=== PATIENT | female | born 1930 | race Hispanic/Latino ===

== ENCOUNTER 2016-12-20 11:53 | Observation (INO) | payer MEDICARE ==
[2016-12-20] MEDS ORDERED: Morphine 4 mg/ml ISec IVP STA (12:37)
[2016-12-20] MEDS ORDERED: cefTRIAXone 1 gm 1 GM/100 ML BAG IV STA (12:37)
--- NOTE | 2016-12-20 12:55 | ED PDOC ---
Arrival/HPI - General Chief Complaint: Lower Extremity Problem/Injury Time Seen by Provider: 12/20/16 12:24 Historian: Patient - History of Present Illness Narrative History of Present Illness (Text): 12/20/16 12:24 Zainab Tracey is an 86 year old female, whose past medical history includes chronic left knee pain, who presents to the emergency department complaining of worsening left knee pain for the last 3 days. Patient indicates that her knee has become swollen as well. Patient also states that her pain has become so extreme that she has difficulty ambulating. Patient has no other complaint at this time. PMD: Dr. Mack Time/Duration: < week Symptom Onset: Gradual Symptom Course: Worsening Severity Level: Mild Activities at Onset: Rest Context: Home Past Medical History - Provider Review Nursing Documentation Reviewed: Yes - Infectious Disease Hx of Infectious Diseases: None - Cardiac Hx Cardiac Disorders: Yes (CAROTID ARTERY STENOSIS,H/O RIGHT BB) Hx Hypertension: Yes - Pulmonary Hx Respiratory Disorders: Yes Hx Chronic Obstructive Pulmonary Disease (COPD): Yes - Neurological Hx Neurological Disorder: Yes Hx Dizziness: Yes - HEENT Hx HEENT Disorder: Yes (WEARS RX GLASSES) Hx Cataracts: Yes Hx Glaucoma: Yes - Endocrine/Metabolic Hx Endocrine Disorders: Yes Hx Hypothyroidism: Yes - Musculoskeletal/Rheumatological Hx Falls: No - Gastrointestinal Hx Gastrointestinal Disorders: Yes (HERNIA) - Genitourinary/Gynecological Hx Genitourinary Disorders: No (URGENCY) Hx Reproductive Disorders: No - Psychiatric Hx Depression: No Hx Emotional Abuse: No Hx Physical Abuse: No Hx Substance Use: No - Surgical History Hx Appendectomy: Yes Hx Cholecystectomy: Yes - Anesthesia Hx Anesthesia: Yes - Suicidal Assessment Feels Threatened In Home Enviroment: No Family/Social History - Physician Review Nursing Documentation Reviewed: Yes Family/Social History: No Known Family HX Smoking Status: Former Smoker Hx Alcohol Use: No Hx Substance Use: No Hx Substance Use Treatment: No Allergies/Home Meds Allergies/Adverse Reactions: Allergies cortisone Allergy (Verified 12/20/16 12:08) RASH iodine Allergy (Verified 12/20/16 12:08) RASH cortisone Allergy (Uncoded 12/20/16 12:08) SWELLING flu vaccine Allergy (Uncoded 12/20/16 12:08) RASH Home Medications: Home Meds Medication Instructions Recorded Confirmed Atenolol 25 mg PO DAILY 04/16/12 12/20/16 Bimatoprost [Lumigan 7.5 ml] 1 drop OP HS 04/16/12 12/20/16 Clopidogrel Hydrogen Sulfate 75 mg PO DAILY 04/16/12 12/20/16 [Plavix] Ezetimibe [Zetia] 10 mg PO DAILY 04/16/12 12/20/16 Levothyroxine Sodium 0.075 mg PO DAILY 04/16/12 12/20/16 [Levothyroxine] Aspirin [Aspirin Chewable] 81 mg PO DAILY 03/09/16 12/20/16 Atorvastatin [Lipitor] 10 mg PO DIN 12/20/16 12/20/16 Review of Systems - Review of Systems Hemo/Lymphatic: absent: Easy Bleeding Psychiatric: absent: Depression Physical Exam - Physical Exam Narrative Physical Exam (Text): - Review of Systems Constitutional: Normal. absent: Fatigue, Weight Change, Fevers Eyes: Normal ENT: Normal Respiratory: Normal absent: SOB, Cough, Sputum Cardiovascular: Normal absent: Chest pain, Palpitations, Syncope Gastrointestinal: Normal absent: Abdominal pain, Diarrhea, Nausea, Vomiting Genitourinary: Normal. absent: Dysuria, Frequency, Hematuria Musculoskeletal: Left knee pain and swelling. absent: Arthralgias, Back Pain, Neck Pain Skin: Normal Neurological: Normal absent: Focal Weakness Endocrine: Normal Hemo/Lymphatic: Normal Psychiatric: Normal - Physical exam Patient appears age appropriate, speaking full sentences without difficulty - Systems Exam Head: Present: Atraumatic, Normocephalic Pupils: Present: PERRL Extraocular Muscles: Present: EOMI Conjunctiva: Present: Normal Mouth: Present: Moist Mucous Membranes Neck: Present: Normal Range of Motion. No: MIDLINE TENDERNESS, Paraspinal Tenderness Respiratory/Chest: Present: Clear to Auscultation, Good Air Exchange. No: Respiratory Distress, Accessory Muscle Use, Tachypnic Cardiovascular: Present: Regular Rate and Rhythm, Normal S1, S2, Peripheral Pulses Present. No: Murmurs Abdomen: Present: Normal Bowel Sounds, No: Tenderness, Peritoneal Signs, Rebound, Guarding, Distention Back: Present: Normal Inspection. No: Midline Tenderness, Paraspinal Tenderness Upper Extremity: Present: Normal Inspection. No: Cyanosis, Edema Lower Extremity: Left knee is diffusely swollen, tender to palpation. Warm compared to right. Distal neurovascular fully intact. Neurological: Present: GCS=15, Speech Normal, cranial nerves II through XII fully intact with no cerebellar abnormality, neuro-sensory fully intact. No focal neurological deficits. Skin: Present: Warm, Dry, Normal Color. No: Rashes Lymphatic: Present: OX3, NI, NC Psychiatric: Present: Alert, Oriented x 3, Normal Insight, Normal Concentration Vital Signs Reviewed: Yes Vital Signs Temp Pulse Resp BP Pulse Ox 12/20/16 15:14 90 18 106/50 L 98 12/20/16 12:59 99.2 F 103 H 16 141/45 L 97 12/20/16 12:02 97.6 F 90 16 155/80 H 97 Temperature: Afebrile Blood Pressure: Hypertensive Pulse: Regular Respiratory Rate: Normal Appearance: Positive for: Well-Appearing, Non-Toxic, Comfortable Pain Distress: None Mental Status: Positive for: Alert and Oriented X 3 Medical Decision Making ED Course and Treatment: Impression: 86 year old female complaining of worsening chronic left knee pain and swelling for 3 days. Differential Diagnosis included but are not limited to: Septic joint arthritis vs. Gout vs. Pseudogout Plan: -- Left knee X-ray -- Blood Culture -- Morphine, Rocephin -- Labs -- Reassess and disposition Prior Visits: Notes and results from previous visits were reviewed. Patient last seen in the ED on 12/14/15 for intermittent RLQ pain which radiates to the RUQ for one week. Patient was discharged home. Progress Notes: 12/20/16 14:01 Left Knee X-ray: Creator : Ellis Santiago MD IMPRESSION: Mild degenerative changes 12/20/16 16:18 Arthrocenthesis performed [facility]. intact post procedure pt tolerated well 80cc serosang. fluid aspirated pt reported relief pt and son state they do not feel comfortable being dc'd home dw Dr. Mack, accepted obs under his service dw Dr. Hodges, states will see pt later - Lab Interpretations Lab Results: 12/20/16 13:00 12/20/16 13:00 Lab Results 12/20/16 13:00: Sodium 139, Potassium 4.2, Chloride 102, Carbon Dioxide 26, Anion Gap 15, BUN 12, Creatinine 0.7, Est GFR ( Amer) > 60, Est GFR (Non- Af Amer) > 60, Random Glucose 95, Calcium 8.2 L, Total Bilirubin 1.8 H, AST 142 H, ALT 89 H, Alkaline Phosphatase 123, Total Protein 7.4, Albumin 3.8, Globulin 3.6, Albumin/Globulin Ratio 1.1 12/20/16 13:00: PT 10.6, INR 0.98, APTT 31.0 H 12/20/16 13:00: WBC 8.7, RBC 4.67, Hgb 14.8, Hct 43.3, MCV 92.7, MCH 31.7, MCHC 34.2, RDW 13.6, Plt Count 271, MPV 10.8, Gran % 75.8 H, Lymph % (Auto) 14.2 L, [place] % (Auto) 9.7 H, Eos % (Auto) 0.1 L, Baso % (Auto) 0.2, Gran # 6.55 H, Lymph # 1.2, [place] # 0.8 H, Eos # 0.0, Baso # 0.02, ESR 10 I have reviewed the lab results: Yes - RAD Interpretation Radiology Orders: 12/20/16 12:32 KNEE LEFT 2 VIEWS (AP & LAT) [RAD] Stat - Medication Orders Current Medication Orders: Discontinued Medications Ceftriaxone Sodium (Rocephin 1 Gram Ivpb) 1 gm in 100 mls @ 200 mls/hr IV STAT STA PRN Reason: Protocol Stop: 12/20/16 13:06 Last Admin: 12/20/16 13:15 Dose: 200 mls/hr Lidocaine/Epinephrine (Lidocaine 1%/Epinephrine 1:222541 30 Ml) 30 ml IJ ONCE ONE Stop: 12/20/16 15:11 Last Admin: 12/20/16 15:35 Dose: 30 ml Comments: Given to MD for procedure. Morphine Sulfate (Morphine) 4 mg IVP STAT STA Stop: 12/20/16 12:38 Last Admin: 12/20/16 13:15 Dose: 4 mg Re-Assess: DERRICK Pain Assessment Document 12/20/16 14:15 [facility] (Rec: 12/20/16 15:39 [facility] [id number]) Pain Reassessment Is this a pain reassessment? Yes Sleep Is patient sleeping during reassessment? Yes Presence of Pain Presence of Pain Yes Pain Scale Used Pain Scale Used Numeric Location Left, Right or Bilateral Left Upper or Lower Lower Pain Location Body Site Leg Description Description Constant Intensity of Pain at present 4 Morphine Sulfate (Morphine) 6 mg IVP STAT STA Stop: 12/20/16 14:17 Last Admin: 12/20/16 14:40 Dose: 6 mg - Scribe Statement The provider has reviewed the documentation as recorded by the Alexandro Mays Provider Scribe Attestation: All medical record entries made by the Scribe were at my direction and personally dictated by me. I have reviewed the chart and agree that the record accurately reflects my personal performance of the history, physical exam, medical decision making, and the department course for this patient. I have also personally directed, reviewed, and agree with the discharge instructions and disposition. Disposition/Present on Arrival - Present on Arrival Any Indicators Present on Arrival: No History of DVT/PE: Yes History of Uncontrolled Diabetes: No Urinary Catheter: No History of Decub. Ulcer: No History Surgical Site Infection Following: None - Disposition Have Diagnosis and Disposition been Completed?: Yes Diagnosis: Knee effusion Disposition: HOSPITALIZED Disposition Time: 16:20 Patient Plan: Observation Condition: FAIR Procedure: Fluid Aspiration - Time Performed Time Performed: 16:00 - Time Out Time Out: Side verified, Site verified, Patient ID confirmed, Sterile procedures obs. - Procedure Procedure: Arthrocentesis - Consent Obtained Consent obtained: Written - Performed By Performed by: Attending Physician - Indications Indication(s): Therapeutic, Diagnostic, Joint effusion, Suspected septic joint - Contraindications Contraindications: None - Location Location: Left, Knee - Anesthetic Technique Anesthetic: Lidocaine 1% w/epi Procedure: Usual prep and drape - Appearance Appearance: Serosanguinous (non-purulent) - Drained Drained ml: 80 - Post-procedure Post-procedure: No fluid leak - Complications Complications: None (no bleeding, significantly decreased effusion) - Patient tolerated procedure Patient tolerated procedure: Well
[2016-12-20 13:18] LABS: ADD MANUAL DIFF? NO
[2016-12-20 13:21] LABS: BASO # 0.02 K/mm3 (0.0-2.0); BASO % 0.2 % (0.0-3.0); EOS % 0.1 % (1.5-5.0); GRAN # 6.55 (1.4-6.5); GRAN % 75.8 % (50.0-68.0); HEMATOCRIT 43.3 % (36.0-48.0); LYMPH # 1.2 (1.2-3.4); LYMPH % 14.2 % (22.0-35.0); MEAN CELL VOLUME 92.7 fL (80.0-105.0); MEAN CORPUSCULAR HEMOGLOBIN 31.7 pg (25.0-35.0); MEAN CORPUSCULAR HGB CONC 34.2 g/dl (31.0-37.0); MEAN PLATELET VOLUME 10.8 fl (7.0-11.0); MONO # 0.8 (0.1-0.6); MONO % 9.7 % (1.0-6.0); PLATELET COUNT 271 10^3/uL (120.0-450.0); RED CELL DISTRIBUTION WIDTH 13.6 % (11.5-14.5); WHITE BLOOD COUNT 8.7 10^3/ul (4.5-11.0)
--- NOTE | 2016-12-20 13:44 | RAD ---
PROCEDURE: Left Knee Radiographs. HISTORY: Pain. COMPARISON: None. FINDINGS: BONES: Mild joint space narrowing is seen in the medial and lateral joint space. There is also some meniscal calcification. JOINTS: Normal. No osteoarthritis. JOINT EFFUSION: Small joint effusion OTHER FINDINGS: None. IMPRESSION: Mild degenerative changes
[2016-12-20 13:54] LABS: INR 0.98 (0.93-1.08)
[2016-12-20 14:13] LABS: ALB/GLOB RATIO 1.1 (1.1-1.8); ALKALINE PHOSPHATASE 123 U/L (38-133); ALT/SGPT 89 U/L (7-56); AST/SGOT 142 U/L (15-39); BILIRUBIN,TOTAL 1.8 mg/dL (0.2-1.3); BLOOD UREA NITROGEN 12 mg/dL (7-21); CALCIUM 8.2 mg/dL (8.4-10.5); CARBON DIOXIDE 26 mmol/L (21-33); CHLORIDE 102 mmol/L (98-107); GFR AFRICAN-AMERICAN > 60; GLUCOSE,RANDOM 95 mg/dL (70-110); POTASSIUM 4.2 mmol/L (3.6-5.0); SODIUM 139 mmol/L (132-148); TOTAL PROTEIN 7.4 g/dL (5.8-8.3)
[2016-12-20 14:28] LABS: ERYTHROCYTE SEDIMENTATION RATE 10 mm/hr (0.0-20.0)
[2016-12-20] MEDS ORDERED: Lidocaine 1%/Epinephrine 1:100000 30 ml vial IJ ONE (15:10)
[2016-12-20 17:56] LABS: FLUID TYPE SYNOVIAL FLUID
--- NOTE | 2016-12-20 19:02 | CP.PCM.PN ---
Subjective - Date & Time of Evaluation Date of Evaluation: 12/20/16 Time of Evaluation: 18:56 - Subjective Subjective: Patient was seen for vomiting for as per nurse. She has received total of morphine sulfate 10 mg IV in the ER. This 86 year old woman was admitted Has PMH of carotid stenosis , ASHD, COPD, OA, gait disorder, Vit B12 deficiency, hypothyroidism cholecystectomy , biliary stent, Objective - Vital Signs/Intake and Output Vital Signs (last 24 hours): Temp Pulse Resp BP Pulse Ox 99.2 F 100 H 18 130/65 97 12/20/16 12:59 12/20/16 17:02 12/20/16 17:02 12/20/16 17:02 12/20/16 17:02 145/72;91/min,97.9*F,20/min,95% 2L/min. - Medications Medications: Current Medications Aspirin (Aspirin Chewable) 81 mg PO DAILY ANAY Atenolol (Tenormin) 25 mg PO DAILY ANAY Latanoprost (Xalatan Opht) 0 ml OU HS ANAY Levothyroxine Sodium (Synthroid) 75 mcg PO DAILY ANAY - Labs Labs: PT 10.6 Seconds (9.9-11.8) 12/20/16 13:00 INR 0.98 (0.93-1.08) 12/20/16 13:00 APTT 31.0 Seconds (23.7-30.8) H 12/20/16 13:00 Laboratory Last Values WBC 8.7 10^3/ul (4.5-11.0) 12/20/16 13:00 RBC 4.67 10^6/uL (3.5-6.1) 12/20/16 13:00 Hgb 14.8 gm/dL (12.0-16.0) 12/20/16 13:00 Hct 43.3 % (36.0-48.0) 12/20/16 13:00 MCV 92.7 fL (80.0-105.0) 12/20/16 13:00 MCH 31.7 pg (25.0-35.0) 12/20/16 13:00 MCHC 34.2 g/dl (31.0-37.0) 12/20/16 13:00 RDW 13.6 % (11.5-14.5) 12/20/16 13:00 Plt Count 271 10^3/uL (120.0-450.0) 12/20/16 13:00 MPV 10.8 fl (7.0-11.0) 12/20/16 13:00 Gran % 75.8 % (50.0-68.0) H 12/20/16 13:00 Lymph % (Auto) 14.2 % (22.0-35.0) L 12/20/16 13:00 [place] % (Auto) 9.7 % (1.0-6.0) H 12/20/16 13:00 Eos % (Auto) 0.1 % (1.5-5.0) L 12/20/16 13:00 Baso % (Auto) 0.2 % (0.0-3.0) 12/20/16 13:00 Gran # 6.55 (1.4-6.5) H 12/20/16 13:00 Lymph # 1.2 (1.2-3.4) 12/20/16 13:00 [place] # 0.8 (0.1-0.6) H 12/20/16 13:00 Eos # 0.0 (0.0-0.7) 12/20/16 13:00 Baso # 0.02 K/mm3 (0.0-2.0) 12/20/16 13:00 ESR 10 mm/hr (0.0-20.0) 12/20/16 13:00 PT 10.6 Seconds (9.9-11.8) 12/20/16 13:00 INR 0.98 (0.93-1.08) 12/20/16 13:00 APTT 31.0 Seconds (23.7-30.8) H 12/20/16 13:00 Sodium 139 mmol/L (132-148) 12/20/16 13:00 Potassium 4.2 mmol/L (3.6-5.0) 12/20/16 13:00 Chloride 102 mmol/L (98-107) 12/20/16 13:00 Carbon Dioxide 26 mmol/L (21-33) 12/20/16 13:00 Anion Gap 15 (10-20) 12/20/16 13:00 BUN 12 mg/dL (7-21) 12/20/16 13:00 Creatinine 0.7 mg/dL (0.5-1.4) 12/20/16 13:00 Est GFR ( Amer) > 60 12/20/16 13:00 Est GFR (Non-Af Amer) > 60 12/20/16 13:00 Random Glucose 95 mg/dL (70-110) 12/20/16 13:00 Calcium 8.2 mg/dL (8.4-10.5) L 12/20/16 13:00 Total Bilirubin 1.8 mg/dL (0.2-1.3) H 12/20/16 13:00 AST 142 U/L (15-39) H 12/20/16 13:00 ALT 89 U/L (7-56) H 12/20/16 13:00 Alkaline Phosphatase 123 U/L (38-133) 12/20/16 13:00 C-React Prot High Sens > 15.00 mg/L (1.00-3.00) H 12/20/16 13:00 Total Protein 7.4 g/dL (5.8-8.3) 12/20/16 13:00 Albumin 3.8 g/dL (3.0-4.8) 12/20/16 13:00 Globulin 3.6 gm/dL 12/20/16 13:00 Albumin/Globulin Ratio 1.1 (1.1-1.8) 12/20/16 13:00 Fluid Type Synovial fluid 12/20/16 16:15 - Constitutional Appears: Well, No Acute Distress - Head Exam Head Exam: ATRAUMATIC, NORMAL INSPECTION, NORMOCEPHALIC - Eye Exam Additional comments: Sclera white. - ENT Exam ENT Exam: Mucous Membranes Dry, Mucous Membranes Moist, Normal Exam - Neck Exam Neck Exam: Normal Inspection - Respiratory Exam Respiratory Exam: NORMAL BREATHING PATTERN - Cardiovascular Exam Cardiovascular Exam: REGULAR RHYTHM. absent: JVD - GI/Abdominal Exam GI & Abdominal Exam: Soft (Yes.), Normal Bowel Sounds. absent: Bruit, Distended , Firm, Guarding, Rigid, Tenderness, Hernia, Mass, Organomegaly, Pulsatile Mass , Rebound - Rectal Exam Rectal Exam: Deferred - Extremities Exam Extremities Exam: Normal Inspection - Back Exam Back Exam: NORMAL INSPECTION - Neurological Exam Neurological Exam: Alert, Oriented x3 - Psychiatric Exam Psychiatric exam: Normal Affect, Normal Mood - Skin Skin Exam: Normal Color Assessment and Plan - Assessment and Plan (Free Text) Assessment: A/P:Nausea/Dry Heaves. COPD Elevated LFT's. Biliary obstruction. Carotid stenosis. ASHD. Hypothyroidism. Zofran 4 mg IV x 1. Protonix 40 mg IV now, Protonix 40 mg PO daily. Continue present management.
[2016-12-20] MEDS: Latanoprost 2.5 ml Opht Soln OU SCH (21:23)
[2016-12-20 22:02] LABS: SYNOVIAL FLUID TOTAL COUNT 100 (0-0)
[2016-12-20 22:18] VITALS: BMI 20.5
[2016-12-20] MEDS ORDERED: Pneumococcal 23-Valent Vaccine IM ONE (22:19)
[2016-12-20] MEDS: Vancomycin 1gm in NS 250ml 1 GM/250 ML BAG IVPB SCH (23:30)
[2016-12-21] MEDS: Pantoprazole 40 mg EC Tab PO SCH (05:43)
[2016-12-21] MEDS ORDERED: MethylPREDNISolone Depo 40 mg/ml Inj IM ONE (06:54)
[2016-12-21] MEDS ORDERED: Bupivacaine 0.5% Inj(30mL) IJ ONE (06:54)
[2016-12-21 07:16] LABS: ADD MANUAL DIFF? NO
[2016-12-21 07:26] LABS: BASO # 0.01 K/mm3 (0.0-2.0); BASO % 0.1 % (0.0-3.0); EOS % 0.1 % (1.5-5.0); GRAN # 5.48 (1.4-6.5); GRAN % 71.3 % (50.0-68.0); LYMPH # 1.4 (1.2-3.4); LYMPH % 18.6 % (22.0-35.0); MEAN CORPUSCULAR HEMOGLOBIN 30.7 pg (25.0-35.0); MEAN CORPUSCULAR HGB CONC 33.3 g/dl (31.0-37.0); MEAN PLATELET VOLUME 10.4 fl (7.0-11.0); MONO # 0.8 (0.1-0.6); MONO % 9.9 % (1.0-6.0); PLATELET COUNT 245 10^3/uL (120.0-450.0); RED CELL DISTRIBUTION WIDTH 13.5 % (11.5-14.5); WHITE BLOOD COUNT 7.7 10^3/ul (4.5-11.0)
[2016-12-21 07:52] LABS: ALB/GLOB RATIO 1.2 (1.1-1.8); ALKALINE PHOSPHATASE 305 U/L (38-133); ALT/SGPT 666 U/L (7-56); BILIRUBIN,TOTAL 2.3 mg/dL (0.2-1.3); BLOOD UREA NITROGEN 17 mg/dL (7-21); CALCIUM 9.5 mg/dL (8.4-10.5); CARBON DIOXIDE 26 mmol/L (21-33); CHLORIDE 98 mmol/L (98-107); GFR AFRICAN-AMERICAN > 60; GLUCOSE,RANDOM 90 mg/dL (70-110); POTASSIUM 4.4 mmol/L (3.6-5.0); SODIUM 136 mmol/L (132-148); TOTAL PROTEIN 7.7 g/dL (5.8-8.3)
[2016-12-21 08:00] LABS: FLUID TYPE SYNOVIAL FLUID
[2016-12-21 08:38] LABS: SYNOVIAL FLUID TOTAL COUNT 100 (0-0)
[2016-12-21 08:52] LABS: AST/SGOT 996 U/L (15-39)
[2016-12-21 08:58] LABS: SYNOVIAL FLUID LYMPHOCYTE 13.5 % (0-0); SYNOVIAL FLUID NEUTROPHIL 86.5 % (0-0)
--- NOTE | 2016-12-21 09:25 | CON ---
DATE: 12/21/2016 I knew about the consult yesterday but Dr. Storey told me he aspirated the left knee of fluid with underlying osteoarthritis, so I did not want to repeat that again. The next day, which is today, , she still has an effusion of the left knee. X-ray shows moderate osteoarthritis with decrea sed joint space medially and there is a tense effusion still on the left knee, so I prepped and drape d the knee again and aspirated 60 mL of turbid synovial fluid. No suggestion of an infection. A pre vious white count from the fluid was 25,000 in round numbers and no organisms on Gram stain. So I se nt the fluid that I took out for crystal analysis as it might be pseudogout because there is some tess cification of the meniscus on both sides, medial and lateral. So I injected it with Depo-Medrol and Marcaine. Hopefully will get some good relief, and wait for the final cultures and crystal analysis to come back. Ellis Pope DO cc: [id number] TT: 12/21/2016 09:25:07 Confirmation # [id number] Dictation # [id number] mn
[2016-12-21] MEDS ORDERED: Barium Sulfate Susp 2.1% w/v, 2.0% w/w 450 mL Bottle PO ONE (09:32)
[2016-12-21] MEDS: Levothyroxine 75 MCG TAB PO SCH (09:43)
[2016-12-21] MEDS ORDERED: cefTRIAXone 1 gm 1 GM/100 ML BAG IVPB SCH (10:00)
[2016-12-21] MEDS: Vancomycin 1gm in NS 250ml 1 GM/250 ML BAG IVPB SCH ×2 (11:41→23:11)
--- NOTE | 2016-12-21 12:47 | CON ---
DATE: 12/21/2016 Seen and examined at the bedside earlier this morning. REQUEST FOR CONSULT: For elevated liver functions and nausea. The chart was reviewed. HISTORY OF PRESENT ILLNESS: This is an 86-year-old female with a past medical history of chronic lef t knee pain, carotid artery stenosis, hypertension and cholecystectomy, came to the Emergency Room wi th complaints of worsening left knee pain for the past 3 days. The patient states that the pain is s o bad it is difficult for her to ambulate. She had fluid removed yesterday as well as this morning a s per patient. In review of her labs, on admission she was found to have elevated liver enzymes. Sh e did experience some nausea. No vomiting, no reports of any hematemesis, no shortness of breath or chest pain. No complaints of any current abdominal pain or any change in bowel habits or overt GI bl eed. She does have a history of hiatal hernia. She does complain of some difficulty with swallowing , but no choking on food or fluids. She does have a history of dilated common bile duct with biliary stent. PAST MEDICAL HISTORY: Degenerative arthritis, carotid artery stenosis, COPD, atherosclerotic heart d isease, hypothyroidism, hypertension, diverticulosis, diverticulitis. PAST SURGICAL HISTORY: She had ERCP in the past with biliary stent, history of ascending cholangitis , history of cholecystectomy, appendectomy. ALLERGIES: CORTISONE, IODINE, FLU VACCINE. FAMILY HISTORY: Noncontributory at this time. SOCIAL HISTORY: The patient was a former smoker. Denies ETOH or substance abuse. MEDICATIONS: Reviewed as per MAR. The patient is on Plavix, Lipitor, Tenormin, aspirin, Lumigan, Ze tia and levothyroxine. REVIEW OF SYSTEMS: Systems reviewed with positive findings, see HPI. VITAL SIGNS: Temperature is 97.8, blood pressure is 133/66, pulse 92, respirations 18, 93 O2 sat. LABORATORY DATA: Today are WBC 7.7, H and H are 13.0 and 39.0, platelets are 245. Her PT on admissi on is 10.6, INR is 0.98 and PTT 31.0. Sodium today is 136, K 4.4, BUN 17, creatinine is 0.9. Total bilirubin is 2.3, her AST is 996, ALT 666, alkaline phosphatase is 306; these levels are elevated tod ay. She had a CRP and that was greater than 15.00. On admission, she had an x-ray of the right knee and that showed mild degenerative changes. There is a small joint effusion and some meniscal calcif ication. PHYSICAL EXAMINATION: HEENT: Sclerae are anicteric. NECK: Supple. CARDIAC: S1, S2. LUNGS: With decreased breath sounds but good air entry. No rales or wheeze. ABDOMEN: With bowel sounds. Soft, not distended. No tenderness appreciated on palpation. No rebou nd or guarding. EXTREMITIES: Bilateral knees appear swollen. Lower extremities: Positive pedal pulses. No edema. NEUROLOGIC: Awake, alert, and oriented. ASSESSMENT: This is an 86-year-old female with a history of hypertension, common bile duct dilatatio n with history of ascending cholangitis with endoscopic retrograde cholangiopancreatography in the [facility] with biliary stent, she did have a cholecystectomy, who comes in with complaints of difficulty wit h ambulation, the patient with osteoarthritis of the left knee. She is status post removal of fluid, aspirating of synovial fluid. The patient is noted to have initially elevated liver enzymes, and to day they have gone up. Increasing liver function tests, rule out any common bile duct stones. Other comorbidities are hypothyroidism, carotid stenosis, chronic obstructive pulmonary disease. PLAN: Continue to trend LFTs. Follow up her wound cultures. Avoid any hepatotoxic drugs. We will request for a hepatitis panel and also request for abdominal ultrasound, check CBD ducts. In view of history of large hiatal hernia and complaint of dysphagia, we will request a CT scan of abdomen and pelvis with only oral contrast to further evaluate this, and start the patient on Actigall. Continue DVT prophylaxis. Continue GI prophylaxis. The patient is on Protonix. She is also on IV antibioti cs of ceftriaxone and vancomycin and is also on aspirin. Will change her diet to a clear liquid and later on recommend puree diet after evaluation of CT scan. The patient is also being followed by ID to rule out any septic joint as well as orthopedic. Thank you for this consult and for allowing us to participate in your patient's care. Will make furt her recommendations based upon patient's clinical course. The patient was seen and case discussed wi Dr. Smith. Elva MCNAIR cc: [id number] TT: 12/21/2016 12:46:48 Confirmation # [id number] Dictation # [id number] mn
--- NOTE | 2016-12-21 12:47 | HP ---
HISTORY OF PRESENT ILLNESS: An 86-year-old female who was brought to [place] [facility] with a s everal day history of swelling of the left knee, extreme pain and difficulty walking. PAST MEDICAL HISTORY: Cholecystectomy, biliary stent which has been removed, coronary disease, arter iosclerotic heart disease, hyperlipidemia, hypothyroid disease, glaucoma. SOCIAL HISTORY: She is a nonsmoker, nondrinker. ALLERGY HISTORY: CORTISONE, IODINE AND THE FLU VACCINE. HOME MEDICATIONS: Consist of Synthroid 75 mcg daily, Zetia 10 mg daily, Plavix 75 mg daily, Lumigan 1 drop at bedtime to the eyes, Lipitor 10 mg daily, Tenormin 25 mg daily and Ecotrin 81 mg daily. The patient in the Emergency Room apparently had a drainage of fluid from the left knee and was given IV Rocephin by the Emergency Room physician. However, it was stated that the patient was having suc h severe pain and having difficulty ambulating and it was felt that the patient should be admitted. PHYSICAL EXAMINATION: VITAL SIGNS: She had a low-grade temp of 99.2, her blood pressure was 130/62, respiratory rate was 1 8, oxygen saturation was 97% on room air. NECK: Supple. There is no JVD. LUNGS: Show some chronic rhonchitic changes at the bases. HEART: A regular S1, S2 rhythm. ABDOMEN: Soft with positive bowel sounds. EXTREMITIES: Show swelling of the left knee. There is residual dry Betadine from the tap in the [facility] rgency Room and no evidence of edema. LABORATORY DATA: Showed a WBC of 8.7, RBC 4.67, hemoglobin is 14.8, hematocrit 43.3, platelet count 271. PT of 10.6 with an INR of 0.98, PTT of 31. Chemistry showed normal electrolytes. Her BUN is 1 2, creatinine is 0.7, calcium is 8.2. The total bilirubin is 1.8. The AST is 142. The ALT is 89. C-reactive protein came back at 15. Analysis of the fluid initially showed synovial WBCs of 227,259, RBCs of 36,000, neutrophils 87, lymphocytes 5, monos/macrophages 8 and the comment was that it was a bloody fluid. Consults have been placed with orthopedics and infectious disease. The knee x-ray was reported as sh owing arthritis. Also a consult has been requested with gastroenterology because of the elevation in the liver function tests. Elva Mack MD cc: [id number] TT: 12/21/2016 12:46:29 tn
--- NOTE | 2016-12-21 14:33 | CT ---
PROCEDURE: CT Abdomen and Pelvis with contrast HISTORY: FU hiatal hernia COMPARISON: 12/14/2015 TECHNIQUE: Contrast dose: No IV contrast. Two bottles of Readi-Cat Radiation dose: Total exam DLP = 378 mGy-cm. This CT exam was performed using one or more of the following dose reduction techniques: Automated exposure control, adjustment of the mA and/or kV according to patient size, and/or use of iterative reconstruction technique. FINDINGS: LOWER THORAX: Minimal right basal atelectatic changes LIVER: Unremarkable. No gross lesion or ductal dilatation. GALLBLADDER AND BILE DUCTS: Status post cholecystectomy prominent common bile duct consistent with this postsurgical status and patient's age. No change appreciated PANCREAS: Unremarkable. No gross lesion or ductal dilatation. SPLEEN: Unremarkable. ADRENALS: No interval mass. Bilateral nodular limb mild thickening consistent with nonspecific hyperplasia. No worrisome masses KIDNEYS AND URETERS: Unremarkable. No hydronephrosis. Limited exam regarding evaluating for potential masses without IV contrast VASCULATURE: Unremarkable. No aortic aneurysm. BOWEL: Diverticulosis without gross diverticulitis No obstruction. No gross mural thickening. Redundant and ptotic transverse colon APPENDIX: Normal appendix. PERITONEUM: Unremarkable. No free fluid. No free air. LYMPH NODES: Unremarkable. No enlarged lymph nodes. BLADDER: Unremarkable. REPRODUCTIVE: Unremarkable. BONES: No acute fracture. Senescent changes OTHER FINDINGS: Large hiatal lyakri-puwwwyo-svsuizacs IMPRESSION: Similar-appearing large hiatal hernia. Minimal right lung base atelectatic changes. No other interval changes noted other findings as above
--- NOTE | 2016-12-21 17:37 | US ---
HISTORY: Elevated LFT COMPARISON: CT abdomen and pelvis with a IV contrast performed 12/21/16 TECHNIQUE: Sonographic evaluation of the abdomen. FINDINGS: LIVER: Measures 13.2 cm in sagittal dimension and appears within normal limits of size, shape, and echotexture. No focal hepatic mass identified. The main portal vein appears patent with normal directional flow. Intrahepatic biliary ductal dilatation. GALLBLADDER: Cholecystectomy. COMMON BILE DUCT: Measures 1.2 cm. PANCREAS: Not well visualized. RIGHT KIDNEY: Measures 8.8 x 4.4 x 4.8 cm. Mildly dilated right renal pelvis. No obstructing calculus evident. LEFT KIDNEY: Measures 9.0 x 4.0 x 4.4 cm. No obstructing calculus or hydronephrosis identified. 1.7 x 1.7 x 1.6 cm cyst. SPLEEN: Measures approximately 7.4 cm. AORTA: Limited views appear unremarkable. IVC: Limited views appear unremarkable. OTHER FINDINGS: None. IMPRESSION: Dilated common bile duct in the setting of cholecystectomy. Intrahepatic biliary ductal dilatation. 1.7 cm left renal cyst. Mildly dilated right renal pelvis.
--- NOTE | 2016-12-21 22:01 | CON ---
DATE: 12/21/2016 ADDENDUM This is an addendum to the GI consultation report dictated by Elva Joyner NP. The patient was seen and evaluated earlier today. The patient was admitted with knee pain, which she had aspiration done. The patient was found to have elevated LFTs. The patient also has complaints of intermittent episodes of dysphagia. The patient has a large paraesophageal hernia. Had a surgery done in the past. The CT revealed the hernia, it is a large hernia. The patient also has a history of common bile duct stone, status post ERCPs in the past, stent placement and removal in the past. It was a technically challenging ERCP at that time. The patient was recommended to be on a long-term Actigall, the patient did not complain with that. Now admitted with the elevated LFTs. RECOMMENDATIONS: 1. On examination, the abdomen is soft, as there is no tenderness, would recommend patient to be on liquid diet. 2. Get a CT and abdominal sonogram to further evaluate. We will continue to closely follow up her care and suggest further management based on the clinical course. Thank you very much for allowing me to participate in the care of the patient. Abdifatah Smith MD cc: [id number] TT: 12/21/2016 22:00:13 Confirmation # [id number] Dictation # [id number] salo RUDD
[2016-12-21] MEDS: Latanoprost 2.5 ml Opht Soln OU SCH (22:21)
--- NOTE | 2016-12-21 23:26 | CP.PCM.CON ---
History of Present Illness - History of Present Illness History of Present Illness: 86 year old female with PMH of dyslipidemia, carotid artery stenosis, COPD, HTN , glaucoma, cataracts, hiatal hernia, right breast cyst came in complaining of worsening left knee pain for the past 3 days. She has had pain in the said knee for months now, but this has been worse. It is associated with swelling and redness. She denies fever or chills, no known trauma to the knee or leg, no animal contacts, no travel outside of [place] in the past 3 months, no nausea or vomiting, no chest pain, no SOB, no cough or rhinorrhea, no headache or dizziness, no diarrhea, no dysuria. The patient underwent arthrocentesis of her knee. Infectious Diseases consult is requested to further evaluate and manage. Review of Systems - Review of Systems All systems: reviewed and no additional remarkable complaints except (as per HPI ) Past Patient History - Infectious Disease Hx of Infectious Diseases: None - Past Social History Smoking Status: Former Smoker - CARDIAC Hx Cardiac Disorders: Yes (CAROTID ARTERY STENOSIS,H/O RIGHT BB) Hx Hypercholesterolemia: Yes Hx Hypertension: Yes - PULMONARY Hx Respiratory Disorders: Yes Hx Chronic Obstructive Pulmonary Disease (COPD): Yes - NEUROLOGICAL Hx Neurological Disorder: Yes Hx Dizziness: Yes - HEENT Hx HEENT Problems: Yes (WEARS RX GLASSES, [place]) Hx Cataracts: Yes Hx Glaucoma: Yes - ENDOCRINE/METABOLIC Hx Endocrine Disorders: Yes Hx Hypothyroidism: Yes - INTEGUMENTARY Other/Comment: buttocks slightly red, multiple red areas l knee/lle - MUSCULOSKELETAL/RHEUMATOLOGICAL Hx Falls: No - GASTROINTESTINAL Hx Gastrointestinal Disorders: Yes (hiatal hernia) - GENITOURINARY/GYNECOLOGICAL Hx Genitourinary Disorders: No (URGENCY) - PSYCHIATRIC Hx Substance Use: No - SURGICAL HISTORY Hx Appendectomy: Yes Hx Cholecystectomy: Yes Other/Comment: r breast cyst removed - ANESTHESIA Hx Anesthesia: Yes Meds Allergies/Adverse Reactions: Allergies Allergy/AdvReac Type Severity Reaction Status Date / Time cortisone Allergy RASH Verified 12/20/16 12:08 iodine Allergy RASH Verified 12/20/16 12:08 cortisone Allergy SWELLING Uncoded 12/20/16 12:08 flu vaccine Allergy RASH Uncoded 12/20/16 12:08 - Medications Medications: Current Medications Aspirin (Aspirin Chewable) 81 mg PO DAILY [facility] Atenolol (Tenormin) 25 mg PO DAILY [facility] Latanoprost (Xalatan Opht) 0 ml OU HS [facility] Last Admin: 12/20/16 21:23 Dose: 2.5 ml Levothyroxine Sodium (Synthroid) 75 mcg PO DAILY [facility] Pantoprazole Sodium (Protonix Ec Tab) 40 mg PO 0630 [facility] Physical Exam - Constitutional Appears: Non-toxic, No Acute Distress - Head Exam Head Exam: NORMAL INSPECTION - ENT Exam ENT Exam: Mucous Membranes Moist - Neck Exam Neck exam: Negative for: Lymphadenopathy, Meningismus - Respiratory Exam Respiratory Exam: Decreased Breath Sounds - Cardiovascular Exam Cardiovascular Exam: +S1, +S2 - GI/Abdominal Exam GI & Abdominal Exam: Soft. absent: Tenderness - Extremities Exam Additional comments: left knee with some swelling noted Results - Vital Signs Recent Vital Signs: Last Vital Signs Temp 99.2 F 12/20/16 22:05 Pulse 100 H 12/20/16 22:05 Resp 18 12/20/16 22:05 BP 130/62 12/20/16 22:05 Pulse Ox 97 12/20/16 17:02 - Labs Result Diagrams: 12/21/16 06:45 12/21/16 06:45 Assessment & Plan - Assessment and Plan (Free Text) Plan: Assessment Left knee swelling, R/O septic arthritis, R/O gout, R/O pseudogout S/P arthrocentesis POD #1 dyslipidemia carotid artery stenosis COPD HTN glaucoma cataracts hiatal hernia right breast cyst Plan Started patient on Vancomycin and Rocephin pending knee fluid analysis, cx, blood cx Discussed with Dr. Mack Will monitor clinically
[2016-12-22 05:58] LABS: URIC ACID SYNOVIAL FLUID 3.8 mg/dL (<6.0)
--- NOTE | 2016-12-22 18:53 | PN ---
DATE: 12/22/2016 LOCATION: Room 378, bed 2, [facility]. The patient was seen earlier this morning. SUBJECTIVE: The patient is resting comfortably in bed, not in distress. Has less pain in the left k nee. No fevers overnight. No nausea. OBJECTIVE: VITAL SIGNS: The patient is afebrile, heart rate of 64, respiratory rate of 20. HEAD AND NECK: Normocephalic, atraumatic. No cervical lymphadenopathy. CHEST: Decreased breath sounds bilaterally. HEART: S1 and S2 are normal. ABDOMEN: Soft, nontender, nondistended. EXTREMITIES: For knee examination, on the left side there is decreased swelling and decreased erythe ma. LABORATORY DATA: The knee fluid is showing calcium pyrophosphate crystals. So far, cultures are neg ative x 24 hours from the fluid. There are more than 27,000 WBCs in the knee fluid. ASSESSMENT: We have an 86-year-old female with past medical history of carotid artery stenosis, dysl ipidemia, chronic obstructive pulmonary disease, hypertension, glaucoma, cataracts, hiatal hernia, pr esenting with left knee swelling and effusion. Need to rule out septic arthritis, but this is more l ikely pseudogout. PLAN: We are waiting for final culture results before we discontinue vancomycin and Rocephin, but by tomorrow, if all the cultures continue to be negative, we will stop this, and the patient will need to continued therapy for pseudogout. I will continue to follow this patient clinically. Vargas Weller M.D. cc: [id number] TT: 12/22/2016 18:52:43 Confirmation # [id number] Dictation # [id number] caryl
--- NOTE | 2016-12-22 20:43 | PN ---
DATE: 12/22/2016 This is an 86-year-old female resting in bed comfortably this morning. She offers no specific compla ints, although she does state that she is getting pain in the left knee with movement which is impedi ng her ability to walk. She states that the orthopedist tapped the knee yesterday and sent fluid off for analysis. Nursing staff states that there were no particular problems during the night. PHYSICAL EXAMINATION: VITAL SIGNS: Her temp is 97, blood pressure is 120/64, oxygen saturation is 95% on room air. GENERAL: She is alert and oriented x 3. LUNGS: Clear. HEART: Has a regular S1, S2 rhythm. ABDOMEN: Soft with positive bowel sounds. EXTREMITIES: Show no evidence of edema. The patient has blood cultures which are negative at 48 hours. Fluid analysis from the knee to date is not growing any organisms. She is pending labs. MEDICATIONS: She is currently on Actigall 300 mg b.i.d., Ecotrin 81 mg daily, Plavix 75 mg daily, Pr otonix 40 mg daily. She is on Rocephin and vancomycin IV by infectious disease. Synthroid 75 mcg da prince for hypothyroid disease and Xalatan eyedrops. ASSESSMENT AND PLAN: A request has been made for physical therapy to initiate ambulation with the vernon baez, although the reason for her hospitalization was partially due to the fact that she was having such pain and had difficulty ambulating, which is going to be assessed with occupational and physical therapy. At the same time, she had markedly elevated liver function tests with evidence of dilated intrabiliary system. GI is currently assessing the patient for this. We will continue current level of supportive care in a patient with a past medical history of chronic obstructive pulmonary disease, gallstone disease, status post cholecystectomy, biliary stent yesterday, which has been removed, deg enerative arthritis, chronic obstructive pulmonary disease, arteriosclerotic heart disease and caroti d disease. Elva Mack MD cc: [id number] TT: 12/22/2016 20:43:11 Confirmation # [id number] Dictation # [id number] bina
[2016-12-22] MEDS: Latanoprost 2.5 ml Opht Soln OU SCH (21:18)
[2016-12-22] MEDS: Vancomycin 1gm in NS 250ml 1 GM/250 ML BAG IVPB SCH (23:06)
[2016-12-23] MEDS: Pantoprazole 40 mg EC Tab PO SCH (05:48)
[2016-12-23 06:59] LABS: ADD MANUAL DIFF? NO
[2016-12-23 07:16] LABS: BASO # 0.03 K/mm3 (0.0-2.0); BASO % 0.4 % (0.0-3.0); GRAN # 6.06 (1.4-6.5); GRAN % 74.1 % (50.0-68.0); HEMATOCRIT 40.4 % (36.0-48.0); LYMPH # 1.6 (1.2-3.4); LYMPH % 19.3 % (22.0-35.0); MEAN CELL VOLUME 92.4 fL (80.0-105.0); MEAN CORPUSCULAR HEMOGLOBIN 31.1 pg (25.0-35.0); MEAN CORPUSCULAR HGB CONC 33.7 g/dl (31.0-37.0); MEAN PLATELET VOLUME 10.3 fl (7.0-11.0); MONO # 0.5 (0.1-0.6); MONO % 6.2 % (1.0-6.0); PLATELET COUNT 313 10^3/uL (120.0-450.0); RED CELL DISTRIBUTION WIDTH 13.6 % (11.5-14.5); WHITE BLOOD COUNT 8.2 10^3/ul (4.5-11.0)
[2016-12-23 07:59] LABS: ALB/GLOB RATIO 1.1 (1.1-1.8); ALKALINE PHOSPHATASE 244 U/L (38-133); ALT/SGPT 306 U/L (7-56); AST/SGOT 122 U/L (15-39); BILIRUBIN,DIRECT 0.6 mg/dL (0.0-0.4); TOTAL PROTEIN 7.7 g/dL (5.8-8.3)
--- NOTE | 2016-12-23 08:17 | PN ---
DATE: 12/22/2016 HISTORY OF PRESENT ILLNESS: The chart reviewed, discussed with the nursing staff. The patient's LFT s have been showing an upward trend before. Requested for an MRCP. IMAGING STUDIES: The CT scan was reviewed. The patient has a large hiatal hernia, paraesophageal co mplement. The patient's CAT scan was reviewed. This patient has a common bile duct that appears to be dilated. PLAN: The concern is the large hiatal hernia with paraesophageal complement. Would be a difficult p rocedure for an ERCP on this patient passing the scope and will attempt. We will follow up with the LFTs and discuss with Dr. Mack. Abdifatah Smith MD cc: [id number] TT: 12/23/2016 01:04:57 Confirmation # [id number] Dictation # [id number] mn
[2016-12-23 08:27] LABS: BLOOD UREA NITROGEN 17 mg/dL (7-21); CALCIUM 9.6 mg/dL (8.4-10.5); CARBON DIOXIDE 28 mmol/L (21-33); CHLORIDE 100 mmol/L (98-107); GFR AFRICAN-AMERICAN > 60; GLUCOSE,RANDOM 84 mg/dL (70-110); POTASSIUM 4.7 mmol/L (3.6-5.0); SODIUM 139 mmol/L (132-148)
[2016-12-23] MEDS: Levothyroxine 75 MCG TAB PO SCH (09:30)
--- NOTE | 2016-12-23 10:20 | PN ---
DATE: 12/23/2016 An 86-year-old female resting in bed comfortably this morning. Nursing staff relates that there were no particular problems during the night. The patient states that she is having less pain in the kne e. She did get up and walk to the bathroom. She states that she has not moved her bowels for severa l days. PHYSICAL EXAMINATION: VITAL SIGNS: Her temp is 98, her blood pressure is 133/67, her oxygen sat is 97% on room air, respir atory rate is 18. NECK: Supple. LUNGS: Show scattered rhonchi. HEART: Regular S1, S2 rhythm. ABDOMEN: Soft with positive bowel sounds. EXTREMITIES: Show no evidence of edema. NEUROLOGIC: She is alert and oriented x 3. LABORATORY DATA: Shows that her CBC: WBC is 8.2, RBC 4.37, hemoglobin 13.6, hematocrit 40.4, platel et count is 313. Chemistry shows normal electrolytes, the BUN is 17, the creatinine is 0.7. Her AST is now 122, the ALT is 306 and the alkaline phosphatase is 244. ASSESSMENT AND PLAN: 1. The patient is currently receiving IV antibiotic therapy by infectious disease for possible infec tion of the knee. This is going to be discontinued as the cultures at this time are negative. 2. She is on Xalatan eyedrops for glaucoma, Tenormin 25 mg daily for her hypertension, Synthroid 75 mcg for hypothyroid disease, Protonix 40 mg for history of gastritis. She is on Plavix 75 mg because of her history of arteriosclerotic heart disease, MiraLax 17 grams daily for constipation, Ecotrin 8 1 mg daily for arteriosclerotic heart disease and Actigall 300 mg b.i.d. Gastroenterology is looking at the patient because of the elevation in the LFTs and the ultrasound findings and they are discuss ing with the patient the possibility of a diagnostic study, possibly an endoscopic ultrasound. We wi ll continue current level of care and follow up the patient's lab work. Physical therapy has been re quested to work with the patient to ambulate the patient. Orthopedics is following the patient as we ll. Elva Mack MD cc: [id number] TT: 12/23/2016 10:20:10 Confirmation # [id number] Dictation # [id number] en
[2016-12-23] MEDS: POLYETHYLENE GLYCOL 3350 17 GM/Dose PACKET PO SCH (10:24)
--- NOTE | 2016-12-23 13:19 | PN ---
DATE: 12/23/2016 Seen and examined at the bedside earlier this morning. The patient denies nausea, vomiting, has some abdominal cramps, has not had a bowel movement the past couple of days. She originally does get con stipated at home, does not take any laxatives. Last BM was 4 days ago. Tolerating the clear liquids . VITAL SIGNS: Temperature is 98.1, blood pressure 141/71, pulse 76, respirations 20, 97% room air. LABORATORIES: WBCs 8.2, H and H is 13.6 and 40.4, platelets is 313. Sodium 139, K 4.7, BUN 17, crea tinine 0.7, total bilirubin is 1.0, direct bili 0.6, AST 122, ALT 306, alkaline phosphatase is 244. This shows a downward trend. Her hepatitis panel was negative. The patient had a CAT scan the other day, which shows a large hiatal hernia. CT scan was done and fo und to have large hiatal hernia. Ultrasound was also done. Abdominal ultrasound was also done showi ng 1.7 cm left renal cyst and dilated CBD in the setting of a cholecystectomy. The CBD measured 1.2. cm. The patient's liver enzymes are improving. Other comorbidities history is she does have history of a scending cholangitis with endoscopic retrograde cholangiopancreatogram in the past with a biliary pritesh nt with a history of a cholecystectomy. Originally came in with complaints of difficulty with ambula tion. She has history of osteoarthritis of her left knee, status post synovial fluid aspiration with elevated white blood cells. She also has a history of carotid stenosis and chronic obstructive pulm onary disease. PLAN: Continue to trend LFTs. We will plan for ERCP for further evaluation. The patient has a larg e hiatal hernia with paraesophageal complement. There may be difficulty with the procedure for ERCP on advancing the scope. We will attempt. The patient is on Plavix, which spoke to Dr. Mack and we will hold this. Discussed with the patient as well. The patient is also constipated. We will star t her on MiraLax daily. The Plavix is on hold now. Can continue the aspirin. Continue PPI and the Actigall and monitor her liver enzymes. The patient was seen and case discussed with Dr. Smith. Elva MCNAIR cc: [id number] TT: 12/23/2016 11:25:09 Confirmation # [id number] Dictation # [id number] en
--- NOTE | 2016-12-23 21:00 | CP.PCM.PN ---
Subjective - Date & Time of Evaluation Date of Evaluation: 12/23/16 Time of Evaluation: 11:45 - Subjective Subjective: Comfortable, less pain in the left knee, afebrile. Objective - Vital Signs/Intake and Output Vital Signs (last 24 hours): Temp Pulse Resp BP Pulse Ox 98 F 70 18 130/70 97 12/23/16 16:00 12/23/16 16:00 12/23/16 16:00 12/23/16 16:00 12/23/16 16:00 Intake and Output: 12/23/16 12/24/16 18:59 06:59 Intake Total 540 Balance 540 - Medications Medications: Current Medications Aspirin (Aspirin Chewable) 81 mg PO DAILY [facility] Last Admin: 12/23/16 09:31 Dose: Not Given Atenolol (Tenormin) 25 mg PO DAILY [facility] Last Admin: 12/23/16 09:30 Dose: 25 mg Clopidogrel Bisulfate (Plavix) 75 mg PO DAILY [facility] Last Admin: 12/23/16 09:31 Dose: Not Given Latanoprost (Xalatan Opht) 0 ml OU HS [facility] Last Admin: 12/22/16 21:18 Dose: 2.5 ml Levothyroxine Sodium (Synthroid) 75 mcg PO DAILY [facility] Last Admin: 12/23/16 09:30 Dose: 75 mcg Pantoprazole Sodium (Protonix Ec Tab) 40 mg PO 0630 [facility] Last Admin: 12/23/16 05:48 Dose: 40 mg Polyethylene Glycol (Miralax) 17 gm PO DAILY [facility] Last Admin: 12/23/16 10:24 Dose: 17 gm Ursodiol (Actigall) 300 mg PO BID [facility] Last Admin: 12/23/16 17:06 Dose: 300 mg - Labs Labs: 12/23/16 06:45 12/23/16 06:45 PT 10.6 Seconds (9.9-11.8) 12/20/16 13:00 INR 0.98 (0.93-1.08) 12/20/16 13:00 APTT 31.0 Seconds (23.7-30.8) H 12/20/16 13:00 - Constitutional Appears: Non-toxic, No Acute Distress - ENT Exam ENT Exam: Mucous Membranes Moist - Neck Exam Neck Exam: absent: Lymphadenopathy, Meningismus - Respiratory Exam Respiratory Exam: Decreased Breath Sounds - Cardiovascular Exam Cardiovascular Exam: +S1, +S2 - GI/Abdominal Exam GI & Abdominal Exam: Soft. absent: Tenderness Assessment and Plan - Assessment and Plan (Free Text) Plan: Assessment Left knee swelling, likely pseudogout S/P arthrocentesis POD #3 dyslipidemia carotid artery stenosis COPD HTN glaucoma cataracts hiatal hernia right breast cyst Plan we have discontinued Vancomycin and Rocephin Will continue to monitor clinically
[2016-12-23] MEDS: Latanoprost 2.5 ml Opht Soln OU SCH (21:26)
[2016-12-24] MEDS: Pantoprazole 40 mg EC Tab PO SCH (06:21)
[2016-12-24 07:47] LABS: ADD MANUAL DIFF? NO
[2016-12-24 08:05] LABS: ALB/GLOB RATIO 1.3 (1.1-1.8); ALKALINE PHOSPHATASE 209 U/L (38-133); ALT/SGPT 194 U/L (7-56); AST/SGOT 49 U/L (15-39); BILIRUBIN,DIRECT 0.4 mg/dL (0.0-0.4); BILIRUBIN,TOTAL 0.9 mg/dL (0.2-1.3); BLOOD UREA NITROGEN 12 mg/dL (7-21); CALCIUM 9.1 mg/dL (8.4-10.5); CARBON DIOXIDE 29 mmol/L (21-33); CHLORIDE 102 mmol/L (98-107); GFR AFRICAN-AMERICAN > 60; GLUCOSE,RANDOM 84 mg/dL (70-110); POTASSIUM 4.1 mmol/L (3.6-5.0); SODIUM 139 mmol/L (132-148); TOTAL PROTEIN 6.7 g/dL (5.8-8.3)
[2016-12-24 08:14] LABS: BASO # 0.02 K/mm3 (0.0-2.0); BASO % 0.3 % (0.0-3.0); EOS % 0.6 % (1.5-5.0); GRAN # 4.33 (1.4-6.5); GRAN % 66.2 % (50.0-68.0); HEMATOCRIT 38.8 % (36.0-48.0); LYMPH # 1.6 (1.2-3.4); LYMPH % 24.4 % (22.0-35.0); MEAN CELL VOLUME 92.2 fL (80.0-105.0); MEAN CORPUSCULAR HEMOGLOBIN 30.9 pg (25.0-35.0); MEAN CORPUSCULAR HGB CONC 33.5 g/dl (31.0-37.0); MEAN PLATELET VOLUME 10.1 fl (7.0-11.0); MONO # 0.6 (0.1-0.6); MONO % 8.5 % (1.0-6.0); PLATELET COUNT 288 10^3/uL (120.0-450.0); RED CELL DISTRIBUTION WIDTH 13.6 % (11.5-14.5); WHITE BLOOD COUNT 6.6 10^3/ul (4.5-11.0)
--- NOTE | 2016-12-24 08:19 | PN ---
DATE: 12/23/2016 This is an addendum to the G(I progress report dictated by . The patient was seen and evaluated earlier, discussed with Dr. Mack: PHYSICAL EXAMINATION: ABDOMEN: Soft. There is no tenderness. LFTs have been improving. The patient is on clear liquid diet. We will follow up the LFTs in a.m. If the LFTs are showing downward trend, we will restart the Plavix. The patient has been advised to continue Actigall. Large hiatus hernia. Continue PPI. Thank you very much for allowing us to participate in the car of the patient. Abdifatah Smith MD cc: [id number] TT: 12/24/2016 08:18:26 Confirmation # [id number] Dictation # [id number] tn MTDD
[2016-12-24] MEDS: Levothyroxine 75 MCG TAB PO SCH (09:59)
[2016-12-24] MEDS: POLYETHYLENE GLYCOL 3350 17 GM/Dose PACKET PO SCH ×2 (09:59→10:03)
--- NOTE | 2016-12-24 17:26 | CP.PCM.PN ---
<Casey Kay - Last Filed: 12/24/16 17:22> Subjective - Date & Time of Evaluation Date of Evaluation: 12/24/16 Time of Evaluation: 17:22 - Subjective Subjective: Gi for Dr. Smith Pt s&e w attending. SUZANNE. Denies F/C/N/V/D/CP/SOB. Tolerating liquid diet. LFT trending down. Pt has no complaints. Objective - Vital Signs/Intake and Output Vital Signs (last 24 hours): Temp Pulse Resp BP Pulse Ox 97 F L 63 20 118/68 97 12/24/16 17:18 12/24/16 17:18 12/24/16 17:18 12/24/16 17:18 12/24/16 17:18 Intake and Output: 12/24/16 12/24/16 06:59 18:59 Intake Total 840 Balance 840 - Medications Medications: Current Medications Aspirin (Aspirin Chewable) 81 mg PO DAILY [facility] Last Admin: 12/24/16 09:58 Dose: 81 mg Atenolol (Tenormin) 25 mg PO DAILY [facility] Last Admin: 12/24/16 09:59 Dose: 25 mg Clopidogrel Bisulfate (Plavix) 75 mg PO DAILY [facility] Last Admin: 12/23/16 09:31 Dose: Not Given Latanoprost (Xalatan Opht) 0 ml OU HS [facility] Last Admin: 12/23/16 21:26 Dose: 2.5 ml Levothyroxine Sodium (Synthroid) 75 mcg PO DAILY [facility] Last Admin: 12/24/16 09:59 Dose: 75 mcg Pantoprazole Sodium (Protonix Ec Tab) 40 mg PO 0630 [facility] Last Admin: 12/24/16 06:21 Dose: 40 mg Polyethylene Glycol (Miralax) 17 gm PO DAILY [facility] Last Admin: 12/24/16 10:03 Dose: Not Given Ursodiol (Actigall) 300 mg PO BID [facility] Last Admin: 12/24/16 09:59 Dose: 300 mg - Labs Labs: 12/24/16 07:45 12/24/16 07:45 PT 10.6 Seconds (9.9-11.8) 12/20/16 13:00 INR 0.98 (0.93-1.08) 12/20/16 13:00 APTT 31.0 Seconds (23.7-30.8) H 12/20/16 13:00 - Constitutional Appears: No Acute Distress - Head Exam Head Exam: ATRAUMATIC, NORMAL INSPECTION, NORMOCEPHALIC - Eye Exam Eye Exam: EOMI, Normal appearance, PERRL Pupil Exam: NORMAL ACCOMODATION, PERRL - ENT Exam ENT Exam: Mucous Membranes Moist, Normal Exam - Neck Exam Neck Exam: Full ROM, Normal Inspection. absent: Lymphadenopathy - Respiratory Exam Respiratory Exam: Clear to Ausculation Bilateral, NORMAL BREATHING PATTERN - Cardiovascular Exam Cardiovascular Exam: REGULAR RHYTHM, +S1, +S2. absent: Murmur - GI/Abdominal Exam GI & Abdominal Exam: Soft, Normal Bowel Sounds. absent: Distended, Firm, Tenderness - Extremities Exam Extremities Exam: Full ROM, Normal Capillary Refill, Normal Inspection. absent : Joint Swelling, Pedal Edema - Back Exam Back Exam: NORMAL INSPECTION - Neurological Exam Neurological Exam: Alert, Awake, CN II-XII Intact, Normal Gait, Oriented x3 - Psychiatric Exam Psychiatric exam: Normal Affect, Normal Mood - Skin Skin Exam: Dry, Intact, Normal Color, Warm Assessment and Plan - Assessment and Plan (Free Text) Assessment: 86 F w pmh of paraesophageal hernia admitted for knee effusion found to have elevated LFT Transaminitis: trending down T-bili WNL -Advance diet to pureed diet -Continue PPI -Medical management -Restart anticoagulation DW Dr. Smith <Abdifatah Smith V - Last Filed: 12/25/16 12:51> Objective - Vital Signs/Intake and Output Vital Signs (last 24 hours): Temp Pulse Resp BP Pulse Ox 97 F L 63 20 118/68 97 12/24/16 17:18 12/24/16 17:18 12/24/16 17:18 12/24/16 17:18 12/24/16 17:18 Intake and Output: 12/24/16 12/25/16 18:59 06:59 Intake Total 840 Balance 840 - Medications Medications: Current Medications Aspirin (Aspirin Chewable) 81 mg PO DAILY [facility] Last Admin: 12/24/16 09:58 Dose: 81 mg Atenolol (Tenormin) 25 mg PO DAILY [facility] Last Admin: 12/24/16 09:59 Dose: 25 mg Clopidogrel Bisulfate (Plavix) 75 mg PO DAILY [facility] Last Admin: 12/23/16 09:31 Dose: Not Given Latanoprost (Xalatan Opht) 0 ml OU HS [facility] Last Admin: 12/24/16 21:32 Dose: 2.5 ml Levothyroxine Sodium (Synthroid) 75 mcg PO DAILY [facility] Last Admin: 12/24/16 09:59 Dose: 75 mcg Pantoprazole Sodium (Protonix Ec Tab) 40 mg PO 0630 [facility] Last Admin: 12/24/16 06:21 Dose: 40 mg Polyethylene Glycol (Miralax) 17 gm PO DAILY [facility] Last Admin: 12/24/16 10:03 Dose: Not Given Ursodiol (Actigall) 300 mg PO BID [facility] Last Admin: 12/24/16 19:46 Dose: 300 mg - Labs Labs: 12/24/16 07:45 12/24/16 07:45 PT 10.6 Seconds (9.9-11.8) 12/20/16 13:00 INR 0.98 (0.93-1.08) 12/20/16 13:00 APTT 31.0 Seconds (23.7-30.8) H 12/20/16 13:00 Assessment and Plan - Assessment and Plan (Free Text) Plan: Dr. Smith The patient was seen and examined at bedside. Medical records, lab studies, imagings were reviewed. Last 24 hours events reviewed. Agreed with the above findings and treatment plan as outlined Hiren's notes in the with the addition of the following LFTs showing improving We will resume Plavix advance diet to puree diet
[2016-12-24] MEDS: Latanoprost 2.5 ml Opht Soln OU SCH (21:32)
[2016-12-25] MEDS: Pantoprazole 40 mg EC Tab PO SCH (05:33)
[2016-12-25] MEDS: POLYETHYLENE GLYCOL 3350 17 GM/Dose PACKET PO SCH (10:48)
[2016-12-25] MEDS: Levothyroxine 75 MCG TAB PO SCH (10:48)
--- NOTE | 2016-12-25 17:07 | PN ---
DATE: 12/25/2016 This patient was seen and evaluated earlier today. The patient is now tolerating the pureed diet. S he is back on Plavix. PHYSICAL EXAMINATION: VITAL SIGNS: Temperature is 98.5, pulse 84, blood pressure is 124/85. HEENT: Atraumatic, anicteric. NECK: Supple. HEART: S1, S2 heard. LUNGS: Bilateral air entry present. ABDOMEN: Soft. There is no tenderness. EXTREMITIES: No edema, no cyanosis. LABORATORY DATA: No recent labs today, but yesterday's the labs continued to improve. IMPRESSION: The 86-year-old patient. Followup of the LFTs. Continue the Actigall. The patient donovan s have a large hiatus hernia, paraesophageal type, with narrowing. Did discuss with the patient at [facility] and she would benefit from the long-term pureed diet. Thank you very much for allowing us to participate in the care of the patient. Abdifatah Smith MD cc: [id number] TT: 12/25/2016 17:06:00 Confirmation # [id number] Dictation # [id number] en
--- NOTE | 2016-12-25 19:43 | CP.PCM.PN ---
Subjective - Date & Time of Evaluation Date of Evaluation: 12/25/16 Time of Evaluation: 08:40 - Subjective Subjective: Comfortable, less pain in the left knee, afebrile. Objective - Vital Signs/Intake and Output Vital Signs (last 24 hours): Temp Pulse Resp BP Pulse Ox 97.4 F L 70 20 126/63 98 12/25/16 16:40 12/25/16 16:40 12/25/16 16:40 12/25/16 16:40 12/25/16 16:40 Intake and Output: 12/25/16 12/26/16 18:59 06:59 Intake Total 480 Balance 480 - Medications Medications: Current Medications Acetaminophen (Tylenol 325mg Tab) 650 mg PO Q6H PRN PRN Reason: Arthritis Last Admin: 12/25/16 10:54 Dose: 650 mg Aspirin (Aspirin Chewable) 81 mg PO DAILY [facility] Last Admin: 12/25/16 10:49 Dose: 81 mg Atenolol (Tenormin) 25 mg PO DAILY [facility] Last Admin: 12/25/16 10:54 Dose: 25 mg Clopidogrel Bisulfate (Plavix) 75 mg PO DAILY [facility] Last Admin: 12/25/16 10:48 Dose: 75 mg Latanoprost (Xalatan Opht) 0 ml OU HS [facility] Last Admin: 12/24/16 21:32 Dose: 2.5 ml Levothyroxine Sodium (Synthroid) 75 mcg PO DAILY [facility] Last Admin: 12/25/16 10:48 Dose: 75 mcg Pantoprazole Sodium (Protonix Ec Tab) 40 mg PO 0630 [facility] Last Admin: 12/25/16 05:33 Dose: 40 mg Polyethylene Glycol (Miralax) 17 gm PO DAILY [facility] Last Admin: 12/25/16 10:48 Dose: 17 gm Ursodiol (Actigall) 300 mg PO BID [facility] Last Admin: 12/25/16 18:49 Dose: 300 mg - Labs Labs: 12/24/16 07:45 12/24/16 07:45 PT 10.6 Seconds (9.9-11.8) 12/20/16 13:00 INR 0.98 (0.93-1.08) 12/20/16 13:00 APTT 31.0 Seconds (23.7-30.8) H 12/20/16 13:00 - Constitutional Appears: Non-toxic, No Acute Distress - Head Exam Head Exam: NORMAL INSPECTION - ENT Exam ENT Exam: Mucous Membranes Moist - Neck Exam Neck Exam: absent: Lymphadenopathy, Meningismus - Respiratory Exam Respiratory Exam: Decreased Breath Sounds - Cardiovascular Exam Cardiovascular Exam: +S1, +S2 - GI/Abdominal Exam GI & Abdominal Exam: Soft. absent: Tenderness - Extremities Exam Additional comments: left knee with decreased swelling Assessment and Plan - Assessment and Plan (Free Text) Plan: Assessment Left knee swelling, likely pseudogout S/P arthrocentesis POD #4 dyslipidemia carotid artery stenosis COPD HTN glaucoma cataracts hiatal hernia right breast cyst Plan continue to monitor off antibiotics since she is at risk for nosocomial infections Discussed with Dr. Mack
[2016-12-25] MEDS: Latanoprost 2.5 ml Opht Soln OU SCH (21:19)
[2016-12-26] MEDS: Pantoprazole 40 mg EC Tab PO SCH (05:33)
[2016-12-26] MEDS: Levothyroxine 75 MCG TAB PO SCH (09:01)
[2016-12-26 09:02] LABS: ALB/GLOB RATIO 1.2 (1.1-1.8); ALKALINE PHOSPHATASE 168 U/L (38-133); ALT/SGPT 104 U/L (7-56); AST/SGOT 24 U/L (15-39); BILIRUBIN,TOTAL 0.8 mg/dL (0.2-1.3); BLOOD UREA NITROGEN 14 mg/dL (7-21); CARBON DIOXIDE 26 mmol/L (21-33); CHLORIDE 104 mmol/L (98-107); GFR AFRICAN-AMERICAN > 60; GLUCOSE,RANDOM 83 mg/dL (70-110); POTASSIUM 4.4 mmol/L (3.6-5.0); SODIUM 137 mmol/L (132-148); TOTAL PROTEIN 6.4 g/dL (5.8-8.3)
[2016-12-26] MEDS: POLYETHYLENE GLYCOL 3350 17 GM/Dose PACKET PO SCH (09:02)
--- NOTE | 2016-12-26 09:17 | PN ---
DATE: 12/25/2016 It did not go through the system on the first time. PHYSICAL EXAMINATION: VITAL SIGNS: The temp is 97. The blood pressure is 126/63. The pulse is 70. The oxygen saturation on room air is 98%. GENERAL: The patient is alert and oriented x 3. NECK: Supple. LUNGS: Show diminished breath sounds at the bases. HEART: Regular S1, S2 rhythm with a grade II/ systolic murmur. ABDOMEN: Soft with positive bowel sounds. EXTREMITIES: The left knee has diminished swelling, although it does give the patient some pain. MEDICATIONS: Currently, the patient is on Actigall 300 mg b.i.d., Ecotrin 81 mg daily, MiraLax 17 gr ams daily, Plavix 75 mg daily, Protonix 40 mg daily, Synthroid 75 mcg daily, Tenormin 25 mg daily, Ty lenol 2 tabs q. 6 hours p.r.n. arthritis, and Xalatan eyedrops. She is off of antibiotics. She is awaiting working with rehab with the recommendation for TCU for oc cupational and physical therapy. GI has seen the patient, and her liver function tests are improving . Repeat labs are currently pending. She is being followed by GI. She had an effusion of the left knee treated by Dr. Pope with picture of pseudo gout, and she has severe arthritis in that knee and is having difficulty ambulating, and that is why there is a re commendation by physical therapy people to have physical therapy, and the recommendation was made for TCU. We are awaiting approval from her insurance company. We will follow up the patient's labs. She has a history of COPD, cholecystectomy, remote biliary pritesh nt, which has been removed, degenerative arthritis, arteriosclerotic heart disease, carotid disease, vitamin B12 deficiency. Elva Mack MD cc: [id number] TT: 12/26/2016 09:16:57 Confirmation # [id number] Dictation # [id number] jn
--- NOTE | 2016-12-26 12:07 | PN ---
DATE: 12/26/2016 Seen and examined at the bedside this morning. The patient complains of upper and midabdominal tightness. No nausea or vomiting. She had pureed diet this morning. Denies any shortness of breath or chest pain. VITAL SIGNS: Temperature is 98.1, blood pressure 128/71, pulse 82, respirations 20, 100 on room air. LABORATORY DATA: Today CMP: Sodium 137, K 4.4, her BUN is 14, creatinine is 0.7. Total bilirubin is 0.8, the AST is 24, ALT 104, alk phos is 168. Her liver enzymes continue to improve. PHYSICAL EXAMINATION: HEENT: Sclerae are anicteric. NECK: Supple. CARDIAC: S1 and S2. LUNGS: With decreased breath sounds with good air entry. No rales or wheeze. ABDOMEN: With bowel sounds. Soft. Has some mid/upper abdominal tenderness. No rebound or guarding. EXTREMITIES: No edema. NEUROLOGIC: Awake, alert and oriented. ASSESSMENT/PLAN: An 86-year-old female with large hiatal hernia, periesophageal type, and narrowing, and some upper chest discomfort. The patient did have ultrasound. Noted to have dilated common duct with patient history of cholecystectomy. Liver enzymes were noted to be elevated as well, which have improved. The patient is moving her bowels. She did have a bowel movement yesterday. No diarrhea. Continue to trend LFTs. Continue the Actigall. The patient has history of ascending cholangitis with ERCP and biliary stent in the past. She has history of carotid stenosis. Will continue PPI. She is on Protonix 40 in the morning and we will add Pepcid 20 mg in the evening starting today. If patient continues to have this chest discomfort, we will consider endoscopy. The patient's Plavix has been resumed. Can consider diagnostic, but if also continues, consider cardiac evaluation. The patient is on MiraLax as well and will change the diet right now to clear liquids. The patient was seen and case discussed with Dr. Smith. Elva Anya TABBY cc: [id number] TT: 12/26/2016 11:39:12 Confirmation # [id number] Dictation # [id number] mn TOBIN
--- NOTE | 2016-12-26 18:04 | PN ---
DATE: 12/26/2016 This is an 86-year-old female resting comfortably in bed this morning. Nursing staff relates that th ere were no problems during the day or night. PHYSICAL EXAMINATION: VITAL SIGNS: Temperature is 98, blood pressure is 126/71, oxygen saturation 98% on room air. GENERAL: The patient is alert and oriented x 3. LUNGS: Show diminished breath sounds. HEART: S1, S2 rhythm. ABDOMEN: Soft with positive bowel sounds. EXTREMITIES: Show no evidence of edema. The left knee is still a little sore. LABORATORY DATA: Her chemistries show sodium 137, potassium 4.4, chloride 104. BUN 14, creatinine o f 0.7. AST is now normal at 24, ALT is 104, alkaline phosphatase is 168. ASSESSMENT AND PLAN: The patient was treated for acute pseudogout of the left knee. She is on Actig all with a history of cholecystectomy and biliary stent disease. Her elevated LFTs, which are now im proving were felt to be secondary to possibly some gallstone passage or biliary sludge. She continue s on her cardiac medications of aspirin, Plavix and atenolol. She is on Xalatan eye drops. She is o n Tenormin 25 mg daily. She is on Synthroid replacement therapy at 75 mcg daily, and Protonix 40 mg daily. It has been recommended by physical therapy that the patient go to TCU. We are awaiting acce ptance on the TCU through her insurance. She continues to feel a bit better each day. She is follow ed by GI for her LFTs and infectious disease. We will continue current level of care, awaiting appro denise by her insurance company for her rehab as recommended by physical therapy. Elva Mack MD cc: [id number] TT: 12/26/2016 18:03:12 Confirmation # [id number] Dictation # [id number] mn
--- NOTE | 2016-12-26 18:48 | CP.PCM.PN ---
Subjective - Date & Time of Evaluation Date of Evaluation: 12/26/16 Time of Evaluation: 12:15 - Subjective Subjective: Comfortable, afebrile, not in distress. Objective - Vital Signs/Intake and Output Vital Signs (last 24 hours): Temp Pulse Resp BP Pulse Ox 98.6 F 69 20 116/76 98 12/26/16 16:00 12/26/16 16:00 12/26/16 16:00 12/26/16 16:00 12/26/16 16:00 Intake and Output: 12/26/16 12/26/16 06:59 18:59 Intake Total 120 Balance 120 - Medications Medications: Current Medications Acetaminophen (Tylenol 325mg Tab) 650 mg PO Q6H PRN PRN Reason: Arthritis Last Admin: 12/25/16 10:54 Dose: 650 mg Aspirin (Aspirin Chewable) 81 mg PO DAILY [facility] Last Admin: 12/26/16 09:01 Dose: 81 mg Atenolol (Tenormin) 25 mg PO DAILY [facility] Last Admin: 12/26/16 09:01 Dose: 25 mg Clopidogrel Bisulfate (Plavix) 75 mg PO DAILY [facility] Last Admin: 12/26/16 09:02 Dose: 75 mg Famotidine (Pepcid) 20 mg PO HS [facility] Latanoprost (Xalatan Opht) 0 ml OU HS [facility] Last Admin: 12/25/16 21:19 Dose: 2.5 ml Levothyroxine Sodium (Synthroid) 75 mcg PO DAILY [facility] Last Admin: 12/26/16 09:01 Dose: 75 mcg Pantoprazole Sodium (Protonix Ec Tab) 40 mg PO 0630 [facility] Last Admin: 12/26/16 05:33 Dose: 40 mg Polyethylene Glycol (Miralax) 17 gm PO DAILY [facility] Last Admin: 12/26/16 09:02 Dose: 17 gm Ursodiol (Actigall) 300 mg PO BID [facility] Last Admin: 12/26/16 17:14 Dose: 300 mg - Labs Labs: 12/24/16 07:45 12/26/16 07:00 PT 10.6 Seconds (9.9-11.8) 12/20/16 13:00 INR 0.98 (0.93-1.08) 12/20/16 13:00 APTT 31.0 Seconds (23.7-30.8) H 12/20/16 13:00 - Constitutional Appears: Non-toxic, No Acute Distress - Head Exam Head Exam: NORMAL INSPECTION - Respiratory Exam Respiratory Exam: Decreased Breath Sounds - Cardiovascular Exam Cardiovascular Exam: +S1, +S2 - GI/Abdominal Exam GI & Abdominal Exam: Soft. absent: Tenderness Assessment and Plan - Assessment and Plan (Free Text) Plan: Assessment Left knee swelling, likely pseudogout S/P arthrocentesis POD #6 dyslipidemia carotid artery stenosis COPD HTN glaucoma cataracts hiatal hernia right breast cyst Plan continue to monitor off antibiotics since she is at risk for healthcare- associated infections
[2016-12-26] MEDS: Latanoprost 2.5 ml Opht Soln OU SCH (23:25)
--- NOTE | 2016-12-27 00:42 | PN ---
DATE: 12/26/2016 ADDENDUM: This is an addendum to the GI progress report dictated by Elva Joyner APN. SUBJECTIVE: The patient is now tolerating the pureed diet. Some complaints of lower abdomen and epi gastric pain across in the upper abdomen area, especially after eating food and she is finding it dif ficult. PHYSICAL EXAMINATION: ABDOMEN: Soft. Bowel sounds present. LABORATORY DATA: The patient also on Actigall. The LFTs continue showing improvement. Thank you very much for allowing us to participate in the care of the patient. Abdifatah Smith MD cc: [id number] TT: 12/27/2016 00:41:42 Confirmation # [id number] Dictation # [id number] mn
[2016-12-27] MEDS: Pantoprazole 40 mg EC Tab PO SCH (05:48)
[2016-12-27 08:13] VITALS: BP 124/63; PULSE 81; RESP 18; TEMP 98.8; O2SAT 95
--- NOTE | 2016-12-27 10:08 | PN ---
DATE: 12/27/2016 This is an 86-year-old female resting comfortably this morning. The nursing staff relates that there were no particular problems during the night. PHYSICAL EXAMINATION: VITAL SIGNS: Temp is 98.8, blood pressure is 124/63, oxygen saturation is 95% on room air. GENERAL: She is alert and oriented x 3. LUNGS: Show diminished breath sounds at the bases. HEART: Has an S1, S2 rhythm. ABDOMEN: Soft with positive bowel sounds. EXTREMITIES: No evidence of edema. There is soreness over the left knee and she has difficulty ambu lating. She is working with physical therapy at this time. She has completed a course of antibiotics and was treated for pseudogout of the knee. She is awaiting acceptance to the transitional care unit and proval by her insurance company. CURRENT MEDICATIONS: She currently is on Actigall 300 mg b.i.d., Ecotrin 81 mg daily, MiraLax 17 gra ms daily, Pepcid 20 mg at bedtime, Plavix 75 mg daily, Protonix 40 mg daily, Synthroid 75 mcg daily, atenolol 25 mg daily, Tylenol 2 tabs q. 6 hours p.r.n. for pain, and Xalatan eyedrops at bedtime. We will continue current level of care. She is working with physical therapy. Elva Mack MD cc: [id number] TT: 12/27/2016 10:07:07 Confirmation # [id number] Dictation # [id number] bina
[2016-12-27] MEDS: Levothyroxine 75 MCG TAB PO SCH (10:52)
[2016-12-27] MEDS: POLYETHYLENE GLYCOL 3350 17 GM/Dose PACKET PO SCH (10:54)
--- NOTE | 2016-12-27 12:41 | PN ---
DATE: 12/27/2016 Seen and examined at the bedside late this morning. The patient still gets the tightness around her upper abdomen, but no nausea or vomiting. Tolerating the clear liquids. The patient had a bowel movement; it was slightly loose but no melena or bright red blood per rectum. VITAL SIGNS: Temperature is 98.8, blood pressure is 124/63, pulse 81, respirations 18, 95 on room air. LABORATORY DATA: No new labs are noted for today. PHYSICAL EXAMINATION: HEENT: Sclerae are anicteric. NECK: Supple. CARDIAC: S1, S2. LUNGS: With decreased breath sounds at the bases, but no rales or wheeze. ABDOMEN: With bowel sounds. Soft, nontender. EXTREMITIES: No edema. ASSESSMENT: This is an 86-year-old female with a large hiatal hernia, paraesophageal type, found to have elevated liver enzymes. The patient had abdominal ultrasound and noted to have dilated common duct. She does have a history of ascending cholangitis with ERCP and stent in the past. The patient did have history of a cholecystectomy. She also has a history of osteoarthritis and pain in the left knee, status post synovial fluid aspiration. Other comorbidities are chronic obstructive pulmonary disease and carotid stenosis. PLAN: Will increase her diet this afternoon. She is looking forward to eating. Will do a pureed diet. Continue to trend LFTs, which are getting better. Will order labs for tomorrow. She is on Plavix and aspirin, is on Pepcid and Protonix. Continue MiraLax, but hold for any loose stools, and is on Actigall. The patient was seen and case discussed with Dr. Smith. Elva Anya TABBY cc: [id number] TT: 12/27/2016 12:40:27 Confirmation # [id number] Dictation # [id number] prashanth RUDD
--- NOTE | 2016-12-27 20:43 | CP.PCM.PN ---
Subjective - Date & Time of Evaluation Date of Evaluation: 12/27/16 Time of Evaluation: 13:20 - Subjective Subjective: Comfortable, not in distress, less pain in the left knee. Objective - Vital Signs/Intake and Output Vital Signs (last 24 hours): Temp Pulse Resp BP Pulse Ox 98.8 F 81 18 124/63 95 12/27/16 06:00 12/27/16 10:53 12/27/16 06:00 12/27/16 10:53 12/27/16 06:00 Intake and Output: 12/27/16 12/28/16 18:59 06:59 Intake Total 480 Balance 480 - Labs Labs: 12/24/16 07:45 12/26/16 07:00 PT 10.6 Seconds (9.9-11.8) 12/20/16 13:00 INR 0.98 (0.93-1.08) 12/20/16 13:00 APTT 31.0 Seconds (23.7-30.8) H 12/20/16 13:00 - Constitutional Appears: Non-toxic, No Acute Distress - Head Exam Head Exam: NORMAL INSPECTION - ENT Exam ENT Exam: Mucous Membranes Moist - Neck Exam Neck Exam: absent: Lymphadenopathy, Meningismus - Respiratory Exam Respiratory Exam: Decreased Breath Sounds - Cardiovascular Exam Cardiovascular Exam: +S1, +S2 - GI/Abdominal Exam GI & Abdominal Exam: Soft. absent: Tenderness Assessment and Plan - Assessment and Plan (Free Text) Plan: Assessment Left knee swelling, likely pseudogout S/P arthrocentesis POD #6 dyslipidemia carotid artery stenosis COPD HTN glaucoma cataracts hiatal hernia right breast cyst Plan continue to monitor off antibiotics since she is at risk for nosocomial infections
--- NOTE | 2016-12-28 02:26 | PN ---
DATE: 12/27/2016 ADDENDUM: This is an addendum to the GI progress report dictated by Elva Joyner NP. SUBJECTIVE: The patient still complains of some discomfort in the lower chest and epigastric area. The patient does have a large hiatus hernia. The patient has been on PPI. IMPRESSION AND PLAN: The likely cause for her pain could be secondary to the large paraesophageal he rnia. Possibility of ulcers has to be also considered. The patient is already on PPI on pureed diet . It may be a reasonable thing to consider an upper gastrointestinal series to further evaluate. Th e patient's transaminases and liver enzymes continue to improve. Will continue the Actigall on a gideon mi-term basis. Thank you very much for allowing us to participate in the care of the patient. Abdifatah Smith MD cc: [id number] TT: 12/28/2016 02:26:04 Confirmation # [id number] Dictation # [id number] mn
== END 2016-12-27 17:53 ==
LOC: ED 11:53 → ERH 16:21 → 3RSO 18:19 → INTOOBSV 12-21 12:31 → OBSVTOIN 12-21 12:31
PROVIDERS: ADMIT Internal Medicine; ATTEND Internal Medicine
DX: M11.262 Other chondrocalcinosis, left knee (principal); J44.9 Chronic obstructive pulmonary disease, unspecified; I65.29 Occlusion and stenosis of unspecified carotid artery; M17.12 Unilateral primary osteoarthritis, left knee; I25.10 Atherosclerotic heart disease of native coronary artery without angina pectoris; I10 Essential (primary) hypertension; E03.9 Hypothyroidism, unspecified; E78.5 Hyperlipidemia, unspecified; G89.29 Other chronic pain; K44.9 Diaphragmatic hernia without obstruction or gangrene; R13.10 Dysphagia, unspecified; E53.8 Deficiency of other specified B group vitamins; K29.70 Gastritis, unspecified, without bleeding; K59.00 Constipation, unspecified; R79.89 Other specified abnormal findings of blood chemistry; H26.9 Unspecified cataract; H40.9 Unspecified glaucoma; Z79.02 Long term (current) use of antithrombotics/antiplatelets; Z90.49 Acquired absence of other specified parts of digestive tract; Z87.891 Personal history of nicotine dependence
CPT/HCPCS: 20610; 36415; 73560; 74176; 76700; 80053; 80074; 82945; 84157; 84560; 85025; 85610; 85651; 85730; 86140; 87040; 87070; 89051; 89060; 96365; 96366; 96367; 96375; 96376; 97116; 97162; 97530; 99285; C9113; G0378; G8978; G8979; J0696; J2270; J2405

== ENCOUNTER 2016-12-27 18:57 | Inpatient (IN) | payer MEDICARE ==
[2016-12-27] MEDS: Latanoprost 2.5 ml Opht Soln OU SCH (21:48)
[2016-12-28] MEDS: Levothyroxine 75 MCG TAB PO SCH (05:39)
[2016-12-28 09:04] LABS: ADD MANUAL DIFF? NO
[2016-12-28 09:08] LABS: BASO # 0.04 K/mm3 (0.0-2.0); BASO % 0.4 % (0.0-3.0); EOS # 0.1 (0.0-0.7); EOS % 1.2 % (1.5-5.0); GRAN # 6.83 (1.4-6.5); HEMATOCRIT 41.6 % (36.0-48.0); LYMPH # 1.7 (1.2-3.4); LYMPH % 18.6 % (22.0-35.0); MEAN CELL VOLUME 92.7 fL (80.0-105.0); MEAN CORPUSCULAR HEMOGLOBIN 31.4 pg (25.0-35.0); MEAN CORPUSCULAR HGB CONC 33.9 g/dl (31.0-37.0); MONO # 0.4 (0.1-0.6); MONO % 4.8 % (1.0-6.0); PLATELET COUNT 305 10^3/uL (120.0-450.0); RED CELL DISTRIBUTION WIDTH 13.6 % (11.5-14.5); WHITE BLOOD COUNT 9.1 10^3/ul (4.5-11.0)
[2016-12-28 09:22] LABS: ALB/GLOB RATIO 1.3 (1.1-1.8); ALKALINE PHOSPHATASE 167 U/L (38-133); ALT/SGPT 69 U/L (7-56); AST/SGOT 24 U/L (15-39); BILIRUBIN,TOTAL 1.1 mg/dL (0.2-1.3); BLOOD UREA NITROGEN 12 mg/dL (7-21); CALCIUM 9.1 mg/dL (8.4-10.5); CARBON DIOXIDE 27 mmol/L (21-33); CHLORIDE 101 mmol/L (95-110); GFR AFRICAN-AMERICAN > 60; GLUCOSE,RANDOM 119 mg/dL (70-110); POTASSIUM 4.1 mmol/L (3.6-5.0); SODIUM 135 mmol/L (132-148); TOTAL PROTEIN 6.9 g/dL (5.8-8.3)
[2016-12-28] MEDS: POLYETHYLENE GLYCOL 3350 17 GM/Dose PACKET PO SCH (10:25)
--- NOTE | 2016-12-28 10:50 | PN ---
DATE: 12/28/2016 Seen and examined at the bedside this morning. The patient has same pain, but no acute distress. So far, tolerating the pureed diet. No complaints of shortness of breath or chest pain. VITAL SIGNS: Temperature is 98, blood pressure is 127/64, pulse 69, respirations 18, 97% on room air . LABORATORIES: Today, WBC is 9.1, H and H is 14.1 and 41.6, platelets of 305. Sodium 135, K is 4.1, BUN 12, creatinine 0.8. Total bilirubin is 1.1, AST 24, ALT 69, alk phos is 167. This shows some im provement. PHYSICAL EXAMINATION: HEENT: Sclera is anicteric. NECK: Supple. CARDIAC: S1, S2. LUNG SOUNDS: Clear. ABDOMEN: With bowel sounds, soft. Some epigastric tenderness. No rebound or guarding. ASSESSMENT: Large hiatal hernia, paraesophageal, with elevated liver enzymes, found to have dilated common duct. The patient has history of ascending cholangitis, status post endoscopic retrograde cho langiopancreatogram and stent in the past. She also had a cholecystectomy. LFTs are improving. The patient continues to have this epigastric pain/tightness. Other comorbidities is osteoarthritis, is having pain in the left knee, chronic obstructive pulmonary disease and carotid stenosis. PLAN: Continue the diet. She is on pureed. Continue to trend LFTs as she is on aspirin, Plavix, PP I and on MiraLax and Actigall. The patient may benefit from a gastrointestinal series, which we can plan for tomorrow. Will discuss with Dr. Mack. The patient was seen and case discussed with Dr. Smith. Elva Anya TABBY cc: [id number] TT: 12/28/2016 10:50:31 Confirmation # [id number] Dictation # [id number] en
--- NOTE | 2016-12-28 11:07 | PN ---
DATE: 12/28/2016 An 86-year-old female sitting comfortably in her room. She is on the transitional care unit. VITAL SIGNS: She has a temp of 97.6, her blood pressure is 111/63, her oxygen saturation 97% on room air. The patient has been seen by orthopedics for pseudogout of the left knee. She had been recommended p hysical and occupational therapy by rehab and she has been approved by her insurance company to be on the transitional care unit for therapy. She has a history of a hiatal hernia and is on a dysphagia diet, being followed by GI. She has a history of gallbladder disease with cholecystectomy and histor y of biliary stent which has been removed. She had an elevation of her LFTs, which are now improving . The ALT is 69, the alkaline phosphatase is 167. PHYSICAL EXAMINATION: GENERAL: She is alert and oriented x 3. NECK: Supple. LUNGS: Show rhonchi with diminished breath sounds at the bases. HEART: Has an S1, S2 rhythm. ABDOMEN: Soft with positive bowel sounds. EXTREMITIES: Show no evidence of edema. She has underlying COPD by history and arteriosclerotic hea rt disease. MEDICATIONS: She is currently on Actigall 300 mg twice a day, Ecotrin 81 mg daily, MiraLax 17 grams daily, Pepcid 20 mg daily, Plavix 75 mg daily, Synthroid 75 mcg daily for hypothyroid disease, atenol ol 25 mg daily, Xalatan eye drops daily and Tylenol p.r.n. for mild pain. Will continue the current care. She will be working with occupational and physical therapy and being followed by GI. Elva Mack MD cc: [id number] TT: 12/28/2016 11:06:42 Confirmation # [id number] Dictation # [id number] prashanth
[2016-12-28] MEDS: Latanoprost 2.5 ml Opht Soln OU SCH (21:41)
[2016-12-29] MEDS: Levothyroxine 75 MCG TAB PO SCH (06:11)
[2016-12-29 07:38] LABS: ALB/GLOB RATIO 1.2 (1.1-1.8); BILIRUBIN,DIRECT 0.3 mg/dL (0.0-0.4); BILIRUBIN,TOTAL 0.9 mg/dL (0.2-1.3); TOTAL PROTEIN 5.9 g/dL (5.8-8.3)
--- NOTE | 2016-12-29 10:30 | PN ---
DATE: 12/29/2016 An 86-year-old female on the transitional care unit. Nursing staff relates that there were no partic ular problems during the night or day. PHYSICAL EXAMINATION: VITAL SIGNS: Show a temp of 97.4, her blood pressure is 126/63, respiratory rate is 18, pulse is 61, oxygen sat is 97% on room air. GENERAL: She is alert and oriented x 3. NECK: Supple. LUNGS: Clear. HEART: Has an S1, S2 rhythm. ABDOMEN: Soft with positive bowel sounds. EXTREMITIES: Show no evidence of edema. LABORATORY DATA: Shows that her liver function tests are progressively improving. Her ALT is 60 and her alkaline phosphatase is 141. She is scheduled for an upper GI series today. She has a hiatal hernia and has been complaining abou t some epigastric abdominal discomfort, and GI is referred her for GI studies. She continues at this time on Actigall 300 mg twice a day, Ecotrin 81 mg daily, MiraLax 17 grams daily, Pepcid 20 mg daily , Plavix 75 mg daily, Synthroid 75 mcg daily, atenolol 25 mg daily, Tylenol p.r.n., and Xalatan eyedr ops. She is continuing with occupational and physical therapy. Will continue to monitor the patient closely. She is on a pureed diet because of the hiatal hernia. Elva Mack MD cc: [id number] TT: 12/29/2016 10:30:01 Confirmation # [id number] Dictation # [id number] prashanth
[2016-12-29] MEDS: POLYETHYLENE GLYCOL 3350 17 GM/Dose PACKET PO SCH (10:51)
--- NOTE | 2016-12-29 11:02 | RAD ---
PROCEDURE: Upper GI series HISTORY: large hiatal hernia paraesophageal COMPARISON: TECHNIQUE: Single contrast study. FINDINGS: There is a large hiatal hernia. The entire gastric fundus is seen above the diaphragm. Fundus and distal body of the stomach but no evidence of obstruction. The esophagus is unremarkable. IMPRESSION: Large hiatal hernia
[2016-12-29] MEDS: Latanoprost 2.5 ml Opht Soln OU SCH (22:03)
[2016-12-30] MEDS: Levothyroxine 75 MCG TAB PO SCH (05:31)
[2016-12-30 08:28] LABS: ALB/GLOB RATIO 1.3 (1.1-1.8); BILIRUBIN,DIRECT 0.2 mg/dL (0.0-0.4); BILIRUBIN,TOTAL 0.9 mg/dL (0.2-1.3)
--- NOTE | 2016-12-30 10:05 | PN ---
DATE: 12/30/2016 This is an 86-year-old female on the transitional care unit who currently is receiving physical thera py. She has severe osteoarthritis of the left knee and degenerative changes of the spine with diffic ulty ambulating. She had been evaluated by the physical therapy department at [facility] with a strong recommendation to go to the transitional care unit for physical therapy. She also has a his tory of a hiatal hernia, which was recently seen and visualized on an upper GI series. Diet has been modified by GI to accommodate her difficulty with eating and swallowing. VITAL SIGNS: Her temp is 98.3, her blood pressure is 104/58, her oxygen sat is 96% on room air, her respiratory rate is 18. She also had an elevation of LFTs, which are now clinically improving, possibly attributed to biliary sludge. She is on Actigall for this right now. PHYSICAL EXAMINATION: NECK: Supple. LUNGS: with diminished breath sounds at the bases. HEART: Has an S1, S2 rhythm with a grade II/ systolic murmur. ABDOMEN: Soft with positive bowel sounds. EXTREMITIES: Show no evidence of edema. She will continue on Tylenol p.r.n. for pain, Tenormin 25 mg daily, Synthroid 75 mcg daily, Plavix 75 mg daily, Pepcid 20 mg daily, MiraLax 17 grams daily, Ecotrin 81 mg daily and Actigall 300 mg b.i.d. She is also on Xalatan eyedrops. We will continue current level of care. Elva Mack MD cc: [id number] TT: 12/30/2016 10:04:14 Confirmation # [id number] Dictation # [id number] en
[2016-12-30] MEDS: POLYETHYLENE GLYCOL 3350 17 GM/Dose PACKET PO SCH (11:02)
--- NOTE | 2016-12-30 16:15 | CP.PCM.PN ---
Subjective - Date & Time of Evaluation Date of Evaluation: 12/30/16 Time of Evaluation: 10:25 - Subjective Subjective: Seen and examined, chart reviewed. GI series show large H/H. Still same upper abdominal tightness, no increase in intensity. NO N/V. (+) BM, no bleeding. On Puree, get full fast. Objective - Vital Signs/Intake and Output Vital Signs (last 24 hours): Temp Pulse Resp BP Pulse Ox 97.3 F L 69 18 104/58 L 98 12/30/16 10:00 12/30/16 11:02 12/30/16 10:00 12/30/16 11:02 12/30/16 10:00 - Medications Medications: Current Medications Acetaminophen (Tylenol 325mg Tab) 650 mg PO Q6H PRN; Protocol PRN Reason: Pain, Mild (1-3) Aspirin (Aspirin Chewable) 81 mg PO 0800 ANAY PRN Reason: Protocol Last Admin: 12/30/16 08:34 Dose: 81 mg Atenolol (Tenormin) 25 mg PO DAILY ANAY PRN Reason: Protocol Last Admin: 12/30/16 11:02 Dose: 25 mg Clopidogrel Bisulfate (Plavix) 75 mg PO 0800 ANAY PRN Reason: Protocol Last Admin: 12/30/16 08:35 Dose: 75 mg Famotidine (Pepcid) 20 mg PO 2200 ANAY PRN Reason: Protocol Last Admin: 12/29/16 22:03 Dose: 20 mg Latanoprost (Xalatan Opht) 0 ml OU HS ANAY PRN Reason: Protocol Last Admin: 12/29/16 22:03 Dose: 2.5 ml Levothyroxine Sodium (Synthroid) 75 mcg PO 0630 ANAY PRN Reason: Protocol Last Admin: 12/30/16 05:31 Dose: 75 mcg Polyethylene Glycol (Miralax) 17 gm PO DAILY ANAY PRN Reason: Protocol Last Admin: 12/30/16 11:02 Dose: Not Given Ursodiol (Actigall) 300 mg PO 0800,1800 ANAY PRN Reason: Protocol Last Admin: 12/30/16 08:34 Dose: 300 mg - Labs Labs: 12/28/16 08:45 12/28/16 08:45 - Constitutional Appears: No Acute Distress - Head Exam Head Exam: NORMAL INSPECTION - Eye Exam Eye Exam: Normal appearance. absent: Scleral icterus - ENT Exam ENT Exam: Mucous Membranes Moist - Neck Exam Neck Exam: Normal Inspection - Respiratory Exam Respiratory Exam: Clear to Ausculation Bilateral, NORMAL BREATHING PATTERN. absent: Respiratory Distress - Cardiovascular Exam Cardiovascular Exam: +S1, +S2 - GI/Abdominal Exam GI & Abdominal Exam: Soft, Normal Bowel Sounds. absent: Guarding, Tenderness, Rebound - Extremities Exam Extremities Exam: absent: Calf Tenderness, Pedal Edema - Neurological Exam Neurological Exam: Alert, Awake, Oriented x3 Assessment and Plan - Assessment and Plan (Free Text) Assessment: ASSESSMENT: 86 F w pmh of paraesophageal hernia admitted for knee effusion found to have elevated LFT s/p GI series: confirm large H/H H/O ascending cholangitis/ERCP with stent in the past, H/O cholecystectomy. PLAN: puree diet, small meals Continue PPI on Plavix on Actigall trend lft, improving Discussed with Dr. Smith
[2016-12-30] MEDS: Latanoprost 2.5 ml Opht Soln OU SCH (21:13)
[2016-12-31] MEDS: Levothyroxine 75 MCG TAB PO SCH (05:56)
[2016-12-31] MEDS: POLYETHYLENE GLYCOL 3350 17 GM/Dose PACKET PO SCH (10:12)
--- NOTE | 2016-12-31 11:51 | PN ---
DATE: 12/31/2016 This is an 86-year-old female sitting comfortably, just finished breakfast. She is on the transition al care unit receiving occupational and physical therapy. She states that a small amount of food for breakfast just gives her full sensation and we discussed the fact that she has this large hiatal her catalino which is contributing to this feeling. PHYSICAL EXAMINATION: VITAL SIGNS: Temperature is 97.8, blood pressure is 114/61, oxygen saturation 95% on room air, respi ratory rate is 20. GENERAL: She is alert and oriented x 3. NECK: Supple, no JVD. LUNGS: Show diminished breath sounds at the bases. HEART: S1, S2 rhythm. ABDOMEN: Soft with positive bowel sounds. EXTREMITIES: No evidence of edema. CURRENT MEDICATIONS: Consist of Actigall 300 mg twice a day, Ecotrin 81 mg daily, MiraLax 17 grams d aily, Pepcid 20 mg daily, Plavix 75 mg daily, Synthroid 75 mcg daily, atenolol 25 mg daily and Tyleno l p.r.n. and she is on Xalatan eyedrops. ASSESSMENT: She is receiving occupational and physical therapy with improvement in her gait. The pa in is improved as well, this is secondary to pseudogout of the left knee with effusion. She has a hi story of chronic obstructive pulmonary disease, arteriosclerotic heart disease, carotid disease, a re mote history of cholecystectomy with biliary stent which has been removed, elevation in her LFTs was attributed to possible biliary sludge or gallstone, I have asked dietary to come and speak with the p atient regarding scheduling of meals and the quality of the meal and the consistency of the meal and the portion sizes and scheduling during the course of the day. We will continue with her current [facility] of care and followup her labs. She is being followed by GI. Elva Mack MD cc: [id number] TT: 12/31/2016 10:15:22 Confirmation # [id number] Dictation # [id number] jeb 12/31/2016 10:50:41
[2016-12-31 16:57] VITALS: RESP 18
[2016-12-31] MEDS: Latanoprost 2.5 ml Opht Soln OU SCH (21:23)
[2017-01-01] MEDS: Levothyroxine 75 MCG TAB PO SCH (05:40)
[2017-01-01 07:50] LABS: ADD MANUAL DIFF? NO
[2017-01-01 07:54] LABS: BASO # 0.03 K/mm3 (0.0-2.0); BASO % 0.4 % (0.0-3.0); EOS # 0.1 (0.0-0.7); EOS % 1.3 % (1.5-5.0); GRAN # 4.32 (1.4-6.5); GRAN % 64.7 % (50.0-68.0); HEMATOCRIT 37.8 % (36.0-48.0); LYMPH # 1.6 (1.2-3.4); LYMPH % 24.5 % (22.0-35.0); MEAN CELL VOLUME 91.5 fL (80.0-105.0); MEAN CORPUSCULAR HGB CONC 33.9 g/dl (31.0-37.0); MEAN PLATELET VOLUME 10.4 fl (7.0-11.0); MONO # 0.6 (0.1-0.6); MONO % 9.1 % (1.0-6.0); PLATELET COUNT 280 10^3/uL (120.0-450.0); RED CELL DISTRIBUTION WIDTH 13.5 % (11.5-14.5); WHITE BLOOD COUNT 6.7 10^3/ul (4.5-11.0)
[2017-01-01 08:09] LABS: ALB/GLOB RATIO 1.2 (1.1-1.8); ALKALINE PHOSPHATASE 128 U/L (38-133); ALT/SGPT 41 U/L (7-56); AST/SGOT 22 U/L (15-39); BILIRUBIN,TOTAL 0.9 mg/dL (0.2-1.3); BLOOD UREA NITROGEN 9 mg/dL (7-21); CALCIUM 8.8 mg/dL (8.4-10.5); CARBON DIOXIDE 27 mmol/L (21-33); CHLORIDE 102 mmol/L (98-107); GFR AFRICAN-AMERICAN > 60; GLUCOSE,RANDOM 76 mg/dL (70-110); SODIUM 136 mmol/L (132-148); TOTAL PROTEIN 6.4 g/dL (5.8-8.3)
[2017-01-01 08:17] LABS: POTASSIUM 4.8 mmol/L (3.6-5.0)
[2017-01-01] MEDS: POLYETHYLENE GLYCOL 3350 17 GM/Dose PACKET PO SCH (09:59)
--- NOTE | 2017-01-01 12:21 | PN ---
DATE: 01/01/2017 An 86-year-old female on transitional care unit. The patient is comfortable this morning. She does have some pain in her knee, but she is receiving analgesic for that. PHYSICAL EXAMINATION: GENERAL: She is alert and oriented x 3. VITAL SIGNS: Show a temp of 98.3, her blood pressure is 109/57, her oxygen sat is 97% on room air. LUNGS: Clear, diminished breath sounds at the bases. HEART: Has an S1, S2 rhythm. ABDOMEN: Soft with positive bowel sounds. EXTREMITIES: Show no evidence of edema. LABORATORY DATA: Shows a WBC of 6.7, RBC 4.13, hemoglobin 12.8, hematocrit 37.8, platelet count 280, 000. Chemistry shows normal electrolytes, the BUN is 9, the creatinine is 0.8. Her LFTs are now nor mal. The patient is currently receiving Actigall twice a day 300 mg, Ecotrin 81 mg daily, MiraLax 17 grams daily, Pepcid 20 mg daily, Plavix 75 mg daily, Synthroid 75 mcg daily, Tenormin 25 mg daily, Tylenol 2 tabs p.r.n. q. 6 for mild pain and Xalatan eyedrops. She will continue her current level of care at this time, receiving occupational and physical therapy. She is being followed by GI for her recen t elevation in LFTs and will continue current level of care in a patient with known history of arteri osclerotic heart disease, carotid disease, degenerative arthritis, cholecystectomy, hiatal hernia, ps eudogout, vitamin B12 deficiency. Elva Mack MD cc: [id number] TT: 01/01/2017 12:20:48 Confirmation # [id number] Dictation # [id number] en
--- NOTE | 2017-01-01 16:41 | CP.PCM.PN ---
<Casey Kay - Last Filed: 01/01/17 16:38> Subjective - Date & Time of Evaluation Date of Evaluation: 01/01/17 Time of Evaluation: 16:38 - Subjective Subjective: GI for Dr. Smith Pt s&e w attending. SUZANNE. Pt tolerating diet. +BM. Denies abd pain, F/C/N/V/D/ CP/SOB. +amb. +void Objective - Vital Signs/Intake and Output Vital Signs (last 24 hours): Temp Pulse Resp BP Pulse Ox 98.3 F 79 18 98/62 L 97 01/01/17 05:51 01/01/17 09:59 01/01/17 05:51 01/01/17 09:59 01/01/17 05:51 - Medications Medications: Current Medications Acetaminophen (Tylenol 325mg Tab) 650 mg PO Q6H PRN; Protocol PRN Reason: Pain, Mild (1-3) Last Admin: 01/01/17 00:24 Dose: 650 mg Aspirin (Aspirin Chewable) 81 mg PO 0800 ANAY PRN Reason: Protocol Last Admin: 01/01/17 07:51 Dose: 81 mg Atenolol (Tenormin) 25 mg PO DAILY ANAY PRN Reason: Protocol Last Admin: 01/01/17 09:59 Dose: Not Given Clopidogrel Bisulfate (Plavix) 75 mg PO 0800 ANAY PRN Reason: Protocol Last Admin: 01/01/17 07:51 Dose: 75 mg Famotidine (Pepcid) 20 mg PO 2200 ANAY PRN Reason: Protocol Last Admin: 12/31/16 21:23 Dose: 20 mg Latanoprost (Xalatan Opht) 0 ml OU HS ANAY PRN Reason: Protocol Last Admin: 12/31/16 21:23 Dose: 2.5 ml Levothyroxine Sodium (Synthroid) 75 mcg PO 0630 ANAY PRN Reason: Protocol Last Admin: 01/01/17 05:40 Dose: 75 mcg Polyethylene Glycol (Miralax) 17 gm PO DAILY ANAY PRN Reason: Protocol Last Admin: 01/01/17 09:59 Dose: Not Given Ursodiol (Actigall) 300 mg PO 0800,1800 ANAY PRN Reason: Protocol Last Admin: 01/01/17 07:51 Dose: 300 mg - Labs Labs: 01/01/17 07:47 01/01/17 07:44 - Constitutional Appears: No Acute Distress - Head Exam Head Exam: ATRAUMATIC, NORMAL INSPECTION, NORMOCEPHALIC - Eye Exam Eye Exam: EOMI, Normal appearance, PERRL Pupil Exam: NORMAL ACCOMODATION, PERRL - ENT Exam ENT Exam: Mucous Membranes Moist, Normal Exam - Neck Exam Neck Exam: Full ROM, Normal Inspection. absent: Lymphadenopathy - Respiratory Exam Respiratory Exam: Clear to Ausculation Bilateral, NORMAL BREATHING PATTERN - Cardiovascular Exam Cardiovascular Exam: REGULAR RHYTHM, +S1, +S2. absent: Murmur - GI/Abdominal Exam GI & Abdominal Exam: Soft, Normal Bowel Sounds. absent: Distended, Tenderness - Extremities Exam Extremities Exam: Full ROM, Normal Capillary Refill, Normal Inspection. absent : Joint Swelling, Pedal Edema - Back Exam Back Exam: NORMAL INSPECTION - Neurological Exam Neurological Exam: Alert, Awake, CN II-XII Intact, Normal Gait, Oriented x3 - Psychiatric Exam Psychiatric exam: Normal Affect, Normal Mood - Skin Skin Exam: Dry, Intact, Normal Color, Warm Assessment and Plan - Assessment and Plan (Free Text) Assessment: 86 F w pmh of paraesophageal hernia admitted for knee effusion found to have elevated LFT: trending down s/p GI series: confirm large Hiatal hernia H/O ascending cholangitis/ERCP with stent in the past, H/O cholecystectomy. PLAN: puree diet, small meals Continue PPI on Plavix on Actigall trend lft, improving Discussed with Dr. Smith <Abdifatah Smith V - Last Filed: 02/16/17 21:05> Objective - Vital Signs/Intake and Output Vital Signs (last 24 hours): Temp Pulse Resp BP Pulse Ox 98.3 F 65 18 112/70 96 01/04/17 10:00 01/04/17 10:00 01/04/17 10:00 01/04/17 10:00 01/04/17 10:00 - Labs Labs: 01/01/17 07:47 01/01/17 07:44 Assessment and Plan - Assessment and Plan (Free Text) Assessment: Addendum to the GI Progress note of Dr. Kay. Patient was seen , examined and chart reviewed. Continue with the present management.
[2017-01-01] MEDS: Latanoprost 2.5 ml Opht Soln OU SCH (21:14)
[2017-01-02] MEDS: Levothyroxine 75 MCG TAB PO SCH (05:29)
[2017-01-02] MEDS: POLYETHYLENE GLYCOL 3350 17 GM/Dose PACKET PO SCH (10:04)
--- NOTE | 2017-01-02 12:18 | PN ---
DATE: 01/02/2017 This is an 86-year-old female on the transitional care unit. Nursing staff relates that she is comfo rtable without any particular problems. She is receiving physical and occupational therapy. OBJECTIVE: VITAL SIGNS: This morning show a temp of 98.2. Her blood pressure is 120/63. Oxygen sat is 97% on room air. Respiratory rate is 18. GENERAL: She is alert and oriented x 3. NECK: Supple. No JVD. LUNGS: Show diminished breath sounds at the bases. HEART: Regular S1, S2 rhythm with a grade II/ systolic murmur. ABDOMEN: Soft with positive bowel sounds. EXTREMITIES: Show no evidence of edema. CURRENT MEDICATIONS: Consist of Actigall 300 mg twice a day, Ecotrin 81 mg daily, MiraLax 17 grams d aily, Pepcid 20 mg daily, Plavix 75 mg daily, Synthroid 75 mcg daily, Tenormin 25 mcg daily, Tyleno l p.r.n. for moderate pain, and Xalatan eyedrops. The patient is status post treatment for hepatopathy felt to be secondary to possible biliary sludge, pseudogout with gait disorder, osteoarthritis. She has a history of cholecystectomy, history of [employer] D, history of B12 deficiency, history of hiatal hernia, which is severe with reflux. She is on a mod ified diet, being followed by GI. We will continue current level of care. Elva Mack MD cc: [id number] TT: 01/02/2017 12:17:24 Confirmation # [id number] Dictation # [id number] jeb
[2017-01-02] MEDS: Latanoprost 2.5 ml Opht Soln OU SCH (21:22)
[2017-01-03] MEDS: Levothyroxine 75 MCG TAB PO SCH (05:34)
[2017-01-03] MEDS: POLYETHYLENE GLYCOL 3350 17 GM/Dose PACKET PO SCH (10:42)
--- NOTE | 2017-01-03 11:50 | PN ---
DATE: 01/03/2017 Seen and examined at the bedside in the TCU. No new complaints. Tolerating a pureed diet. She is h aving soft stools. No reports of any overt GI bleed. VITAL SIGNS: Temperature is 98.4, blood pressure 114/73, pulse 99, respirations 18, 95 on room air. No new labs are noted for today. PHYSICAL EXAMINATION: HEENT: Sclerae are anicteric. NECK: Supple. CARDIAC: S1, S2. LUNGS: Clear. ABDOMEN: With bowel sounds, soft, nontender, no rebound, no guarding. EXTREMITIES: No edema. NEUROLOGIC: Awake, alert, and oriented. ASSESSMENT: This is an 86-year-old female with a large hiatal hernia, paraesophageal type. Had a GI series which just showed a large hiatal hernia. The patient has history of cholecystectomy with asc ending cholangitis, had ERCP with stent in the past. Noted to have elevated liver enzymes, likely se condary to biliary sludge. The patient also had pseudogout, history of osteoarthritis and reflux dis ease. PLAN: Continue the pureed diet. Is on Actigall. The liver enzymes are now normal. Continue PPI. She is on aspirin and Plavix. Is also on MiraLax. The patient was seen and case discussed with Dr. Smith. Elva MCNAIR cc: [facility] TT: 01/03/2017 11:49:32 Confirmation # [id number] Dictation # [id number] bina
--- NOTE | 2017-01-03 18:26 | PN ---
DATE: 01/03/2017 This is an 86-year-old female resting comfortably this morning on the transitional care unit. The pa nestor is receiving occupational and physical therapy. She has got severe osteoarthritis with gait di sorder and pseudogout of the left knee with effusion that was drained by orthopedics. She has underl kati gastrointestinal problems and had a large hiatal hernia, history of cholecystectomy, history of hepatopathy secondary to probable biliary sludge, which is improved. She got underlying COPD, vitami n B12 deficiency, atherosclerotic heart disease, carotid disease, glaucoma and hypothyroid disease. The nurses state that there were no problems during the night. ACTIVE MEDICATIONS: Consist of Actigall 300 mg twice a day, Ecotrin 81 mg daily, MiraLax 17 grams da prince, Pepcid 20 mg daily, Plavix 75 mg daily, Synthroid 75 mcg daily, Tenormin 25 mg daily, Tylenol 2 tabs q.6 hours p.r.n. for mild pain and Xalatan eyedrops OBJECTIVE: VITAL SIGNS: This morning temp is 97.5, her pulse is 68, blood pressure is 111/65, saturation is 98% on room air. GENERAL: She is alert and oriented x 3. LUNGS: Show diminished breath sounds at the bases. HEART: S1, S2 rhythm. ABDOMEN: Soft, scaphoid, positive bowel sounds. EXTREMITIES: Show no evidence of edema. NEUROLOGIC: She is alert and oriented x 3. ASSESSMENT AND PLAN: The patient will be continued on this current regimen. We will await follow up with orthopedics regarding her left knee. She continues to be followed by GI and will continue curr ent level of care. Elva Mack MD cc: [id number] TT: 01/03/2017 18:26:12 Confirmation # [id number] Dictation # [id number] caryl
[2017-01-03] MEDS: Latanoprost 2.5 ml Opht Soln OU SCH (21:14)
[2017-01-04] MEDS: Levothyroxine 75 MCG TAB PO SCH (06:10)
[2017-01-04] MEDS: POLYETHYLENE GLYCOL 3350 17 GM/Dose PACKET PO SCH (09:45)
[2017-01-04 11:17] VITALS: BP 112/70; PULSE 65; TEMP 98.3; O2SAT 96
--- NOTE | 2017-01-05 08:04 | CON ---
DATE: 01/04/2017 An 86-year-old female with bilateral knee pain, left worse than the right. Presently, has no effusio n in the knee, but has periodic and episodic pain in the left knee with occasional use of the knee wi th ambulation. The pain is not constant she admits to and we did have the opportunity to do an arthr ocentesis on 12/21/2016 showing in the fluid that she had some calcium pyrophosphate crystals, for pseudogout or calcium pyrophosphate disease, but she is not a surgical candidate. The pain is no t intractable and not 100% at times and it comes as occasional episodic pain. She could tolerate the discomfort and was helped by Tylenol. I told not to take any anti-inflammatories because she also h as an upset stomach. There is no need for aspiration of the knee today. recurs right kne e with pseudogout. Ellis Pope DO cc: [id number] TT: 01/04/2017 18:23:35 Confirmation # [id number] Dictation # [id number] mn
--- NOTE | 2017-01-19 23:05 | DS ---
An 86-year-old female in [facility] for effusion of the left knee and arthritis with inab ility to walk and carry her weight. Also, with hepatopathy, felt to be secondary to probable biliary sludge. She was seen by orthopedics with removal of the fluid in the knee. MEDICATIONS: She was continued on her medications consisting of Actigall 300 mg twice a day, Ecotrin 81 mg daily, MiraLAX 17 grams daily, Pepcid 20 mg daily, Plavix 75 mg daily, Synthroid 75 mcg daily, Tenormin 25 mg daily, Tylenol 2 tabs q. 6 hours p.r.n., and Xalatan eye drops bilaterally. She will be followed as an outpatient. PHYSICAL EXAMINATION: Her temp was 97.5, her pulse was 65, her blood pressure was 112/70, respirator y rate was 18, oxygen sat was 96%. Elva Mack MD cc: [id number] TT: 01/19/2017 23:04:11 caryl
== END 2017-01-04 15:39 | disposition home or self-care (01) | DRG 554 ==
LOC: TRCU 18:57
PROVIDERS: ADMIT Internal Medicine; ATTEND Internal Medicine
PROC: F07Z9FZ Gait Training/Functional Ambulation Treatment using Assistive, Adaptive, Supportive or Protective Equipment (ICD-10-PCS; principal; 2016-12-28)
PROC: F08Z4FZ Home Management Treatment using Assistive, Adaptive, Supportive or Protective Equipment (ICD-10-PCS; 2016-12-29)
DX: M17.12 Unilateral primary osteoarthritis, left knee (principal); M25.462 Effusion, left knee; J44.9 Chronic obstructive pulmonary disease, unspecified; I65.29 Occlusion and stenosis of unspecified carotid artery; I25.10 Atherosclerotic heart disease of native coronary artery without angina pectoris; E03.9 Hypothyroidism, unspecified; R79.89 Other specified abnormal findings of blood chemistry; E53.8 Deficiency of other specified B group vitamins; K21.9 Gastro-esophageal reflux disease without esophagitis; K44.9 Diaphragmatic hernia without obstruction or gangrene; H40.9 Unspecified glaucoma; Z90.49 Acquired absence of other specified parts of digestive tract

== ENCOUNTER 2017-01-28 17:29 | Observation (INO) | payer MEDICARE ==
[2017-01-28] MEDS ORDERED: Sodium Chloride 0.9% 500 ML IV STA (18:27)
--- NOTE | 2017-01-28 19:08 | ED PDOC ---
Arrival/HPI - General Chief Complaint: GI Problem Time Seen by Provider: 01/28/17 18:09 Historian: Patient - History of Present Illness Narrative History of Present Illness (Text): 01/28/17 19:10 Patient with past medical history of hypertension and high cholesterol, complains of one day history of lower abdominal pain, associated with constipation. Patient states that she has chronic constipation, normally has bowel movement every 3-4 days, states that she had to have a bowel movement today however feels that her stool is stuck in her rectum and noticed a small amount of blood after wiping. Otherwise: (-) nausea / vomiting, (-) diarrhea, (- ) fever, (-) melena. Has no history of prior abdominal surgery. Of note, patient states that she last urinated this morning and has not been able to urinate since, but has the urge to. PMD [place] Past Medical History - Provider Review Nursing Documentation Reviewed: Yes - Infectious Disease Hx of Infectious Diseases: None - Cardiac Hx Cardiac Disorders: Yes Hx Hypertension: Yes - Pulmonary Hx Respiratory Disorders: Yes Hx Chronic Obstructive Pulmonary Disease (COPD): Yes - Neurological Hx Neurological Disorder: Yes Hx Dizziness: Yes - HEENT Hx HEENT Disorder: Yes (WEARS RX GLASSES, [place]) Hx Cataracts: Yes Hx Glaucoma: Yes - Renal Hx Renal Disorder: No - Endocrine/Metabolic Hx Endocrine Disorders: Yes Hx Hypothyroidism: Yes - Hematological/Oncological Hx Blood Disorders: No - Integumentary Hx Dermatological Disorder: No - Musculoskeletal/Rheumatological Hx Musculoskeletal Disorders: Yes Hx Falls: Yes - Gastrointestinal Hx Gastrointestinal Disorders: Yes (hiatal hernia) - Genitourinary/Gynecological Hx Genitourinary Disorders: Yes Hx Reproductive Disorders: Yes (hx right breast cyst removal) - Psychiatric Hx Psychophysiologic Disorder: No Hx Depression: No Hx Emotional Abuse: No Hx Physical Abuse: No Hx Substance Use: No - Surgical History Hx Appendectomy: Yes Hx Cholecystectomy: Yes Other/Comment: r breast cyst removed - Anesthesia Hx Anesthesia: Yes - Suicidal Assessment Feels Threatened In Home Enviroment: No Family/Social History - Physician Review Nursing Documentation Reviewed: Yes Family/Social History: No Known Family HX Smoking Status: Former Smoker Hx Alcohol Use: No Hx Substance Use: No Hx Substance Use Treatment: No Allergies/Home Meds Allergies/Adverse Reactions: Allergies cortisone Allergy (Verified 01/28/17 17:35) RASH iodine Allergy (Verified 01/28/17 17:35) RASH cortisone Allergy (Uncoded 01/28/17 17:35) SWELLING flu vaccine Allergy (Uncoded 01/28/17 17:35) RASH Home Medications: Home Meds Medication Instructions Recorded Confirmed Bimatoprost [Lumigan] 1 drop OP HS 04/16/12 01/28/17 Levothyroxine Sodium 0.075 mg PO DAILY 04/16/12 01/28/17 Aspirin [Aspirin Chewable] 81 mg PO DAILY 03/09/16 01/28/17 Atenolol [Tenormin] 25 mg PO DAILY 12/20/16 01/28/17 Atorvastatin [Lipitor] 10 mg PO DIN 12/20/16 01/28/17 Clopidogrel [Plavix] 75 mg PO DAILY 12/20/16 01/28/17 Ezetimibe [Zetia] 10 mg PO DAILY 12/20/16 01/28/17 Review of Systems - Review of Systems Constitutional: Normal. absent: Fatigue, Weight Change, Fevers Respiratory: Normal. absent: SOB, Cough, Sputum Cardiovascular: Normal. absent: Chest Pain, Palpitations, Edema Gastrointestinal: Normal, Abdominal Pain (related to constipation), Constipation (chronic constipation). absent: Nausea, Vomiting, Appetite Changes Genitourinary Female: Normal, Urine Output Changes (has not urinated since AM). absent: Dysuria, Frequency, Hematuria Musculoskeletal: Normal, Arthralgias. absent: Back Pain, Neck Pain Skin: Normal. absent: Rash, Pruritis, Skin Lesions Physical Exam Vital Signs Temp Pulse Resp BP Pulse Ox 01/28/17 17:48 97.7 F 95 H 16 121/67 97 Temperature: Afebrile Blood Pressure: Normal Pulse: Regular Respiratory Rate: Normal Appearance: Positive for: Well-Appearing, Non-Toxic, Comfortable Pain Distress: None Mental Status: Positive for: Alert and Oriented X 3 - Systems Exam Head: Present: Atraumatic, Normocephalic Pupils: Present: PERRL Extroacular Muscles: Present: EOMI Mouth: Present: Moist Mucous Membranes Pharnyx: Present: Normal. No: ERYTHEMA, EXUDATE Neck: Present: Normal Range of Motion. No: MIDLINE TENDERNESS, Lymphadenopathy Respiratory/Chest: Present: Clear to Auscultation, Good Air Exchange. No: Respiratory Distress, Accessory Muscle Use, Wheezes, Rales, Rhonchi Cardiovascular: Present: Regular Rate and Rhythm, Normal S1, S2. No: Murmurs Abdomen: Present: Tenderness (mild diffuse abdominal tenderness), Normal Bowel Sounds, Other ((+) palpable bladder). No: Distention, Peritoneal Signs, Rebound , Guarding Rectal: Present: Normal Rectal Tone, Other ((+) soft stool in the rectum, (+) fecal impaction, (+) brown stool, (+) guaic. Stool disimpacted by PA. COUNTERINTELLIGENCE AGENTJAZZMINE Cifuentes was present during the entire exam. ). No: Rectal Tenderness, Gross Blood, Melena, Hemorrhoids Upper Extremity: Present: Normal Inspection, NORMAL PULSES. No: Edema, Tenderness, Swelling Lower Extremity: Present: Normal Inspection, NORMAL PULSES, Normal ROM. No: Edema, Cyanosis, Swelling Neurological: Present: GCS=15, CN II-XII Intact, Speech Normal Skin: Present: Warm, Dry, Normal Color. No: Rashes Psychiatric: Present: Alert, Oriented x 3 Medical Decision Making ED Course and Treatment: 01/28/17 19:04 86 yo F with past medical history of hypertension and high cholesterol, presents with abdominal pain, constipation and urinary retention. On exam, patient has a palpable bladder and is noted to have fecal impaction. Based on history or exam to rule out fecal impaction, lower GI bleed, consider constipation versus obstruction. Plan: -- Labs -- IV fluids -- Urinalysis -- Fleet enema -- AXR -- Gurrola catheter -- Reassess and disposition 01/28/17 20:28 Labs reviewed, and are within normal limits. Gurrola catheter was inserted and yielded 275 mL of yellow urine. Abdominal x-ray : (+) nonspecific bowel gas pattern, (+) constipation, (-) air fluid levels, as read by PA. Considering patient's age, history and (+) guaic on rectal exam, CT A/P ordered. After fleet enema, patient had a small bowel movement. CT results reviewed, (+) stercoral colitis noted. On reevaluation, the patient is laying in bed comfortably and is trying to use the bedpan, she had (+) watery stool at this time. Case d/w Dr. Mack, agrees with plan for inpatient observation and GI consult. Further plan for inpatient obs d/w the patient and she agrees with plan. 01/28/17 22:32 Patient had a large bowel movement on the bedside commode. Dr. Mack and Dr. Smith notified. Request that patient be placed on a liquid diet and miralax po q8h. - Lab Interpretations Lab Results: 01/28/17 19:00 01/28/17 19:00 Lab Results 01/28/17 19:20: Urine Color Yellow, Urine Appearance Clear, Urine pH 6.0, Ur Specific [place] 1.020, Urine Protein Trace H, Urine Glucose (UA) Negative, Urine Ketones Trace H, Urine Blood Negative, Urine Nitrate Negative, Urine Bilirubin Negative, Urine Urobilinogen 0.2, Ur Leukocyte Esterase Negative, Urine RBC Negative, Urine WBC 0 - 2, Ur Epithelial Cells 0 - 2, Urine Bacteria Mod 01/28/17 19:00: Sodium 137, Potassium 4.7, Chloride 101, Carbon Dioxide 27, Anion Gap 14, BUN 12, Creatinine 0.8, Est GFR ( Amer) > 60, Est GFR (Non- Af Amer) > 60, Random Glucose 102, Calcium 9.8, Total Bilirubin 0.8, AST 28, ALT 23, Alkaline Phosphatase 124, Total Protein 7.3, Albumin 4.1, Globulin 3.2, Albumin/Globulin Ratio 1.3, Lipase 202 01/28/17 19:00: PT 11.0, INR 1.02, APTT 27.5 01/28/17 19:00: WBC 10.7 D, RBC 4.43, Hgb 13.8, Hct 41.0, MCV 92.6, MCH 31.2, MCHC 33.7, RDW 13.4, Plt Count 263, MPV 10.3, Gran % 85.2 H, Lymph % (Auto) 9.9 L, [place] % (Auto) 4.4, Eos % (Auto) 0.3 L, Baso % (Auto) 0.2, Gran # 9.14 H, Lymph # 1.1 L, [place] # 0.5, Eos # 0.0, Baso # 0.02 I have reviewed the lab results: Yes Interpretation: All labs normal - RAD Interpretation Narrative RAD Interpretations (Text): 01/28/17 21:30 CT A/P w/o contrast: FINDINGS: Lower thorax: Mild atelectasis/scarring with associated mild bronchiectasis. Moderate-sized hiatal hernia. ABDOMEN: Liver: Unremarkable. Gallbladder and bile ducts: Cholecystectomy. Mild prominence of common bile duct. Minimal air within biliary tree. Pancreas: Unremarkable. No ductal dilation. Spleen: No splenomegaly. Adrenals: Mild hypertrophy of adrenal glands. Kidneys and ureters: Small exophytic lesion within LEFT kidney, grossly stable. Subcentimeter hyperdense lesion within LEFT kidney, unchanged. Faint punctate calculus/calcification within RIGHT kidney. No hydronephrosis. Stomach and bowel: Fluid/loose stool within colon. Moderate to large amount of stool within rectum. Few scattered colonic diverticula. Mild mural thickening of rectum. Mild stranding within adjacent fat. Few scattered diverticula within colon. No obstruction. Appendix: No findings to suggest appendicitis. PELVIS: Bladder: Gurrola catheter. Partial distention of bladder. No stones. Reproductive: Unremarkable as visualized. ABDOMEN and PELVIS: Intraperitoneal space: No significant fluid collection. No free air. Bones/joints: Degenerative changes of spine. No acute fracture. Soft tissues: Unremarkable. Vasculature: [id number] atherosclerotic disease. No aneurysm. Lymph nodes: No pathologically enlarged lymph nodes. IMPRESSION: 1. Findings compatible with stercoral colitis. 2. Pneumobilia, possibly related to recent intervention. Correlate with surgical history. 3. Gurrola catheter within partially filled bladder. Correlate for malfunction. 4. Incidental/non-acute findings are described above. Dictated By: Artem Kim MD Dictated Date/Time: 01/28/172107 Signed By: Artem Kim MD Date Signed: 2107 Transcribed By: [facility] Radiology Orders: 01/28/17 18:28 obstructive series [ABD 2 VIEWS (FLAT/UP OR DECUB)] [RAD] Stat 01/28/17 19:55 ABDOMEN & PELVIS [ABD & PELVIS W/O PO OR IV CONT] [CT] Stat - Medication Orders Current Medication Orders: Polyethylene Glycol (Miralax) 17 gm PO Q8H ANAY Stop: 01/29/17 23:59 Discontinued Medications Sodium Chloride (Sodium Chloride 0.9%) 500 mls @ 1,000 mls/hr IV .Q30M STA Stop: 01/28/17 18:56 Last Admin: 01/28/17 19:04 Dose: 1,000 mls/hr Sodium Phosphate (Fleet Enema) 135 ml RC STAT STA Stop: 01/28/17 18:30 Last Admin: 01/28/17 19:18 Dose: 135 ml - PA / RN ENDOSCOPY / Resident Statement MD/DO has reviewed & agrees with the documentation as recorded. Disposition/Present on Arrival - Present on Arrival Any Indicators Present on Arrival: No History of DVT/PE: No History of Uncontrolled Diabetes: No Urinary Catheter: No History of Decub. Ulcer: No History Surgical Site Infection Following: None - Disposition Have Diagnosis and Disposition been Completed?: Yes Diagnosis: Abdominal pain, Constipation, Fecal impaction of rectum Disposition: HOSPITALIZED Disposition Time: 21:45 Patient Plan: Observation Patient Problems: Current Active Problems Problem Status Onset Abdominal pain Acute Constipation Acute Fecal impaction of rectum Acute Condition: STABLE
[2017-01-28 19:14] LABS: ADD MANUAL DIFF? NO
[2017-01-28 19:22] LABS: BASO # 0.02 K/mm3 (0.0-2.0); BASO % 0.2 % (0.0-3.0); EOS % 0.3 % (1.5-5.0); GRAN # 9.14 (1.4-6.5); GRAN % 85.2 % (50.0-68.0); LYMPH # 1.1 (1.2-3.4); LYMPH % 9.9 % (22.0-35.0); MEAN CELL VOLUME 92.6 fL (80.0-105.0); MEAN CORPUSCULAR HEMOGLOBIN 31.2 pg (25.0-35.0); MEAN CORPUSCULAR HGB CONC 33.7 g/dl (31.0-37.0); MEAN PLATELET VOLUME 10.3 fl (7.0-11.0); MONO # 0.5 (0.1-0.6); MONO % 4.4 % (1.0-6.0); PLATELET COUNT 263 10^3/uL (120.0-450.0); RED CELL DISTRIBUTION WIDTH 13.4 % (11.5-14.5); WHITE BLOOD COUNT 10.7 10^3/ul (4.5-11.0)
[2017-01-28 19:34] LABS: URINE BILIRUBIN NEGATIVE (NEGATIVE); URINE BLOOD NEGATIVE (NEGATIVE); URINE GLUCOSE (UA) NEGATIVE (NEGATIVE); URINE KETONE TRACE mg/dL (NEGATIVE); URINE LEUKOCYTE ESTERASE NEGATIVE Leu/uL (NEGATIVE); URINE PROTEIN TRACE mg/dL (<30 mg/dL); URINE UROBILINOGEN 0.2 E.U./dL (<1 E.U./dL)
[2017-01-28 19:34] LABS: ALB/GLOB RATIO 1.3 (1.1-1.8); ALKALINE PHOSPHATASE 124 U/L (38-133); ALT/SGPT 23 U/L (7-56); AST/SGOT 28 U/L (15-39); BILIRUBIN,TOTAL 0.8 mg/dL (0.2-1.3); BLOOD UREA NITROGEN 12 mg/dL (7-21); CALCIUM 9.8 mg/dL (8.4-10.5); CARBON DIOXIDE 27 mmol/L (21-33); CHLORIDE 101 mmol/L (98-107); GFR AFRICAN-AMERICAN > 60; GLUCOSE,RANDOM 102 mg/dL (70-110); LIPASE 202 U/L (23-300); POTASSIUM 4.7 mmol/L (3.6-5.0); SODIUM 137 mmol/L (132-148); TOTAL PROTEIN 7.3 g/dL (5.8-8.3)
[2017-01-28 19:38] LABS: INR 1.02 (0.93-1.08); PARTIAL THROMBOPLASTIN TIME 27.5 Seconds (23.7-30.8)
[2017-01-28 19:39] LABS: URINE APPEARANCE CLEAR (CLEAR); URINE COLOR YELLOW (YELLOW)
[2017-01-28 19:55] LABS: URINE EPITHELIAL CELLS 0 - 2 /hpf (0-5); URINE RBC NEGATIVE /hpf (0-2); URINE WBC 0 - 2 /hpf (0-6)
[2017-01-28 19:56] LABS: URINE BACTERIA MOD (NEG)
--- NOTE | 2017-01-28 21:09 | CT ---
EXAM: CT Abdomen and Pelvis Without Intravenous Contrast CLINICAL HISTORY: 86 years old, female; Pain; Abdominal pain; Localized; Lower; Prior surgery; Surgery type: Appendectomy - cholecystectomy; Additional info: Lower abd pain, constipation TECHNIQUE: Axial computed tomography images of the abdomen and pelvis without intravenous contrast. This CT exam was performed using one or more of the following dose reduction techniques: automated exposure control, adjustment of the mA and/or kV according to patient size, and/or use of iterative reconstruction technique. Coronal and sagittal reformatted images were created and reviewed. COMPARISON: CT - ABD PELVIS PO CONTRAST ONLY 12/21/2016 1:38:12 PM FINDINGS: Lower thorax: Mild atelectasis/scarring with associated mild bronchiectasis. Moderate-sized hiatal hernia. ABDOMEN: Liver: Unremarkable. Gallbladder and bile ducts: Cholecystectomy. Mild prominence of common bile duct. Minimal air within biliary tree. Pancreas: Unremarkable. No ductal dilation. Spleen: No splenomegaly. Adrenals: Mild hypertrophy of adrenal glands. Kidneys and ureters: Small exophytic lesion within LEFT kidney, grossly stable. Subcentimeter hyperdense lesion within LEFT kidney, unchanged. Faint punctate calculus/calcification within RIGHT kidney. No hydronephrosis. Stomach and bowel: Fluid/loose stool within colon. Moderate to large amount of stool within rectum. Few scattered colonic diverticula. Mild mural thickening of rectum. Mild stranding within adjacent fat. Few scattered diverticula within colon. No obstruction. Appendix: No findings to suggest appendicitis. PELVIS: Bladder: Gurrola catheter. Partial distention of bladder. No stones. Reproductive: Unremarkable as visualized. ABDOMEN and PELVIS: Intraperitoneal space: No significant fluid collection. No free air. Bones/joints: Degenerative changes of spine. No acute fracture. Soft tissues: Unremarkable. Vasculature: Kmus-at-vvrrnoqa atherosclerotic disease. No aneurysm. Lymph nodes: No pathologically enlarged lymph nodes. IMPRESSION: 1. Findings compatible with stercoral colitis. 2. Pneumobilia, possibly related to recent intervention. Correlate with surgical history. 3. Gurrola catheter within partially filled bladder. Correlate for malfunction. 4. Incidental/non-acute findings are described above.
[2017-01-29] MEDS: POLYETHYLENE GLYCOL 3350 17 GM/Dose PACKET PO SCH ×3 (00:05→14:51)
--- NOTE | 2017-01-29 00:14 | CP.PCM.PN ---
Subjective - Date & Time of Evaluation Date of Evaluation: 01/29/17 Time of Evaluation: 00:11 - Subjective Subjective: Patient was seen at bedside for her complaint of nausea, dry heaving , throwing up little clear fluid. Has no other complaints. Denies headache, dizziness, chest pain, sweating , sob. Had bowel movement today after 4 days. ROS:Except as mentioned above. 86 year old woman came in with lower abdominal pain and constipation. Has PMH of Cholecystectomy, biliary stent placed and removed, CAD, ASHD, HLD, hypothyroidism, glaucoma. Objective - Vital Signs/Intake and Output Vital Signs (last 24 hours): Temp Pulse Resp BP Pulse Ox 97.0 F L 57 L 18 139/85 95 01/28/17 23:48 01/28/17 23:48 01/28/17 23:48 01/28/17 23:48 01/28/17 23:48 - Medications Medications: Current Medications Ondansetron HCl (Zofran Inj) 4 mg IVP Q6H PRN PRN Reason: Nausea/Vomiting Polyethylene Glycol (Miralax) 17 gm PO Q8H ANAY Stop: 01/29/17 23:59 Last Admin: 01/29/17 00:05 Dose: Not Given - Labs Labs: PT 11.0 Seconds (9.9-11.8) 01/28/17 19:00 INR 1.02 (0.93-1.08) 01/28/17 19:00 APTT 27.5 Seconds (23.7-30.8) 01/28/17 19:00 - Constitutional Appears: Well, No Acute Distress - Head Exam Head Exam: ATRAUMATIC, NORMAL INSPECTION, NORMOCEPHALIC - Eye Exam Eye Exam: Normal appearance - ENT Exam ENT Exam: Mucous Membranes Moist, Normal External Ear Exam - Neck Exam Neck Exam: Normal Inspection - Respiratory Exam Respiratory Exam: NORMAL BREATHING PATTERN - Cardiovascular Exam Cardiovascular Exam: absent: JVD - GI/Abdominal Exam GI & Abdominal Exam: Soft (Yes.), Normal Bowel Sounds. absent: Distended, Firm , Guarding, Rigid, Tenderness, Hernia, Mass, Organomegaly, Pulsatile Mass, Rebound - Rectal Exam Rectal Exam: Deferred - Extremities Exam Extremities Exam: Normal Inspection - Back Exam Back Exam: NORMAL INSPECTION - Neurological Exam Neurological Exam: Alert, Oriented x3 - Psychiatric Exam Psychiatric exam: Normal Affect, Normal Mood - Skin Skin Exam: Normal Color Assessment and Plan - Assessment and Plan (Free Text) Assessment: Nausea. Abdominal pain. Constipation. CAD. HLD. Hypothyroidism. Plan: Discussed with . Zofran 4 mg IV q6H prn nausea. Continue management as per .
[2017-01-29 00:27] VITALS: BMI 19.5
--- NOTE | 2017-01-29 08:16 | RAD ---
HISTORY: abd pain, constipation COMPARISON: No prior. FINDINGS: BOWEL: Normal. No obstruction. No free air. BONES: Normal. OTHER FINDINGS: None. IMPRESSION: No active disease.
[2017-01-29] MEDS: Levothyroxine 75 MCG TAB PO SCH (10:08)
[2017-01-29 11:06] LABS: ADD MANUAL DIFF? NO
[2017-01-29 11:14] LABS: BASO # 0.03 K/mm3 (0.0-2.0); BASO % 0.3 % (0.0-3.0); EOS % 0.4 % (1.5-5.0); GRAN # 8.08 (1.4-6.5); GRAN % 78.1 % (50.0-68.0); LYMPH # 1.4 (1.2-3.4); LYMPH % 13.9 % (22.0-35.0); MEAN CELL VOLUME 91.9 fL (80.0-105.0); MEAN CORPUSCULAR HEMOGLOBIN 31.1 pg (25.0-35.0); MEAN CORPUSCULAR HGB CONC 33.8 g/dl (31.0-37.0); MEAN PLATELET VOLUME 10.2 fl (7.0-11.0); MONO # 0.8 (0.1-0.6); MONO % 7.3 % (1.0-6.0); PLATELET COUNT 225 10^3/uL (120.0-450.0); RED CELL DISTRIBUTION WIDTH 13.6 % (11.5-14.5); WHITE BLOOD COUNT 10.3 10^3/ul (4.5-11.0)
[2017-01-29 11:16] LABS: HEMATOCRIT 35.2 % (36.0-48.0)
--- NOTE | 2017-01-29 15:39 | HP ---
An 86-year-old female, was referred to [facility] on 01/28/2017 with complaints of 3-4 da ys of constipation and difficulty voiding. The patient states that she tried taking some stool softe ners, but it did not seem to help and she had some mild abdominal discomfort. In the Emergency Room, they evaluated the patient, ultimately gave the patient a Fleet enema and there was apparently stool in the rectal area, which on rectal exam, according to the Emergency Room, was guaiac positive and s ubsequently the patient did have a bowel movement. PAST MEDICAL HISTORY: Cholecystectomy, hepatopathy, arteriosclerotic heart disease, degenerative art hritis, gait disorder. ALLERGIES: THERE IS AN ALLERGY HISTORY TO CORTISONE, IODINE AND FLU VACCINE. HOME MEDICATIONS: Consist of Tenormin 25 mg daily, Actigall 300 mg twice a day, Ecotrin 81 mg daily, Lipitor 10 mg daily, Lumigan eyedrops at bedtime, Plavix 75 mg daily, Zetia 10 mg daily and Synthroi d 0.075 mg daily. REVIEW OF SYSTEMS: Fourteen systems reviewed. Pertinent findings is that the patient has some mild abdominal tenderness and a Gurrola catheter is in place at this time. Nursing staff states that during the night she had some oozing of stool. PHYSICAL EXAMINATION: VITAL SIGNS: Her temp is 99.4, her pulse is 91, her blood pressure is 109/60, her respiratory rate i s 17, her oxygen sat is 95% on room air. NECK: Supple, no JVD. LUNGS: Show diminished breath sounds at the bases. HEART: Has an irregular S1, S2 rhythm. ABDOMEN: Soft. There is some mild periumbilical tenderness. No rebound appreciated. EXTREMITIES: Show no evidence of edema. NEUROLOGIC: She is alert and oriented x 3. LABORATORY DATA: Shows WBC of 10.7, RBC 4.43, hemoglobin 13.8, hematocrit 41, platelet count 263. P T of 11 with an INR of 1.02, PTT of 27.5. Chemistry shows normal electrolytes. The BUN is 12, creat inine is 0.8. LFTs are normal. Lipase is 202. Urinalysis showed moderate urine bacteria. A CAT sc an of the abdomen and pelvis was performed in the Emergency Room and showed evidence of stercoral col itis, pneumobilia, presence of Gurrola catheter, also small exophytic lesion in the left kidney, stable and left kidney unchanged, thin calculus calcifications as in the right kidney, mural thickening of the rectum, presence of diverticula. The x-ray of the abdomen showed no evidence of active disease. IMPRESSION: Elderly female with: 1. Stercoral colitis, constipation of the bowel. 2. Abnormal urinalysis. We will check a urine culture. 3. History of hypothyroid disease. 4. Hyperlipidemia. 5. Arteriosclerotic heart disease. 6. Osteoarthritis of the knees. 7. B12 deficiency. 8. Gait disorder, secondary to osteoarthritis. We will get a GI consult, check the urine cultures, follow up pending recommendations. Elva Mack MD cc: [id number] TT: 01/29/2017 15:38:44 en
[2017-01-29] MEDS ORDERED: Non Formulary Medication (Bimatoprost [Lumigan] 1 DROP) OP SCH (22:00)
[2017-01-29] MEDS: Latanoprost 2.5 ml Opht Soln OU SCH (22:30)
[2017-01-30] MEDS: POLYETHYLENE GLYCOL 3350 17 GM/Dose PACKET PO SCH ×3 (00:58→22:14)
[2017-01-30] MEDS: Levothyroxine 75 MCG TAB PO SCH (11:30)
--- NOTE | 2017-01-30 14:44 | PN ---
DATE: 01/30/2017 Seen and examined at the bedside earlier today. She reports that she has not had any bowel movements . She feels like she needs to go, but nothing has come out and when that happens, she does get lower abdominal discomfort and pain in her rectum. No reports of nausea, vomiting, shortness of breath or chest pain. Tolerating full liquid diet. No reports of any overt GI bleed. VITAL SIGNS: Temperature 99.2, blood pressure 106/50, pulse 82, respirations 20. No new labs are noted for today. PHYSICAL EXAMINATION: HEENT: Sclera is anicteric. NECK: Supple. CARDIAC: S1, S2. LUNG SOUNDS: With decreased breath sounds at the bases, but no rales or wheeze. ABDOMEN: With bowel sounds, soft. The patient does have some minimal tenderness to ____umbilical ar ea. No rebound or guarding. EXTREMITIES: No edema. NEUROLOGIC: Awake, alert, and oriented. RECTAL: Exam also done. There was no fecal impaction palpated, no bleeding. ASSESSMENT: This is an 86-year-old female with a history of hiatal hernia, degenerative arthritis, h ad severe constipation, status post CT scan showing stercoral colitis. She did receive an enem a and did have bowel movement in the ER, was found guaiac positive. No bleeding now. The patient al so with urinary retention, now has Gurrola, history of elevated liver enzymes which was likely secondar y to biliary sludge. She has history of ascending cholangitis with cholecystectomy. She is on Actig all. PLAN: The patient was not taking the MiraLax because of complaint of oozing stools, but she does not feel totally completely clean. We will give her 2 doses of MiraLax today and then consider giving i t daily. We will monitor the stools. Continue PPI. We will keep her on a clear liquid for today. If she has good bowel movements, then we will consider advancing her diet. Continue the Actigall. The patient was seen and case discussed with Dr. Smith. Elva MCNAIR cc: [id number] TT: 01/30/2017 14:43:43 Confirmation # [id number] Dictation # [id number] en
[2017-01-30] MEDS ORDERED: POLYETHYLENE GLYCOL 3350 17 GM/Dose PACKET PO SCH (18:00)
--- NOTE | 2017-01-30 19:57 | PN ---
DATE: 01/30/2017 SUBJECTIVE: An 86-year-old female resting in bed this morning. Nursing staff relates that she has b een having some loose, oozy, soft stools. The patient states that she has been having some rectal an d abdominal discomfort with this. PHYSICAL EXAMINATION: VITAL SIGNS: Her temperature is 98, her pulse is 82, blood pressure is 112/62, respiratory rate is 1 9, oxygen saturation on room air is 95%. GENERAL: She is alert and oriented x 3. NECK: Supple. No JVD. HEART: Has an S1, S2 rhythm. ABDOMEN: Soft, positive bowel sounds. EXTREMITIES: Show no evidence of edema. GENITOURINARY: There is a Gurrola catheter in place. CURRENT MEDICATIONS: The patient is currently on Actigall 300 mg b.i.d., MiraLax 17 grams q. 8 hours , Protonix 40 mg IV daily, Synthroid 75 mcg daily, Tenormin 25 mg daily, Tylenol p.r.n. for pain, Xal atan eye drops and Zofran. ASSESSMENT AND PLAN: The patient is being followed by gastroenterology for her fecal impaction. A u rinalysis was abnormal. There is a Gurrola catheter in place because of urinary retention. A consult h as been requested with urology and urine culture is pending. We will continue to monitor the patient closely at this time on the current regimen and follow up the patient's labs. She has a history of hypothyroid on Synthroid replacement therapy, degenerative arthritis, gait disorder. Requested a phys ical therapy evaluation to initiate ambulation with the patient. Elva Mack MD cc: [id number] TT: 01/30/2017 19:57:39 Confirmation # [id number] Dictation # [id number] ln
[2017-01-30] MEDS: Latanoprost 2.5 ml Opht Soln OU SCH (22:17)
[2017-01-31 07:45] LABS: ADD MANUAL DIFF? NO
[2017-01-31 08:01] LABS: BLOOD UREA NITROGEN 11 mg/dL (7-21); CALCIUM 8.7 mg/dL (8.4-10.5); CARBON DIOXIDE 26 mmol/L (21-33); CHLORIDE 99 mmol/L (95-110); GFR AFRICAN-AMERICAN > 60; GLUCOSE,RANDOM 68 mg/dL (70-110); POTASSIUM 3.9 mmol/L (3.6-5.0); SODIUM 134 mmol/L (132-148)
[2017-01-31 08:10] LABS: BASO # 0.02 K/mm3 (0.0-2.0); BASO % 0.3 % (0.0-3.0); EOS % 0.4 % (1.5-5.0); GRAN # 6.12 (1.4-6.5); HEMATOCRIT 35.8 % (36.0-48.0); LYMPH # 1.2 (1.2-3.4); LYMPH % 15.1 % (22.0-35.0); MEAN CELL VOLUME 92.7 fL (80.0-105.0); MEAN CORPUSCULAR HEMOGLOBIN 31.1 pg (25.0-35.0); MEAN CORPUSCULAR HGB CONC 33.5 g/dl (31.0-37.0); MEAN PLATELET VOLUME 10.5 fl (7.0-11.0); MONO # 0.6 (0.1-0.6); MONO % 7.2 % (1.0-6.0); PLATELET COUNT 244 10^3/uL (120.0-450.0); RED CELL DISTRIBUTION WIDTH 13.3 % (11.5-14.5); WHITE BLOOD COUNT 7.9 10^3/ul (4.5-11.0)
[2017-01-31] MEDS: Levothyroxine 75 MCG TAB PO SCH (10:06)
--- NOTE | 2017-01-31 12:23 | US ---
PROCEDURE: Lower extremity TANYA exam HISTORY: Peripheral vascular disease with pain and claudication. Previous smoker PHYSICIAN(S): Jorge Leiva MD. FINDINGS: The resting TANYA's are abnormally elevated: Right, 1.58 and left, 1.25 The brachial systolic pressures are symmetric. The high thigh pressures and waveforms are relatively normal. The calf PVR waveforms augment normally. No significant gradients are noted across the thighs. The right ankle and metatarsal waveforms are slightly diminished compared to the left. Both lower extremities are pulsatile. This could represent mild right tibial occlusive disease. IMPRESSION: 1. Mild right tibial occlusive disease.
[2017-01-31] MEDS ORDERED: Bupivacaine 0.5% Inj(30mL) IJ ONE (12:44)
[2017-01-31] MEDS ORDERED: MethylPREDNISolone Depo 40 mg/ml Inj IM ONE (12:44)
--- NOTE | 2017-01-31 13:33 | RAD ---
PROCEDURE: Right Knee Radiographs. HISTORY: painfull right knee COMPARISON: None. FINDINGS: BONES: Normal. No fracture. JOINTS: Degenerative changes are seen in the lateral joint compartment and patellofemoral joint JOINT EFFUSION: Small joint effusion OTHER FINDINGS: None. IMPRESSION: No acute findings
[2017-01-31 14:18] LABS: FLUID TYPE SYNOVIAL FLUID
[2017-01-31 14:39] LABS: SYNOVIAL FLUID LYMPHOCYTE 14.4 % (0-0); SYNOVIAL FLUID NEUTROPHIL 85.6 % (0-0)
[2017-01-31 14:40] LABS: SYNOVIAL FLUID TOTAL COUNT 100 (0-0)
--- NOTE | 2017-01-31 16:24 | CP.PCM.PN ---
Subjective - Date & Time of Evaluation Date of Evaluation: 01/31/17 Time of Evaluation: 11:00 - Subjective Subjective: S&E earlier today. Had BM but felt like diarrhea, still has the urge to go and when that happens get lower rectal pain and nothing comes out, rectal exam done yesterday that was negative. No bleeding. Tolerated pure diet. C/o knee pain waiting to see the orthopedic. Objective - Vital Signs/Intake and Output Vital Signs (last 24 hours): Temp Pulse Resp BP Pulse Ox 100.2 F H 87 18 116/50 L 98 01/31/17 10:07 01/31/17 10:06 01/31/17 08:29 01/31/17 10:06 01/31/17 08:29 Intake and Output: 01/31/17 01/31/17 06:59 18:59 Intake Total 120 480 Output Total 100 450 Balance 20 30 - Medications Medications: Current Medications Acetaminophen (Tylenol 325mg Tab) 650 mg PO Q4H PRN PRN Reason: Pain, moderate (4-7) Last Admin: 01/31/17 10:07 Dose: 650 mg Atenolol (Tenormin) 25 mg PO DAILY [facility] Last Admin: 01/31/17 10:06 Dose: 25 mg Latanoprost (Xalatan Opht) 0.02 ml OU HS [facility] Last Admin: 01/30/17 22:17 Dose: Not Given Levothyroxine Sodium (Synthroid) 75 mcg PO DAILY [facility] Last Admin: 01/31/17 10:06 Dose: 75 mcg Nystatin (Nystop Topical Powder) 0 gm TOP BID [facility] Ondansetron HCl (Zofran Inj) 4 mg IVP Q6H PRN PRN Reason: Nausea/Vomiting Last Admin: 01/29/17 00:13 Dose: 4 mg Pantoprazole Sodium (Protonix Inj) 40 mg IVP DAILY [facility] Last Admin: 01/31/17 10:07 Dose: 40 mg Ursodiol (Actigall) 300 mg PO 0800,1800 [facility] Last Admin: 01/31/17 08:39 Dose: 300 mg - Labs Labs: 01/31/17 07:00 01/31/17 07:00 PT 11.0 Seconds (9.9-11.8) 01/28/17 19:00 INR 1.02 (0.93-1.08) 01/28/17 19:00 APTT 27.5 Seconds (23.7-30.8) 01/28/17 19:00 - Constitutional Appears: No Acute Distress - Head Exam Head Exam: NORMAL INSPECTION - Eye Exam Eye Exam: Normal appearance. absent: Scleral icterus - ENT Exam ENT Exam: Mucous Membranes Moist - Respiratory Exam Respiratory Exam: Clear to Ausculation Bilateral, NORMAL BREATHING PATTERN. absent: Respiratory Distress - Cardiovascular Exam Cardiovascular Exam: +S1, +S2 - GI/Abdominal Exam GI & Abdominal Exam: Soft, Normal Bowel Sounds. absent: Guarding, Tenderness, Rebound - Extremities Exam Extremities Exam: Joint Swelling (knees). absent: Calf Tenderness, Pedal Edema - Neurological Exam Neurological Exam: Alert, Awake, Oriented x3 - Skin Skin Exam: Dry, Warm Assessment and Plan - Assessment and Plan (Free Text) Assessment: ASSESSMENT: Severe Consitpation/Sterocolitis Urinary retention, has de jesus Large H/H paraesophageal Right knee pain H/O Ascending cholangitis, had ERCP with stent in the past H/O elevated LFT secondary to sludge H/O cholecystectomy PLAN: puree diet continue PPI continue Actigall ortho FU took 2 doses of Miralax last night labs reviewed. cbc/bmp=stable Seen and discussed w/ Dr. Smith.
[2017-01-31] MEDS: Nystatin 100,000 Units/gm Topical Pow(15 gm) TOP SCH (17:30)
--- NOTE | 2017-01-31 20:10 | CP.PCM.CON ---
History of Present Illness - History of Present Illness History of Present Illness: cc: abd pain urinary retention Past Patient History - Infectious Disease Hx of Infectious Diseases: None - Past Social History Smoking Status: Former Smoker - CARDIAC Hx Cardiac Disorders: Yes Hx Hypertension: Yes - PULMONARY Hx Chronic Obstructive Pulmonary Disease (COPD): Yes - NEUROLOGICAL Hx Neurological Disorder: Yes Hx Dizziness: Yes - HEENT Hx HEENT Problems: Yes (WEARS RX GLASSES, [place]) Hx Cataracts: Yes Hx Glaucoma: Yes - RENAL Hx Chronic Kidney Disease: No - ENDOCRINE/METABOLIC Hx Hypothyroidism: Yes - HEMATOLOGICAL/ONCOLOGICAL Hx Blood Disorders: No - INTEGUMENTARY Hx Dermatological Problems: No - MUSCULOSKELETAL/RHEUMATOLOGICAL Hx Musculoskeletal Disorders: Yes Hx Falls: No - GASTROINTESTINAL Hx Gastrointestinal Disorders: Yes (hiatal hernia) - GENITOURINARY/GYNECOLOGICAL Hx Genitourinary Disorders: Yes - PSYCHIATRIC Hx Psychophysiologic Disorder: No Hx Depression: No Hx Emotional Abuse: No Hx Physical Abuse: No - SURGICAL HISTORY Hx Appendectomy: Yes Hx Cholecystectomy: Yes Other/Comment: r breast cyst removed - ANESTHESIA Hx Anesthesia: Yes Meds Allergies/Adverse Reactions: Allergies Allergy/AdvReac Type Severity Reaction Status Date / Time cortisone Allergy RASH Verified 01/28/17 17:35 iodine Allergy RASH Verified 01/28/17 17:35 cortisone Allergy SWELLING Uncoded 01/28/17 17:35 flu vaccine Allergy RASH Uncoded 01/28/17 17:35 - Medications Medications: Current Medications Acetaminophen (Tylenol 325mg Tab) 650 mg PO Q4H PRN PRN Reason: Pain, moderate (4-7) Last Admin: 01/31/17 10:07 Dose: 650 mg Atenolol (Tenormin) 25 mg PO DAILY [facility] Last Admin: 01/31/17 10:06 Dose: 25 mg Docusate Sodium (Colace) 100 mg PO TID [facility] Latanoprost (Xalatan Opht) 0.02 ml OU HS [facility] Last Admin: 01/30/17 22:17 Dose: Not Given Levothyroxine Sodium (Synthroid) 75 mcg PO DAILY [facility] Last Admin: 01/31/17 10:06 Dose: 75 mcg Nystatin (Nystop Topical Powder) 0 gm TOP BID [facility] Last Admin: 01/31/17 17:30 Dose: 1 applic Ondansetron HCl (Zofran Inj) 4 mg IVP Q6H PRN PRN Reason: Nausea/Vomiting Last Admin: 01/29/17 00:13 Dose: 4 mg Pantoprazole Sodium (Protonix Inj) 40 mg IVP DAILY [facility] Last Admin: 01/31/17 10:07 Dose: 40 mg Sodium Phosphate (Fleet Enema) 135 ml RC ONCE ONE Stop: 01/31/17 20:06 Ursodiol (Actigall) 300 mg PO 0800,1800 [facility] Last Admin: 01/31/17 17:30 Dose: 300 mg Results - Vital Signs Recent Vital Signs: Last Vital Signs Temp 97.8 F 01/31/17 16:00 Pulse 71 01/31/17 16:00 Resp 19 01/31/17 16:00 BP 111/60 01/31/17 16:00 Pulse Ox 97 01/31/17 16:00 - Labs Result Diagrams: 01/31/17 07:00 01/31/17 07:00 Labs: Laboratory Results - last 24 hr 01/31/17 01/31/17 01/31/17 07:00 07:00 13:30 WBC 7.9 D RBC 3.86 Hgb 12.0 Hct 35.8 L MCV 92.7 MCH 31.1 MCHC 33.5 RDW 13.3 Plt Count 244 MPV 10.5 Gran % 77.0 H Lymph % (Auto) 15.1 L Taylor % (Auto) 7.2 H Eos % (Auto) 0.4 L Baso % (Auto) 0.3 Gran # 6.12 Lymph # 1.2 Taylor # 0.6 Eos # 0.0 Baso # 0.02 Sodium 134 Potassium 3.9 Chloride 99 Carbon Dioxide 26 Anion Gap 13 BUN 11 Creatinine 0.7 Est GFR ( Amer) > 60 Est GFR (Non-Af Amer) > 60 Random Glucose 68 L Calcium 8.7 Fluid Type Synovial fluid Synovial WBC 6240.0 H Synovial RBC 1742.0 H Synovial Neutrophils 85.6 H Synovial Lymphocytes 14.4 H Synov Monos/Macrophage TEST NOT PERFORMED Synovial Fluid Comment Sticky fluid Assessment & Plan - Assessment and Plan (Free Text) Assessment: IMP: HX OF URINARY RETENTION OBSTIPATION Plan: REC/PLAN: SCHEDULED AND PROMPTED VOIDING BOWEL RX PLEASE SEE DICATED REPORT - T/F THANK YOU YS - Date & Time Date: 01/31/17 Time: 20:09
[2017-01-31] MEDS: Latanoprost 2.5 ml Opht Soln OU SCH (21:15)
--- NOTE | 2017-02-01 09:16 | US ---
PROCEDURE: Right lower extremity venous US HISTORY: Leg pain and swelling. Evaluate for DVT. PHYSICIAN(S): Jorge Leiva M.D. TECHNIQUE: Duplex sonography and color-flow Doppler with graded compression were used to evaluate the deep venous system of the right lower extremity. FINDINGS: The visualized deep venous system of the right lower extremity is sonographically normal and compressible. Normal waveforms and augmentation are seen. There is no sonographic evidence for deep venous thrombosis in the visualized segments of the right lower extremity. IMPRESSION: 1. No sonographic evidence for deep venous thrombosis in the visualized segments of the right lower extremity.
[2017-02-01 09:17] VITALS: RESP 20
[2017-02-01] MEDS: Nystatin 100,000 Units/gm Topical Pow(15 gm) TOP SCH ×2 (09:20→17:40)
[2017-02-01] MEDS: Levothyroxine 75 MCG TAB PO SCH (09:20)
[2017-02-01] MEDS ORDERED: Magnesium Citrate Oral SOL (300 ml) PO ONE (10:38)
--- NOTE | 2017-02-01 10:43 | CP.PCM.PN ---
Subjective - Date & Time of Evaluation Date of Evaluation: 02/01/17 Time of Evaluation: 10:30 - Subjective Subjective: S&E at bedside, de jesus removed yesterday and urinating. Reports no BM, put have urge. Witnessed on commode, liquid light brown stool mixed with urine. No bleeding or complaints of N/V or abdominal pain. Objective - Vital Signs/Intake and Output Vital Signs (last 24 hours): Temp Pulse Resp BP Pulse Ox 97.6 F 74 20 127/75 97 02/01/17 09:16 02/01/17 09:20 02/01/17 09:16 02/01/17 09:20 02/01/17 09:16 Intake and Output: 02/01/17 02/01/17 06:59 18:59 Intake Total 950 Output Total 200 Balance 750 - Medications Medications: Current Medications Acetaminophen (Tylenol 325mg Tab) 650 mg PO Q4H PRN PRN Reason: Pain, moderate (4-7) Last Admin: 01/31/17 10:07 Dose: 650 mg Atenolol (Tenormin) 25 mg PO DAILY [facility] Last Admin: 02/01/17 09:20 Dose: 25 mg Docusate Sodium (Colace) 100 mg PO TID [facility] Last Admin: 02/01/17 09:19 Dose: 100 mg Latanoprost (Xalatan Opht) 0.02 ml OU HS [facility] Last Admin: 01/31/17 21:15 Dose: 0.02 ml Levothyroxine Sodium (Synthroid) 75 mcg PO DAILY [facility] Last Admin: 02/01/17 09:20 Dose: 75 mcg Nystatin (Nystop Topical Powder) 0 gm TOP BID [facility] Last Admin: 02/01/17 09:20 Dose: 1 applic Ondansetron HCl (Zofran Inj) 4 mg IVP Q6H PRN PRN Reason: Nausea/Vomiting Last Admin: 01/29/17 00:13 Dose: 4 mg Pantoprazole Sodium (Protonix Inj) 40 mg IVP DAILY [facility] Last Admin: 02/01/17 09:20 Dose: 40 mg Ursodiol (Actigall) 300 mg PO 0800,1800 [facility] Last Admin: 02/01/17 08:31 Dose: 300 mg - Labs Labs: 01/31/17 07:00 01/31/17 07:00 PT 11.0 Seconds (9.9-11.8) 01/28/17 19:00 INR 1.02 (0.93-1.08) 01/28/17 19:00 APTT 27.5 Seconds (23.7-30.8) 01/28/17 19:00 - Constitutional Appears: No Acute Distress - Head Exam Head Exam: NORMAL INSPECTION - Eye Exam Eye Exam: Normal appearance. absent: Scleral icterus - ENT Exam ENT Exam: Mucous Membranes Moist - Neck Exam Neck Exam: Normal Inspection - Respiratory Exam Respiratory Exam: Clear to Ausculation Bilateral, NORMAL BREATHING PATTERN. absent: Respiratory Distress - Cardiovascular Exam Cardiovascular Exam: +S1, +S2 - GI/Abdominal Exam GI & Abdominal Exam: Soft, Normal Bowel Sounds. absent: Guarding, Tenderness, Rebound - Rectal Exam Rectal Exam: absent: Black Stool, Bloody Stool, Fecal Impaction - Neurological Exam Neurological Exam: Alert, Awake, Oriented x3 Assessment and Plan - Assessment and Plan (Free Text) Assessment: ASSESSMENT: Severe Consitpation/Sterocolitis Urinary retention, de jesus removed and voiding Large H/H paraesophageal Right knee pain H/O Ascending cholangitis, had ERCP with stent in the past H/O elevated LFT secondary to sludge H/O cholecystectomy PLAN: puree diet continue PPI continue Actigall ortho FU continue Colace TID give dose mag citrate I&O discuss w/ Dr. Mack Seen and discussed w/ Dr. Smith.
[2017-02-02 07:19] LABS: ADD MANUAL DIFF? NO
[2017-02-02 07:24] LABS: BASO # 0.02 K/mm3 (0.0-2.0); BASO % 0.2 % (0.0-3.0); GRAN # 6.52 (1.4-6.5); GRAN % 79.4 % (50.0-68.0); HEMATOCRIT 36.8 % (36.0-48.0); LYMPH # 1.1 (1.2-3.4); LYMPH % 13.8 % (22.0-35.0); MEAN CELL VOLUME 91.3 fL (80.0-105.0); MEAN PLATELET VOLUME 10.4 fl (7.0-11.0); MONO # 0.5 (0.1-0.6); MONO % 6.6 % (1.0-6.0); PLATELET COUNT 280 10^3/uL (120.0-450.0); RED CELL DISTRIBUTION WIDTH 13.2 % (11.5-14.5); WHITE BLOOD COUNT 8.2 10^3/ul (4.5-11.0)
[2017-02-02 07:33] LABS: BLOOD UREA NITROGEN 14 mg/dL (7-21); CARBON DIOXIDE 32 mmol/L (21-33); CHLORIDE 100 mmol/L (95-110); GFR AFRICAN-AMERICAN > 60; GLUCOSE,RANDOM 88 mg/dL (70-110); POTASSIUM 4.6 mmol/L (3.6-5.0); SODIUM 137 mmol/L (132-148)
[2017-02-02 09:03] VITALS: BP 123/64; PULSE 71; TEMP 97.6; O2SAT 97
[2017-02-02] MEDS: Levothyroxine 75 MCG TAB PO SCH (11:11)
[2017-02-02] MEDS: Nystatin 100,000 Units/gm Topical Pow(15 gm) TOP SCH (11:17)
--- NOTE | 2017-02-02 14:51 | CP.PCM.PN ---
Subjective - Date & Time of Evaluation Date of Evaluation: 02/02/17 Time of Evaluation: 09:00 - Subjective Subjective: Problems Constipation On GI bowel regimen. Moving bowels. Swollen Right knee S/p Ortho eval effusion less painful Objective - Vital Signs/Intake and Output Vital Signs (last 24 hours): Temp Pulse Resp BP Pulse Ox 97.6 F 71 20 123/64 97 02/02/17 09:02 02/02/17 09:02 02/02/17 09:02 02/02/17 11:12 02/02/17 09:02 Intake and Output: 02/02/17 02/02/17 06:59 18:59 Intake Total 240 Output Total 900 Balance -660 - Medications Medications: Current Medications Acetaminophen (Tylenol 325mg Tab) 650 mg PO Q4H PRN PRN Reason: Pain, moderate (4-7) Last Admin: 01/31/17 10:07 Dose: 650 mg Atenolol (Tenormin) 25 mg PO DAILY [facility] Last Admin: 02/02/17 11:12 Dose: 25 mg Docusate Sodium (Colace) 100 mg PO TID [facility] Last Admin: 02/02/17 14:08 Dose: 100 mg Latanoprost (Xalatan Opht) 0.02 ml OU HS [facility] Last Admin: 01/31/17 21:15 Dose: 0.02 ml Levothyroxine Sodium (Synthroid) 75 mcg PO DAILY [facility] Last Admin: 02/02/17 11:11 Dose: 75 mcg Nystatin (Nystop Topical Powder) 0 gm TOP BID [facility] Last Admin: 02/02/17 11:17 Dose: 1 applic Ondansetron HCl (Zofran Inj) 4 mg IVP Q6H PRN PRN Reason: Nausea/Vomiting Last Admin: 01/29/17 00:13 Dose: 4 mg Pantoprazole Sodium (Protonix Inj) 40 mg IVP DAILY [facility] Last Admin: 02/02/17 11:12 Dose: 40 mg Ursodiol (Actigall) 300 mg PO 0800,1800 [facility] Last Admin: 02/02/17 08:22 Dose: 300 mg - Labs Labs: 02/02/17 06:40 02/02/17 06:40 PT 11.0 Seconds (9.9-11.8) 01/28/17 19:00 INR 1.02 (0.93-1.08) 01/28/17 19:00 APTT 27.5 Seconds (23.7-30.8) 01/28/17 19:00 - Constitutional Appears: Well - Head Exam Head Exam: ATRAUMATIC, NORMAL INSPECTION, NORMOCEPHALIC - Eye Exam Eye Exam: EOMI, Normal appearance, PERRL - Neck Exam Neck Exam: Full ROM, Normal Inspection. absent: Lymphadenopathy - Respiratory Exam Respiratory Exam: Clear to Ausculation Bilateral, NORMAL BREATHING PATTERN - Cardiovascular Exam Cardiovascular Exam: REGULAR RHYTHM, +S1, +S2. absent: Murmur - GI/Abdominal Exam GI & Abdominal Exam: Soft, Normal Bowel Sounds. absent: Tenderness - Rectal Exam Rectal Exam: NORMAL INSPECTION - Extremities Exam Extremities Exam: Joint Swelling - Neurological Exam Neurological Exam: Abnormal Gait - Skin Skin Exam: Dry, Intact, Normal Color, Warm Assessment and Plan - Assessment and Plan (Free Text) Plan: TCU eval Continue bowel regimen
--- NOTE | 2017-02-15 14:23 | CP.PCM.CON ---
History of Present Illness - History of Present Illness History of Present Illness: Patient is an 86 year old female with urinary retention. The patient is in otherwise fair health. Patient was admitted with a 4 day history of obstipation. She reports that she had her most recent bowel movement approximately 3-4 days ago on Monday, January 28, 2017. Patient reports she has not had a bowel movement since. Patient has significant previous surgical history. She had previous cholecystectomy. She had previous hiatal hernia repair. She reports the hiatal hernia repair has not been successful. The patient has history of previous labor in delivery. Previous appendectomy. Patient has history of chronic problems with constipation. There is history of hypertension as well. The patient lives with her son-in-law. Her daughter has passed. The patient also reports she is having problems with her knees during this admission. She reports that she has or will have a needle aspiration and injection for her knee. Patient reports fair appetite. No recent weight loss. The patient reports good previous urination, extremely good control. No history of urinary tract infection. No history of urolithiasis. No recent hematuria. No dysuria. No incontinence. Mrs. Tracey was found to have urinary retention. She had a Gurrola catheter inserted. Review of Systems - Constitutional Constitutional: Other (fair appetite ). absent: Weight Loss - Gastrointestinal Gastrointestinal: Constipation - Genitourinary Genitourinary: Other (urinary retention ). absent: Dysuria, Urinary Incontinence - Musculoskeletal Musculoskeletal: Other (problem with knees bilaterally ) Past Patient History - Infectious Disease Hx of Infectious Diseases: None - Past Social History Smoking Status: Former Smoker Home Situation {Lives}: With Family (son-in-law) - CARDIAC Hx Cardiac Disorders: Yes Hx Hypertension: Yes - PULMONARY Hx Chronic Obstructive Pulmonary Disease (COPD): Yes - NEUROLOGICAL Hx Neurological Disorder: Yes Hx Dizziness: Yes - HEENT Hx HEENT Problems: Yes (WEARS RX GLASSES, KAKE) Hx Cataracts: Yes Hx Glaucoma: Yes - RENAL Hx Chronic Kidney Disease: No - ENDOCRINE/METABOLIC Hx Hypothyroidism: Yes - HEMATOLOGICAL/ONCOLOGICAL Hx Blood Disorders: No - INTEGUMENTARY Hx Dermatological Problems: No - MUSCULOSKELETAL/RHEUMATOLOGICAL Hx Musculoskeletal Disorders: Yes Hx Falls: No - GASTROINTESTINAL Hx Gastrointestinal Disorders: Yes (hiatal hernia) Hx Constipation: Yes (chronic ) - GENITOURINARY/GYNECOLOGICAL Hx Genitourinary Disorders: Yes - PSYCHIATRIC Hx Psychophysiologic Disorder: No Hx Depression: No Hx Emotional Abuse: No Hx Physical Abuse: No - SURGICAL HISTORY Hx Appendectomy: Yes Hx Cholecystectomy: Yes Hx Herniorrhaphy: Yes (hiatal) Other/Comment: r breast cyst removed - ANESTHESIA Hx Anesthesia: Yes Meds Home Medications: Home Medication List Medication Instructions Recorded Confirmed Type Acetaminophen [Tylenol 325mg tab] 650 mg PO Q4H PRN tab 02/02/17 Rx Atenolol [Tenormin] 25 mg PO DAILY tab 02/02/17 Rx Docusate [Colace] 100 mg PO TID cap 02/02/17 Rx Latanoprost 0.005% Opht [Xalatan 0.02 ml OU HS bottle 02/02/17 Rx Opht] Levothyroxine [Synthroid] 75 mcg PO DAILY tab 02/02/17 Rx Ursodiol [Actigall] 300 mg PO 0800,1800 cap 02/02/17 Rx Allergies/Adverse Reactions: Allergies Allergy/AdvReac Type Severity Reaction Status Date / Time cortisone Allergy RASH Verified 02/02/17 18:25 iodine Allergy RASH Verified 02/02/17 18:25 cortisone Allergy SWELLING Uncoded 02/02/17 18:25 flu vaccine Allergy RASH Uncoded 02/02/17 18:25 Physical Exam - Constitutional Appears: No Acute Distress Additional comments: Patient awake. Is a well developed, thin elderly female. - GI/Abdominal Exam GI & Abdominal Exam: Soft. absent: Distended, Mass, Organomegaly, Tenderness - Exam Exam: absent: Bladder Distension (to palpation or percussion) Additional comments: The Gurrola catheter was removed earlier today. Patient reports she is urinating comfortably at present. - Back Exam Back exam: absent: CVA tenderness (L), CVA tenderness (R) - Neurological Exam Neurological exam: Alert, Oriented x3 Results - Vital Signs Recent Vital Signs: Last Vital Signs Temp 97.6 F 02/02/17 09:02 Pulse 71 02/02/17 09:02 Resp 20 02/02/17 09:02 BP 123/64 02/02/17 11:12 Pulse Ox 97 02/02/17 09:02 - Labs Result Diagrams: 02/02/17 06:40 02/02/17 06:40 Labs: 01/31/17: WBC is 7000. Hematocrit: 35.8. BUN:11. Creatinine: 0.7. Urinalysis was normal on 01/28/2017. Assessment & Plan - Assessment and Plan (Free Text) Assessment: 86 year old female with urinary retention. A predisposing course in urinary retention for this patient with constipation and obstipation. Patient had been previously urologically stable. Patient reports comfortable voiding at present. Plan: Ordered an Enema and Colace in view of patient's persistent obstipation. I would recommend monitoring patient's urine output. Encouraged voiding. Assisted voiding. Assistance in prompting voiding. Further therapy on follow-up according to patient's clinical course. I will discuss the matter with the nursing staff and the patient. I will discuss the matter with her Dr. Mack. - Date & Time Date: 01/31/17
--- NOTE | 2017-02-25 15:19 | DS ---
An 86-year-old female admitted into the hospital for constipation and being followed by GI, also by orthopedics for effusion of the right knee. Temp was 97. Blood pressure was 120/70. She is alert and oriented x3. The patient will be continuing her care on the transitional care unit for occupational and physical therapy and continue her bowel regimen. She will be followed by GI and orthopedics. She will be on Actigall 300 mg twice a day, Protonix 40 mg, nystatin powder b.i.d., Synthroid 75 mcg daily, Xalatan eye drops at bedtime to the left eye, Colace 100 mg t.i.d., atenolol 25 mg daily, and Tylenol. Elva Mack MD
--- NOTE | 2017-03-08 15:23 | CONS ---
This 86-year-old patient with a large hiatus hernia, history of CBD stone in the past was initially admitted with a fecal impaction. The patient did have a Fleets enema and had a good result in the ER. Subsequently, she had some oozing of blood. The patient is admitted for monitoring. The patient is not able to pass urine and also had a Gurrola catheter placed. She has a history of abdominal discomfort, improved. The patient presently on a liquid diet, tolerating. PAST MEDICAL HISTORY: The patient's other past medical history significant for surgery for hiatus hernia, cholecystectomy, status CBD stone, status post biliary stent placement, degenerative joint disease. ALLERGIES: Allergic to CORTISONE, IODINE AND also FLU VACCINE. REVIEW OF SYSTEMS: Positive as above. Other systems reviewed and negative. The patient has a Gurrola catheter now. GENERAL: The patient is lying on the bed, not in acute distress. VITAL SIGNS: Temperature 99.4, pulse is 91, blood pressure 109/60, respiration 17, and O2 sat is 92%. HEENT: Atraumatic, anicteric. NECK: Supple. HEART: S1, S2 heard. LUNGS: Bilateral air entry present. ABDOMEN: Soft. There is no mass. No tenderness. EXTREMITIES: No edema or cyanosis. LABORATORY DATA: Hemoglobin 11.9, hematocrit 35.2, WBC is 10.3, platelets 225. Hemoglobin was initially 13.8. Chemistries showed essentially unremarkable. IMPRESSION: An 86-year-old patient with a history of CBD stone, status post ERCP and removal, history of sludge. Remains on chronic Actigall therapy. History of large hiatus hernia with significant paraesophageal complement. The patient has been strongly encouraged to take a soft diet, pureed diet. The patient did have a CT scan of the abdomen and pelvis done in the Emergency Room. On examination, the patient is lying on the bed, not in acute distress. VITAL SIGNS: Temperature 99.4, pulse 91, blood pressure 109/60, O2 saturation is 92. HEENT: Atraumatic, anicteric. NECK: Supple. LUNGS: Bilateral air entry present. slightly reduced at the base. ABDOMEN: Soft. There is no tenderness at this time. EXTREMITIES: No cyanosis, no clubbing. LABORATORY AND DIAGNOSTIC DATA: LFTs are essentially unremarkable. CT reviewed. IMPRESSION: 1. This 86-year-old patient is admitted with a fecal impaction, status post Fleets enema with a good improvement. 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 Decision was to leave her on low dose Actigall. 2. GERD. Lifestyle changes and continue with PPI. 3. The patient has a patchy erythema. 4. The patient has a large hiatus hernia present. RECOMMEND: 1. To restart the MiraLax. 2. Advance diet. The patient presently able to tolerate liquid diet, no problems now. 3. Will continue the MiraLax one more dose and Colace. 4. Will restart the MiraLax and will reevaluate the symptoms. 5. The patient may benefit from a trial of Amitiza. 6. Will further advance the diet to puree diet. Thank you very much for allowing me to participate in the care of the patient. We will continue the PPI. Abdifatah Smith MD [facility]
== END 2017-02-02 16:52 ==
LOC: ED 17:29 → ERH 21:57 → 3RSO 23:44 → OBSVTOIN 01-30 11:35 → INTOOBSV 01-30 11:35
PROVIDERS: ADMIT Internal Medicine; ATTEND Internal Medicine
DX: K56.41 Fecal impaction (principal); K52.89 Other specified noninfective gastroenteritis and colitis; J44.9 Chronic obstructive pulmonary disease, unspecified; I10 Essential (primary) hypertension; E53.8 Deficiency of other specified B group vitamins; E03.9 Hypothyroidism, unspecified; I25.10 Atherosclerotic heart disease of native coronary artery without angina pectoris; E78.5 Hyperlipidemia, unspecified; R33.9 Retention of urine, unspecified; K44.9 Diaphragmatic hernia without obstruction or gangrene; E78.00 Pure hypercholesterolemia, unspecified; M25.461 Effusion, right knee; M17.0 Bilateral primary osteoarthritis of knee; Z90.49 Acquired absence of other specified parts of digestive tract; Z79.02 Long term (current) use of antithrombotics/antiplatelets; Z87.891 Personal history of nicotine dependence
CPT/HCPCS: 36415; 73560; 74020; 74176; 80048; 80053; 81001; 83690; 85025; 85610; 85730; 87070; 87086; 89051; 93923; 93971; 97116; 97161; 97530; 99285; C9113; G0378; G8978; G8979; J2405; J7040

== ENCOUNTER 2017-02-02 16:55 | Inpatient (IN) | payer MEDICARE ==
[2017-02-02 17:50] VITALS: BMI 19.1
[2017-02-02] MEDS: Latanoprost 2.5 ml Opht Soln OU SCH (22:09)
[2017-02-02] MEDS ORDERED: Pneumococcal 23-Valent Vaccine IM ONE (22:28)
[2017-02-03] MEDS: Pantoprazole 20 mg EC Tab PO SCH (05:27)
[2017-02-03] MEDS: Levothyroxine 75 MCG TAB PO SCH (05:28)
[2017-02-03] MEDS: Nystatin 100,000 Units/gm Topical Pow(15 gm) TOP SCH ×2 (11:14→18:11)
[2017-02-03] MEDS: Latanoprost 2.5 ml Opht Soln OU SCH (21:37)
[2017-02-04] MEDS: Levothyroxine 75 MCG TAB PO SCH (05:34)
[2017-02-04] MEDS: Pantoprazole 20 mg EC Tab PO SCH (05:35)
[2017-02-04 07:11] LABS: ALB/GLOB RATIO 1.2 (1.1-1.8); ALBUMIN 3.7 g/dL (3.0-4.8); ALT/SGPT 16 U/L (7-56); AST/SGOT 24 U/L (15-39); BLOOD UREA NITROGEN 12 mg/dL (7-21); CALCIUM 9.1 mg/dL (8.4-10.5); GFR AFRICAN-AMERICAN > 60; GFR NON-AFRICAN AMERICAN > 60
[2017-02-04 07:41] LABS: BASO # 0.03 K/mm3 (0.0-2.0); BASO % 0.5 % (0.0-3.0); EOS % 0.7 % (1.5-5.0); GRAN % 58.6 % (50.0-68.0); HEMOGLOBIN 14.6 gm/dL (12.0-16.0); LYMPH # 1.8 (1.2-3.4); LYMPH % 32.6 % (22.0-35.0); MEAN CORPUSCULAR HEMOGLOBIN 31.6 pg (25.0-35.0); MEAN CORPUSCULAR HGB CONC 33.3 g/dl (31.0-37.0); MEAN PLATELET VOLUME 11.5 fl (7.0-11.0); MONO # 0.4 (0.1-0.6); MONO % 7.6 % (1.0-6.0); PLATELET COUNT 278 10^3/uL (120.0-450.0); RBC 4.62 10^6/uL (3.5-6.1); WHITE BLOOD COUNT 5.6 10^3/ul (4.5-11.0)
[2017-02-04] MEDS: Nystatin 100,000 Units/gm Topical Pow(15 gm) TOP SCH (09:48)
--- NOTE | 2017-02-04 10:12 | CP.PCM.PN ---
Subjective - Date & Time of Evaluation Date of Evaluation: 02/04/17 Time of Evaluation: 10:00 - Subjective Subjective: Feel ok Objective - Vital Signs/Intake and Output Vital Signs (last 24 hours): Temp Pulse Resp BP Pulse Ox 97.7 F 69 16 113/63 100 02/04/17 06:00 02/04/17 06:00 02/04/17 06:00 02/04/17 06:00 02/04/17 06:00 - Medications Medications: Current Medications Acetaminophen (Tylenol 325mg Tab) 650 mg PO Q4H PRN; Protocol PRN Reason: Pain, moderate (4-7) Atenolol (Tenormin) 25 mg PO DAILY [facility] PRN Reason: Protocol Last Admin: 02/03/17 11:15 Dose: 25 mg Docusate Sodium (Colace) 100 mg PO TID [facility] PRN Reason: Protocol Last Admin: 02/04/17 09:47 Dose: 100 mg Latanoprost (Xalatan Opht) 0 ml OU HS [facility] PRN Reason: Protocol Last Admin: 02/03/17 21:37 Dose: 2.5 ml Levothyroxine Sodium (Synthroid) 75 mcg PO 0600 [facility] PRN Reason: Protocol Last Admin: 02/04/17 05:34 Dose: 75 mcg Nystatin (Nystop Topical Powder) 1 gm TOP BID [facility] PRN Reason: Protocol Last Admin: 02/04/17 09:48 Dose: 1 pow Pantoprazole Sodium (Protonix Ec Tab) 20 mg PO 0600 [facility] PRN Reason: Protocol Last Admin: 02/04/17 05:35 Dose: 20 mg Ursodiol (Actigall) 300 mg PO BID [facility] PRN Reason: Protocol Last Admin: 02/04/17 09:47 Dose: 300 mg - Labs Labs: 02/04/17 06:40 02/04/17 06:40 - Constitutional Appears: Well - Respiratory Exam Respiratory Exam: NORMAL BREATHING PATTERN - Cardiovascular Exam Cardiovascular Exam: REGULAR RHYTHM - GI/Abdominal Exam GI & Abdominal Exam: Normal Bowel Sounds - Extremities Exam Extremities Exam: Normal Inspection Additional comments: Less joint swelling - Neurological Exam Neurological Exam: Oriented x3 Assessment and Plan - Assessment and Plan (Free Text) Assessment: Constipation as per GI prtocol Arthritis,gait disorder continue PT Follow up labs Patient encouraged to ambulate with PT
[2017-02-04] MEDS: Latanoprost 2.5 ml Opht Soln OU SCH (21:57)
[2017-02-05] MEDS: Levothyroxine 75 MCG TAB PO SCH (05:30)
[2017-02-05] MEDS: Pantoprazole 20 mg EC Tab PO SCH (05:30)
[2017-02-05 07:24] LABS: BLOOD UREA NITROGEN 12 mg/dL (7-21); CALCIUM 9.4 mg/dL (8.4-10.5); GFR AFRICAN-AMERICAN > 60; GFR NON-AFRICAN AMERICAN > 60
[2017-02-05] MEDS: Nystatin 100,000 Units/gm Topical Pow(15 gm) TOP SCH ×2 (09:24→17:33)
--- NOTE | 2017-02-05 11:25 | CP.PCM.PN ---
Subjective - Date & Time of Evaluation Date of Evaluation: 02/05/17 Time of Evaluation: 09:00 - Subjective Subjective: Feeling better Objective - Vital Signs/Intake and Output Vital Signs (last 24 hours): Temp Pulse Resp BP Pulse Ox 97.9 F 73 20 113/53 L 100 02/05/17 10:50 02/05/17 10:50 02/05/17 10:50 02/05/17 10:50 02/04/17 06:00 - Medications Medications: Current Medications Acetaminophen (Tylenol 325mg Tab) 650 mg PO Q4H PRN; Protocol PRN Reason: Pain, moderate (4-7) Atenolol (Tenormin) 25 mg PO DAILY [facility] PRN Reason: Protocol Last Admin: 02/05/17 09:24 Dose: 25 mg Docusate Sodium (Colace) 100 mg PO TID [facility] PRN Reason: Protocol Last Admin: 02/05/17 09:23 Dose: 100 mg Latanoprost (Xalatan Opht) 0 ml OU HS [facility] PRN Reason: Protocol Last Admin: 02/04/17 21:57 Dose: 2.5 ml Levothyroxine Sodium (Synthroid) 75 mcg PO 0600 [facility] PRN Reason: Protocol Last Admin: 02/05/17 05:30 Dose: 75 mcg Nystatin (Nystop Topical Powder) 1 gm TOP BID [facility] PRN Reason: Protocol Last Admin: 02/05/17 09:24 Dose: 1 applic Pantoprazole Sodium (Protonix Ec Tab) 20 mg PO 0600 [facility] PRN Reason: Protocol Last Admin: 02/05/17 05:30 Dose: 20 mg Ursodiol (Actigall) 300 mg PO BID [facility] PRN Reason: Protocol Last Admin: 02/05/17 09:23 Dose: 300 mg - Labs Labs: 02/04/17 06:40 02/05/17 06:40 - Respiratory Exam Respiratory Exam: NORMAL BREATHING PATTERN - Cardiovascular Exam Cardiovascular Exam: REGULAR RHYTHM - GI/Abdominal Exam GI & Abdominal Exam: Normal Bowel Sounds Assessment and Plan - Assessment and Plan (Free Text) Assessment: Continue physical therapy. Moving bowels Discussed with patient benefits of ambulation and fluid intake
[2017-02-05] MEDS: Latanoprost 2.5 ml Opht Soln OU SCH (21:15)
[2017-02-06] MEDS: Levothyroxine 75 MCG TAB PO SCH (05:41)
[2017-02-06] MEDS: Pantoprazole 20 mg EC Tab PO SCH (05:41)
--- NOTE | 2017-02-06 08:07 | PCM.URO ---
Urology Progress Note - Objective Intake & Output: Intake & Output 02/05/17 02/06/17 02/06/17 18:59 06:59 18:59 Other: Voiding Method Toilet Toilet Vital Signs: Vital Signs - 24 hr 02/05/17 02/05/17 09:24 10:50 Temperature 97.9 F Pulse Rate 73 Respiratory 20 Rate Blood Pressure 112/54 L 113/53 L
[2017-02-06] MEDS: Nystatin 100,000 Units/gm Topical Pow(15 gm) TOP SCH ×2 (10:16→17:30)
[2017-02-06 10:36] VITALS: RESP 18
[2017-02-06] MEDS: Latanoprost 2.5 ml Opht Soln OU SCH (21:43)
[2017-02-07] MEDS: Levothyroxine 75 MCG TAB PO SCH (05:54)
[2017-02-07] MEDS: Pantoprazole 20 mg EC Tab PO SCH (05:54)
[2017-02-07] MEDS: Nystatin 100,000 Units/gm Topical Pow(15 gm) TOP SCH ×2 (10:41→17:35)
[2017-02-07] MEDS: Latanoprost 2.5 ml Opht Soln OU SCH (21:17)
[2017-02-08] MEDS: Levothyroxine 75 MCG TAB PO SCH (05:08)
[2017-02-08] MEDS: Pantoprazole 20 mg EC Tab PO SCH (05:08)
[2017-02-08] MEDS: Nystatin 100,000 Units/gm Topical Pow(15 gm) TOP SCH ×2 (10:18→18:31)
[2017-02-08 11:18] VITALS: O2SAT 98
--- NOTE | 2017-02-08 12:18 | CP.PCM.PN ---
Subjective - Date & Time of Evaluation Date of Evaluation: 02/08/17 Time of Evaluation: 09:10 - Subjective Subjective: S&E, chart reviewed. Having BM, formed, no bleeding, no abdominal pain. No new complaints. Objective - Vital Signs/Intake and Output Vital Signs (last 24 hours): Temp Pulse Resp BP Pulse Ox 98.2 F 112 H 18 109/65 98 02/08/17 10:00 02/08/17 10:18 02/08/17 10:00 02/08/17 10:18 02/08/17 10:00 - Medications Medications: Current Medications Acetaminophen (Tylenol 325mg Tab) 650 mg PO Q4H PRN; Protocol PRN Reason: Pain, moderate (4-7) Atenolol (Tenormin) 25 mg PO DAILY [facility] PRN Reason: Protocol Last Admin: 02/08/17 10:18 Dose: 25 mg Docusate Sodium (Colace) 100 mg PO TID [facility] PRN Reason: Protocol Last Admin: 02/08/17 10:15 Dose: Not Given Latanoprost (Xalatan Opht) 0 ml OU HS [facility] PRN Reason: Protocol Last Admin: 02/07/17 21:17 Dose: 2.5 ml Levothyroxine Sodium (Synthroid) 75 mcg PO 0600 [facility] PRN Reason: Protocol Last Admin: 02/08/17 05:08 Dose: 75 mcg Nystatin (Nystop Topical Powder) 1 gm TOP BID [facility] PRN Reason: Protocol Last Admin: 02/08/17 10:18 Dose: Not Given Pantoprazole Sodium (Protonix Ec Tab) 20 mg PO 0600 [facility] PRN Reason: Protocol Last Admin: 02/08/17 05:08 Dose: 20 mg Ursodiol (Actigall) 300 mg PO BID [facility] PRN Reason: Protocol Last Admin: 02/08/17 10:15 Dose: 300 mg - Labs Labs: 02/04/17 06:40 02/05/17 06:40 - Constitutional Appears: No Acute Distress - Head Exam Head Exam: NORMOCEPHALIC - Eye Exam Eye Exam: Normal appearance. absent: Scleral icterus - ENT Exam ENT Exam: Mucous Membranes Moist - Neck Exam Neck Exam: Normal Inspection - Respiratory Exam Respiratory Exam: NORMAL BREATHING PATTERN. absent: Respiratory Distress - Cardiovascular Exam Cardiovascular Exam: +S1, +S2 - GI/Abdominal Exam GI & Abdominal Exam: Soft, Normal Bowel Sounds. absent: Guarding, Tenderness, Rebound - Extremities Exam Extremities Exam: absent: Calf Tenderness, Pedal Edema - Neurological Exam Neurological Exam: Alert, Awake, Oriented x3 - Skin Skin Exam: Dry, Warm Assessment and Plan - Assessment and Plan (Free Text) Assessment: SSESSMENT: Severe Consitpation/Sterocolitis, resloved Resolved Urinary retention, de jesus removed and voiding Large H/H paraesophageal Right knee pain, improving H/O Ascending cholangitis, had ERCP with stent in the past H/O elevated LFT maybe secondary to sludge H/O cholecystectomy PLAN: puree diet continue PPI continue Actigall continue Colace TID, hold for loose stools Seen and discussed w/ Dr. Smith.
[2017-02-08] MEDS: Latanoprost 2.5 ml Opht Soln OU SCH (21:09)
[2017-02-09] MEDS: Levothyroxine 75 MCG TAB PO SCH (05:01)
[2017-02-09] MEDS: Pantoprazole 20 mg EC Tab PO SCH (05:01)
--- NOTE | 2017-02-09 06:20 | PCM.URO ---
Urology Progress Note - Objective Intake & Output: Intake & Output 02/08/17 02/08/17 02/09/17 06:59 18:59 06:59 Other: Voiding Method Toilet Toilet Vital Signs: Vital Signs - 24 hr 02/08/17 02/08/17 02/08/17 10:00 10:18 16:00 Temperature 98.2 F 97.4 F L Pulse Rate 112 H 112 H 73 Respiratory 18 18 Rate Blood Pressure 109/65 109/65 105/70 O2 Sat by Pulse 98 Oximetry
[2017-02-09 10:26] VITALS: BP 96/60; PULSE 80; TEMP 98.3
--- NOTE | 2017-02-09 19:06 | CP.PCM.DIS ---
Provider - Provider Date of Admission: 02/02/17 16:55 Pt feels well. No pain. Eating ok. Going to be disharged home today. Spoke to Dr Mack. Attending physician: Elva Mack MD Primary care physician: Elva Mack MD Time Spent in preparation of Discharge (in minutes): 15 Hospital Course - Lab Results Lab Results: Most Recent Lab Values WBC 5.6 10^3/ul (4.5-11.0) D 02/04/17 06:40 RBC 4.62 10^6/uL (3.5-6.1) 02/04/17 06:40 Hgb 14.6 gm/dL (12.0-16.0) 02/04/17 06:40 Hct 43.9 % (36.0-48.0) 02/04/17 06:40 MCV 95.0 fL (80.0-105.0) 02/04/17 06:40 MCH 31.6 pg (25.0-35.0) 02/04/17 06:40 MCHC 33.3 g/dl (31.0-37.0) 02/04/17 06:40 RDW 14.0 % (11.5-14.5) 02/04/17 06:40 Plt Count 278 10^3/uL (120.0-450.0) 02/04/17 06:40 MPV 11.5 fl (7.0-11.0) H 02/04/17 06:40 Gran % 58.6 % (50.0-68.0) 02/04/17 06:40 Lymph % (Auto) 32.6 % (22.0-35.0) 02/04/17 06:40 [place]mer % (Auto) 7.6 % (1.0-6.0) H 02/04/17 06:40 Eos % (Auto) 0.7 % (1.5-5.0) L 02/04/17 06:40 Baso % (Auto) 0.5 % (0.0-3.0) 02/04/17 06:40 Gran # 3.30 (1.4-6.5) 02/04/17 06:40 Lymph # 1.8 (1.2-3.4) 02/04/17 06:40 [place] # 0.4 (0.1-0.6) 02/04/17 06:40 Eos # 0.0 (0.0-0.7) 02/04/17 06:40 Baso # 0.03 K/mm3 (0.0-2.0) 02/04/17 06:40 Sodium 137 mmol/L (132-148) 02/05/17 06:40 Potassium 4.6 mmol/L (3.6-5.0) 02/05/17 06:40 Chloride 101 mmol/L (98-107) 02/05/17 06:40 Carbon Dioxide 29 mmol/L (21-33) 02/05/17 06:40 Anion Gap 12 (10-20) 02/05/17 06:40 BUN 12 mg/dL (7-21) 02/05/17 06:40 Creatinine 0.8 mg/dL (0.5-1.4) 02/05/17 06:40 Est GFR ( Amer) > 60 02/05/17 06:40 Est GFR (Non-Af Amer) > 60 02/05/17 06:40 Random Glucose 88 mg/dL (70-110) 02/05/17 06:40 Calcium 9.4 mg/dL (8.4-10.5) 02/05/17 06:40 Total Bilirubin 0.7 mg/dL (0.2-1.3) 02/04/17 06:40 AST 24 U/L (15-39) 02/04/17 06:40 ALT 16 U/L (7-56) 02/04/17 06:40 Alkaline Phosphatase 81 U/L (38-133) 02/04/17 06:40 Total Protein 6.7 g/dL (5.8-8.3) 02/04/17 06:40 Albumin 3.7 g/dL (3.0-4.8) 02/04/17 06:40 Globulin 3.0 gm/dL 02/04/17 06:40 Albumin/Globulin Ratio 1.2 (1.1-1.8) 02/04/17 06:40 - Hospital Course Hospital Course: Pt feels well and eating ok. Walking better. No pain. Discharge Exam - Head Exam Head Exam: NORMOCEPHALIC - Eye Exam Eye Exam: Normal appearance Pupil Exam: NORMAL ACCOMODATION - Neck Exam Neck exam: Lymphadenopathy - Cardiovascular Exam Cardiovascular Exam: REGULAR RHYTHM, RRR, +S1, +S2 - GI/Abdominal Exam GI & Abdominal Exam: Normal Bowel Sounds. absent: Pulsatile Mass, Soft, Tenderness - Psychiatric Exam Psychiatric exam: Normal Affect, Normal Mood - Skin Skin Exam: Normal Color Discharge Plan - Follow Up Plan Condition: IMPROVED Disposition: HOME/ ROUTINE Instructions: COPD (Chronic Obstructive Pulmonary Disease) (DC), Acute Abdominal Pain (DC), Hypertension (DC), Constipation (DC), Constipation (GEN) Referrals: Elva Mack MD [Primary Care Provider] -
== END 2017-02-09 12:42 | disposition home or self-care (01) | DRG 392 ==
LOC: TRCU 16:55
PROVIDERS: ADMIT Internal Medicine; ATTEND Internal Medicine
PROC: F07Z9FZ Gait Training/Functional Ambulation Treatment using Assistive, Adaptive, Supportive or Protective Equipment (ICD-10-PCS; principal; 2017-02-03)
PROC: F07M6ZZ Therapeutic Exercise Treatment of Musculoskeletal System - Whole Body (ICD-10-PCS; 2017-02-03)
PROC: F08Z4ZZ Home Management Treatment (ICD-10-PCS; 2017-02-03)
DX: K52.89 Other specified noninfective gastroenteritis and colitis (principal); J44.9 Chronic obstructive pulmonary disease, unspecified; E53.8 Deficiency of other specified B group vitamins; E03.9 Hypothyroidism, unspecified; I25.10 Atherosclerotic heart disease of native coronary artery without angina pectoris; K59.00 Constipation, unspecified; R26.9 Unspecified abnormalities of gait and mobility; Z88.7 Allergy status to serum and vaccine; Z88.8 Allergy status to other drugs, medicaments and biological substances; Z90.49 Acquired absence of other specified parts of digestive tract; N28.9 Disorder of kidney and ureter, unspecified; E78.5 Hyperlipidemia, unspecified; M17.0 Bilateral primary osteoarthritis of knee; I10 Essential (primary) hypertension; R33.9 Retention of urine, unspecified; K44.9 Diaphragmatic hernia without obstruction or gangrene

== ENCOUNTER 2017-05-05 13:43 | Inpatient (IN) | payer MEDICARE ==
[2017-05-05 13:53] VITALS: BMI 18.8
[2017-05-05] MEDS ORDERED: Sodium Chloride 0.9% 1,000 ML IV STA (14:23)
--- NOTE | 2017-05-05 14:29 | ED PDOC ---
Arrival/HPI - General Chief Complaint: Shortness Of Breath Time Seen by Provider: 05/05/17 13:52 - History of Present Illness Narrative History of Present Illness (Text): 05/05/17 14:20 A 86 year old female, whose past medical history includes hypertension and hyperlipidemia, presents to the emergency department complaining of body aches, abdominal pain, and shortness of breath. Patient reports she hasn't been feeling well lately and is losing her voice. Patient notes experiencing subjective fever and chills, but denies of any diarrhea, dysuria, or any other complaints. Also, patient mentions she has taken no medications for symptoms. PMD: Dr. Elva Mack Past Medical History - Provider Review Nursing Documentation Reviewed: Yes - Infectious Disease Hx of Infectious Diseases: None - Cardiac Hx Cardiac Disorders: Yes Hx Hypertension: Yes - Pulmonary Hx Chronic Obstructive Pulmonary Disease (COPD): Yes - Neurological Hx Neurological Disorder: Yes Hx Dizziness: Yes - HEENT Hx HEENT Disorder: Yes (WEARS RX GLASSES, AKHIOK) Hx Cataracts: Yes Hx Glaucoma: Yes - Renal Hx Renal Disorder: No - Endocrine/Metabolic Hx Hypothyroidism: Yes - Hematological/Oncological Hx Blood Disorders: No - Integumentary Hx Dermatological Disorder: No - Musculoskeletal/Rheumatological Hx Falls: Yes - Gastrointestinal Hx Gastrointestinal Disorders: Yes (COLITIS,POOR APPETITE,CONSTIPATION, CHOLECYSTECTOMY,APPENDECTOMY) - Genitourinary/Gynecological Hx Genitourinary Disorders: No - Psychiatric Hx Psychophysiologic Disorder: No Hx Depression: No Hx Emotional Abuse: No Hx Physical Abuse: No Hx Substance Use: No - Surgical History Hx Appendectomy: Yes Hx Cholecystectomy: Yes Other/Comment: r breast cyst removed - Anesthesia Hx Anesthesia: Yes - Suicidal Assessment Feels Threatened In Home Enviroment: No Family/Social History - Physician Review Nursing Documentation Reviewed: Yes Family/Social History: No Known Family HX Smoking Status: Former Smoker Hx Alcohol Use: No Hx Substance Use: No Hx Substance Use Treatment: No Allergies/Home Meds Allergies/Adverse Reactions: Allergies cortisone Allergy (Verified 02/02/17 18:25) RASH iodine Allergy (Verified 02/02/17 18:25) RASH cortisone Allergy (Uncoded 02/02/17 18:25) SWELLING flu vaccine Allergy (Uncoded 02/02/17 18:25) RASH Home Medications: Home Meds Medication Instructions Recorded Confirmed Bimatoprost [Lumigan] 1 drop OP HS 04/16/12 05/05/17 Review of Systems - Physician Review All systems were reviewed & negative as marked: Yes - Review of Systems Gastrointestinal: absent: Diarrhea Genitourinary Female: absent: Dysuria Physical Exam - Physical Exam Narrative Physical Exam (Text): Constitutional: No acute distress. Head: Normocephalic. Atraumatic. Eyes: PERRL. ENT: Moist mucous membranes. Neck: Supple. Cardiovascular: Regular rate. Chest: No tenderness. Respiratory: Clear to auscultation bilaterally. GI: RLQ tenderness, no rebound or guarding. Back: No CVA tenderness. Musculoskeletal: No tenderness or swelling of extremities. Skin: No rash. Neurologic: Alert, no focal deficit. Vital Signs Reviewed: Yes Vital Signs Temp Pulse Resp BP Pulse Ox 05/05/17 21:02 89 18 119/57 L 99 05/05/17 18:30 90 19 118/64 98 05/05/17 17:00 89 18 128/69 96 05/05/17 15:00 96 H 18 131/74 96 05/05/17 13:55 97.9 F 19 05/05/17 13:44 106 H 19 133/78 95 Temperature: Afebrile Blood Pressure: Normal Pulse: Tachycardic Respiratory Rate: Normal Appearance: Positive for: Well-Appearing Pain Distress: None Mental Status: Positive for: Alert and Oriented X 3 Medical Decision Making ED Course and Treatment: 05/05/17 14:24 Impression: 86 year old female with shortness of breath, abdominal pain, and lower back pain. Physical exam shows RLQ tenderness, no rebound or guarding. Plan: -- EKG -- Chest X-ray -- Abd/Pelvis CT -- Labs -- Urinalysis -- Toradol -- Zofran -- IV Fluids -- Blood Culture -- Urine Culture -- Blood Gas -- Reassess and disposition Prior Visits: Notes and results from previous visits were reviewed. Patient was last seen on 01/28/2017 for lower abdominal pain with associated constipation. Patient was admitted. Progress Notes: 05/05/2017 15:24 Chest X-ray IMPRESSION: No active pulmonary disease. COPD. Dictator: Giovana Gallegos MD EKG: Ordered, reviewed, and independently interpreted the EKG. Rate : 114 BPM Rhythm : Sinus tachycardia Interpretation : No ST-segment elevations, RBBB. Comparison : No change from previous EKG. 05/05/2017 18:11 Abd/Pelvis CT IMPRESSION: Prior cholecystectomy with potentially related prominence of the central intra biliary duct system and the common bile duct without radiodense choledocholithiasis appreciated. Small splenic artery aneurysm suspected. No overall or reaction or fluid collection to suggest rupture of this heavily calcified structure. non acute sigmoid diverticulosis. Incidental left lower lobe infiltrate and worsening or bronchiectasis right lower lobe medially. Dictator: Topher Shaffer MD Patient with normal vital signs after gentle hydration. Antibiotics administered for pneumonia. CT shows CBD 12mm s/p gaby. Dr. Mack recommends Dr. Benjamin for admission. Dr. Benjamin accepts to his service. ICU consult placed, recommend telemetry admission at this time. - Lab Interpretations Lab Results: 05/05/17 14:30 05/05/17 14:30 Lab Results 05/05/17 18:30: pO2 88 H, VBG pH 7.18 L*, VBG pCO2 67.0 H*, VBG HCO3 25.0, VBG Total CO2 27.1, VBG O2 Sat (Calc) 98.0 H, VBG Base Excess -4.7 L, VBG Potassium 5.7 H, Sodium 136.0, Chloride 104.0, Glucose 117 H, Lactate 2.6 H, FiO2 21.0, Venous Blood Potassium 5.7 H 05/05/17 15:25: Urine Color Yellow, Urine Appearance Clear, Urine pH 6.0, Ur Specific [place] >= 1.030, Urine Protein 100 H, Urine Glucose (UA) Negative, Urine Ketones >=80, Urine Blood Negative, Urine Nitrate Negative, Urine Bilirubin Moderate H, Urine Urobilinogen 0.2, Ur Leukocyte Esterase Trace H, Urine RBC 0 - 2, Urine WBC 1 - 3, Ur Epithelial Cells 1 - 3, Urine Bacteria Few , Hyaline Casts 0 - 2 05/05/17 14:30: Sodium 138, Chloride 96 L, Potassium 4.7, Carbon Dioxide 21, Anion Gap 26 H, BUN 20, Creatinine 0.8, Est GFR ( Amer) > 60, Est GFR ( Non-Af Amer) > 60, Random Glucose 130 H, Calcium 10.0, Total Bilirubin 1.8 H, AST 26, ALT 20, Alkaline Phosphatase 115, Total Creatine Kinase 30 L, Troponin I < 0.01, NT-Pro-B Natriuret Pep 635 H, Total Protein 7.8, Albumin 4.4, Globulin 3.4, Albumin/Globulin Ratio 1.3, Lipase 166 05/05/17 14:30: pO2 25 L, VBG pH 7.23 L, VBG pCO2 53.0, VBG HCO3 22.2, VBG Total CO2 23.8, VBG O2 Sat (Calc) 50.0, VBG Base Excess -5.8 L, VBG Potassium 4.4, Sodium 134.0, Chloride 97.0 L, Glucose 126 H, Lactate 3.4 H, FiO2 21.0, Venous Blood Potassium 4.4 05/05/17 14:30: PT 13.5 H, INR 1.25 H, APTT 39.4 H 05/05/17 14:30: WBC 18.7 H D, RBC 4.54, Hgb 14.1, Hct 42.6, MCV 93.8, MCH 31.1, MCHC 33.1, RDW 13.0, Plt Count 256, MPV 11.2 H, Gran % 87.9 H, Lymph % (Auto) 4.9 L, Sharkey % (Auto) 6.9 H, Eos % (Auto) 0.1 L, Baso % (Auto) 0.2, Gran # 16.44 H, Lymph # 0.9 L, Sharkey # 1.3 H, Eos # 0.0, Baso # 0.03, Neutrophils % (Manual) 87 H, Band Neutrophils % 2, Lymphocytes % (Manual) 6 L, Monocytes % (Manual) 5, Large Platelets Present I have reviewed the lab results: Yes - RAD Interpretation Radiology Orders: 05/05/17 14:23 CHEST PORTABLE [RAD] Stat 05/05/17 15:07 ABD & PELVIS W/O PO OR IV CONT [CT] Stat - Medication Orders Current Medication Orders: Sodium Chloride (Sodium Chloride 0.9%) 1,000 mls @ 75 mls/hr IV .[id number] STA Stop: 05/06/17 03:42 Last Admin: 05/05/17 14:39 Dose: 75 mls/hr eMAR Start Stop Document 05/05/17 14:39 SF (Rec: 05/05/17 14:39 SF [email or web address]) Intravenous Solution Start Date 05/05/17 Start Time 14:39 Discontinued Medications Cefepime HCl (Maxipime 1gm) 1 gm in 100 mls @ 100 mls/hr IVPB STAT STA PRN Reason: Protocol Stop: 05/05/17 16:01 Last Admin: 05/05/17 15:28 Dose: 100 mls/hr eMAR Start Stop Document 05/05/17 15:28 SF (Rec: 05/05/17 15:28 SF [email or web address]) Intravenous Solution Start Date 05/05/17 Start Time 15:28 End Date 05/05/17 End time 16:28 Total Infusion Time 60 Vancomycin HCl (Vancomycin 1gm) 1 gm in 250 mls @ 167 mls/hr IVPB STAT STA PRN Reason: Protocol Stop: 05/05/17 16:31 Last Admin: 05/05/17 16:45 Dose: 167 mls/hr eMAR Start Stop Document 05/05/17 16:45 SF (Rec: 05/05/17 17:47 SF [email or web address]) Intravenous Solution Start Date 05/05/17 Start Time 16:45 End Date 05/05/17 End time 18:15 Total Infusion Time 90 Ketorolac Tromethamine (Toradol) 15 mg IVP STAT STA Stop: 05/05/17 14:24 Last Admin: 05/05/17 14:39 Dose: 15 mg MAR Pain Assessment Document 05/05/17 14:39 SF (Rec: 05/05/17 14:39 SF [id number] Pain Reassessment Is this a pain reassessment? Yes Sleep Is patient sleeping during reassessment? No Presence of Pain Presence of Pain Yes IVP Administration Document 05/05/17 14:39 SF (Rec: 05/05/17 14:39 SF [email or web address]) Charges for Administration # of IVP Administrations 1 Ondansetron HCl (Zofran Inj) 4 mg IVP STAT STA Stop: 05/05/17 14:24 Last Admin: 05/05/17 14:39 Dose: 4 mg IVP Administration Document 05/05/17 14:39 SF (Rec: 05/05/17 14:39 SF [id number] Charges for Administration # of IVP Administrations 1 ED OBSERVATION Date of observation admission: 05/05/17 Time of observation admission: 17:07 - Scribe Statement The provider has reviewed the documentation as recorded by the Alexandro Delaney Provider Alexandro Attestation: All medical record entries made by the Alexandro were at my direction and personally dictated by me. I have reviewed the chart and agree that the record accurately reflects my personal performance of the history, physical exam, medical decision making, and the department course for this patient. I have also personally directed, reviewed, and agree with the discharge instructions and disposition. Disposition/Present on Arrival - Present on Arrival Any Indicators Present on Arrival: No History of DVT/PE: No History of Uncontrolled Diabetes: No Urinary Catheter: No History of Decub. Ulcer: No History Surgical Site Infection Following: None - Disposition Have Diagnosis and Disposition been Completed?: Yes Diagnosis: Sepsis, Pneumonia Disposition: HOSPITALIZED Disposition Time: 17:07 Patient Plan: Admission, Telemetry Condition: GUARDED
[2017-05-05 14:41] LABS: VENOUS BLOOD GAS BASE EXCESS -5.8 mmol/L (0.0-2.0); VENOUS BLOOD PH 7.23 (7.32-7.43)
[2017-05-05 14:44] LABS: BASO # 0.03 K/mm3 (0.0-2.0); BASO % 0.2 % (0.0-3.0); EOS % 0.1 % (1.5-5.0); GRAN # 16.44 (1.4-6.5); GRAN % 87.9 % (50.0-68.0); HEMATOCRIT 42.6 % (36.0-48.0); LYMPH # 0.9 (1.2-3.4); LYMPH % 4.9 % (22.0-35.0); MEAN CELL VOLUME 93.8 fl (80.0-105.0); MEAN CORPUSCULAR HEMOGLOBIN 31.1 pg (25.0-35.0); MEAN CORPUSCULAR HGB CONC 33.1 g/dl (31.0-37.0); MEAN PLATELET VOLUME 11.2 fl (7.0-11.0); MONO # 1.3 (0.1-0.6); MONO % 6.9 % (1.0-6.0); PLATELET COUNT 256 10^3/uL (120.0-450.0); WHITE BLOOD COUNT 18.7 10^3/ul (4.5-11.0)
[2017-05-05 14:52] LABS: ALB/GLOB RATIO 1.3 (1.1-1.8); ALKALINE PHOSPHATASE 115 U/L (38-126); ALT/SGPT 20 U/L (7-56); AST/SGOT 26 U/L (14-36); BILIRUBIN,TOTAL 1.8 mg/dL (0.2-1.3); BLOOD UREA NITROGEN 20 mg/dL (7-21); CARBON DIOXIDE 21 mmol/L (21-33); CHLORIDE 96 mmol/L (98-107); GFR AFRICAN-AMERICAN > 60; GLUCOSE,RANDOM 130 mg/dL (70-110); INR 1.25 (0.93-1.08); LIPASE 166 U/L (23-300); PARTIAL THROMBOPLASTIN TIME 39.4 Seconds (23.7-30.8); POTASSIUM 4.7 mmol/L (3.6-5.0); SODIUM 138 mmol/L (132-148); TOTAL PROTEIN 7.8 g/dL (5.8-8.3)
[2017-05-05] MEDS ORDERED: Cefepime 1gm in NS 100ml 1 GM/100 ML BAG IVPB STA (15:02)
[2017-05-05] MEDS ORDERED: Vancomycin 1gm in NS 250ml 1 GM/250 ML BAG IVPB STA (15:02)
[2017-05-05 15:15] LABS: TROPONIN I < 0.01 ng/mL
[2017-05-05 15:24] LABS: BAND 2 % (0-2); NEUTROPHIL 87 % (50.0-70.0)
[2017-05-05 15:25] LABS: LARGE PLATELETS PRESENT
--- NOTE | 2017-05-05 15:26 | RAD ---
HISTORY: Dyspnea COMPARISON: 12/14/2015. FINDINGS: LUNGS: The lungs are hyperinflated and there is peribronchial thickening with chronic changes in both lungs. No focal consolidation. PLEURA: No significant pleural effusion identified, no pneumothorax apparent. CARDIOVASCULAR: Normal. OSSEOUS STRUCTURES: No significant abnormalities. VISUALIZED UPPER ABDOMEN: Normal. OTHER FINDINGS: None. IMPRESSION: No active pulmonary disease. COPD.
[2017-05-05 15:35] LABS: URINE BILIRUBIN MODERATE (NEGATIVE); URINE BLOOD NEGATIVE (NEGATIVE); URINE GLUCOSE (UA) NEGATIVE (NEGATIVE); URINE KETONE >=80 mg/dL (NEGATIVE); URINE LEUKOCYTE ESTERASE TRACE Leu/uL (NEGATIVE); URINE PROTEIN 100 mg/dL (<30 mg/dL); URINE UROBILINOGEN 0.2 E.U./dL (<1 E.U./dL)
[2017-05-05 15:46] LABS: URINE APPEARANCE CLEAR (CLEAR); URINE COLOR YELLOW (YELLOW)
[2017-05-05 15:48] LABS: URINE RBC 0 - 2 /hpf (0-2)
[2017-05-05 15:49] LABS: URINE BACTERIA FEW (NEG)
[2017-05-05] MEDS ORDERED: Iohexol 350 MG/100 ML VIAL ONE (17:29)
--- NOTE | 2017-05-05 18:13 | CT ---
PROCEDURE: CT Abdomen and Pelvis without intravenous contrast HISTORY: abdominal pain COMPARISON: Abdomen pelvis CT without contrast 01/28/2017. TECHNIQUE: Helical CT of the abdomen and pelvis was performed without oral or intravenous contrast as per referring physician request .. Contrast Dose: None Radiation dose: Total exam DLP = 223.11 mGy-cm. This CT exam was performed using one or more of the following dose reduction techniques: Automated exposure control, adjustment of the mA and/or kV according to patient size, and/or use of iterative reconstruction technique. FINDINGS: LOWER THORAX: Interval reticulonodular infiltrates in the left lower lobe with increased bronchiectasis the medial right lung base. There is a moderate-sized hiatal hernia. LIVER: No focal hepatic mass in this unenhanced exam. Central intrahepatic biliary tree is dilated, likely is a function of prior cholecystectomy. Clinically correlate nevertheless. GALLBLADDER AND BILE DUCTS: Prior cholecystectomy. Proximal common bile duct is dilated to 12 mm tapering to for distally. No radiodense choledocholithiasis. PANCREAS: Unremarkable. No gross lesion or ductal dilatation. 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 ADRENALS: Unremarkable. No mass. KIDNEYS AND URETERS: Unremarkable. No hydronephrosis. No solid mass. VASCULATURE: Unremarkable. No aortic aneurysm. BOWEL: Sigmoid diverticulosis without acute changes related. No obstruction. No gross mural thickening. APPENDIX: Not clearly identified however there is no CT pattern suggest appendicitis at this time. PERITONEUM: Unremarkable. No free fluid. No free air. LYMPH NODES: Unremarkable. No enlarged lymph nodes. BLADDER: Unremarkable. REPRODUCTIVE: Unremarkable. BONES: Grade 1 spondylolisthesis, L4-5. OTHER FINDINGS: None. IMPRESSION: Prior cholecystectomy with potentially related prominence of the central intra biliary duct system and the common bile duct without radiodense choledocholithiasis appreciated. Small splenic artery aneurysm suspected. No overall or reaction or fluid collection to suggest rupture of this heavily calcified structure Non acute sigmoid diverticulosis Incidental left lower lobe infiltrate and worsening or bronchiectasis right lower lobe medially.
[2017-05-05 18:52] LABS: VENOUS BLOOD GAS BASE EXCESS -4.7 mmol/L (0.0-2.0)
[2017-05-05 18:55] LABS: VENOUS BLOOD PH 7.18 (7.32-7.43)
--- NOTE | 2017-05-05 20:52 | CP.PCM.CON ---
History of Present Illness - History of Present Illness History of Present Illness: Reason for ICU Consult: worsened pH on VBG HPI: 86 y/o female with a PMHx Htn, Dyslipidema, GERD, hypothyroidism who presented to the ED with the complaint of lethargy and weakness which has been ongoing for the past 3 days. She also reports having a cough with white sputum and feeling nauseous with dry heaves. She denies any complaint of fever, chills , diarrhea, headache, vomiting, diaphoresis, light headedness or dizziness. She states that she was told she had a urinary tract infection in the ER as well as a left lower lobe pneumonia. She reports feeling better since coming to the hospital and receiving IV Abx and IV Fluid. She is offering no new complaints at this time apart from what is mentioned above. She was treated with IV Antibiotics as well as IVF as per code sepsis protocol upon arriving to the ED. PMHx: htn dyslipidemia hypothyroid hiatal hernia Allergies: cortisone injection; iodine from contrast dye Fam Hx: reviewed and noncontributory Soc Hx: denies tobacco/alcohol; lives by herself above her son in an apartment building ; ambulates using a cane/walker Meds: see med rec Review of Systems - Review of Systems Review of Systems: As per HPI Past Patient History - Infectious Disease Hx of Infectious Diseases: None - Past Social History Smoking Status: Former Smoker Alcohol: None Home Situation {Lives}: Alone - CARDIAC Hx Cardiac Disorders: Yes Hx Hypertension: Yes - PULMONARY Hx Chronic Obstructive Pulmonary Disease (COPD): Yes - NEUROLOGICAL Hx Neurological Disorder: Yes Hx Dizziness: Yes - HEENT Hx HEENT Problems: Yes (WEARS RX GLASSES, ZUNI) Hx Cataracts: Yes Hx Glaucoma: Yes - RENAL Hx Chronic Kidney Disease: No - ENDOCRINE/METABOLIC Hx Hypothyroidism: Yes - HEMATOLOGICAL/ONCOLOGICAL Hx Blood Disorders: No - INTEGUMENTARY Hx Dermatological Problems: No - MUSCULOSKELETAL/RHEUMATOLOGICAL Hx Falls: Yes - GASTROINTESTINAL Hx Gastrointestinal Disorders: Yes (COLITIS,POOR APPETITE,CONSTIPATION, CHOLECYSTECTOMY,APPENDECTOMY) - GENITOURINARY/GYNECOLOGICAL Hx Genitourinary Disorders: No - PSYCHIATRIC Hx Psychophysiologic Disorder: No Hx Depression: No Hx Emotional Abuse: No Hx Physical Abuse: No Hx Substance Use: No - SURGICAL HISTORY Hx Appendectomy: Yes Hx Cholecystectomy: Yes Other/Comment: r breast cyst removed - ANESTHESIA Hx Anesthesia: Yes Meds Allergies/Adverse Reactions: Allergies Allergy/AdvReac Type Severity Reaction Status Date / Time cortisone Allergy RASH Verified 02/02/17 18:25 iodine Allergy RASH Verified 02/02/17 18:25 cortisone Allergy SWELLING Uncoded 02/02/17 18:25 flu vaccine Allergy RASH Uncoded 02/02/17 18:25 - Medications Medications: Current Medications Sodium Chloride (Sodium Chloride 0.9%) 1,000 mls @ 75 mls/hr IV .[id number] STA Stop: 05/06/17 03:42 Last Admin: 05/05/17 14:39 Dose: 75 mls/hr Physical Exam - Constitutional Appears: Well, Non-toxic, No Acute Distress - Head Exam Head Exam: ATRAUMATIC, NORMOCEPHALIC - Eye Exam Eye Exam: EOMI, Normal appearance - ENT Exam ENT Exam: Mucous Membranes Moist, Normal Exam - Respiratory Exam Respiratory Exam: Clear to Auscultation Bilateral, NORMAL BREATHING PATTERN. absent: Rhonchi, Wheezes - Cardiovascular Exam Cardiovascular Exam: REGULAR RHYTHM, +S1, +S2. absent: Systolic Murmur - GI/Abdominal Exam GI & Abdominal Exam: Soft. absent: Guarding, Rebound, Tenderness - Rectal Exam Rectal Exam: Deferred - Extremities Exam Extremities exam: Positive for: normal inspection. Negative for: calf tenderness - Neurological Exam Neurological exam: Alert, Oriented x3 - Psychiatric Exam Psychiatric exam: Normal Affect, Normal Mood - Skin Skin Exam: Dry, Intact, Normal Color, Warm Results - Vital Signs Recent Vital Signs: Last Vital Signs Temp 97.9 F 05/05/17 13:55 Pulse 90 05/05/17 18:30 Resp 19 05/05/17 18:30 BP 118/64 05/05/17 18:30 Pulse Ox 98 05/05/17 18:30 - Labs Result Diagrams: 05/05/17 14:30 05/05/17 14:30 - Imaging and Cardiology CT scan - chest Status: Image reviewed by me (left lower lobe infiltrate; right middle lobe bronchiectasis/infiltrate) Assessment & Plan - Assessment and Plan (Free Text) Assessment: 86 y/o female with a PMHx Htn, dyslipidemia, hypothyroidism, hiatal hernia who presents to the ED with 2-3 days of lethargy and nausea. Through workup in the ED she is found to have a UTI along with possible bilateral pneumonia. Her Curb -65 score is 1-2 and her PSI/Port Score is 76 both indicating low risk mortality from pneumonia. She is hemodynamically stable and comfortable on 2 oxygen via nasal cannula at this time. She does not require aggressive ICU level management and may be admitted to the hospital to a medical floor for further management and treatment of her UTI/CAP. Case discussed with Dr. Mike all labs and images thus far have been reviewed personally In the event that her condition worsens overnight, I will be available for re- evaluation as needed until 7am.
[2017-05-05] MEDS: Latanoprost 2.5 ml Opht Soln OU SCH (22:00)
[2017-05-05] MEDS ORDERED: Latanoprost 2.5 ml Opht Soln OU SCH (22:00)
--- NOTE | 2017-05-05 22:03 | PCM.SEPTIC ---
Sepsis Progress Note - Reassessment Type Date of Evaluation: 05/05/17 Time of Evaluation: 21:00 Reassessment Type: Non-invasive reassessment - Non Invasive Reassessment Were the most recent vital sign reviewed: Yes Vital Sign (Latest): Temp Pulse Resp BP Pulse Ox 97.9 F 89 17 119/57 L 95 05/05/17 13:55 05/05/17 21:02 05/05/17 21:46 05/05/17 21:02 05/05/17 21:46 Cardiovascular: Yes: Regular Rate, Rhythm. No: Murmur, Bradycardia, Tachycardia , Irregularly Irregular Respiratory: Yes: Normal Breath Sounds, Rales (faint rales at bilateral bases L> R). No: Rhonchi, Stridor, Wheezing, Respiratory Distress Capillary Refill: Normal (Less than 2 sec) Pulses: Normal Radial, Normal Dorsalis Pedis, Absent Posterior Tibialis (unable to palpate) Skin: Normal Color, Warm
[2017-05-06] MEDS: Vancomycin 1gm in NS 250ml 1 GM/250 ML BAG IVPB SCH ×3 (00:03→23:30)
[2017-05-06] MEDS: Meropenem 1g/NS 100mL IVPB 1 GM/100 ML PIGGYBACK IVPB SCH ×4 (01:44→23:00)
[2017-05-06 07:38] LABS: ALB/GLOB RATIO 1.1 (1.1-1.8); ALKALINE PHOSPHATASE 88 U/L (38-126); ALT/SGPT 24 U/L (7-56); AST/SGOT 22 U/L (14-36); BILIRUBIN,TOTAL 0.8 mg/dL (0.2-1.3); BLOOD UREA NITROGEN 23 mg/dL (7-21); CALCIUM 8.9 mg/dL (8.4-10.5); CARBON DIOXIDE 25 mmol/L (21-33); CHLORIDE 104 mmol/L (98-107); GFR AFRICAN-AMERICAN > 60; GLUCOSE,RANDOM 92 mg/dL (70-110); POTASSIUM 4.1 mmol/L (3.6-5.0); SODIUM 138 mmol/L (132-148)
[2017-05-06 07:50] LABS: HEMATOCRIT 35.3 % (36.0-48.0); MEAN CELL VOLUME 92.9 fl (80.0-105.0); MEAN CORPUSCULAR HEMOGLOBIN 30.3 pg (25.0-35.0); MEAN CORPUSCULAR HGB CONC 32.6 g/dl (31.0-37.0); MEAN PLATELET VOLUME 10.7 fl (7.0-11.0); RED CELL DISTRIBUTION WIDTH 13.2 % (11.5-14.5); WHITE BLOOD COUNT 13.6 10^3/ul (4.5-11.0)
[2017-05-06] MEDS: Levothyroxine 75 MCG TAB PO SCH (09:28)
--- NOTE | 2017-05-06 20:37 | CON ---
DATE: 05/06/2017 LOCATION: The patient is seen in room 275, bed 2. CHIEF COMPLAINT: Shortness of breath times several days. HISTORY OF PRESENT ILLNESS: This is an 86-year-old female patient of Dr. Mack with past medical history significant for chronic obstructive lung disease, hypertension, dyslipidemia, carotid artery disease, glaucoma, history of right breast cyst. The patient is an ex-smoker and high cholesterol, history of appendectomy, history of cholecystectomy, and right breast cyst removal. She is allergic to cortisone, iodine, and flu vaccine. Admitted through the emergency room with the diagnosis of abdominal pain. The patient's last hospitalization was in January. The patient denies any fever, any chills at this time. She is complaining of shortness of breath. No chest pain. She is complaining of abdominal pain, which she says has improved. She denies any dysuria or frequency, but she is having abdominal pain in the lower pelvic area and no headaches or blurred vision. PAST MEDICAL HISTORY: Significant for chronic obstructive lung disease, hypertension, high cholesterol, carotid artery disease, glaucoma, right breast cyst. PAST SURGICAL HISTORY: Significant for right breast cyst removal, cholecystectomy, appendectomy. ALLERGIES: INCLUDE CORTISONE, IODINE, AND FLU VACCINE. HOME MEDICATIONS: Include ursodiol, levothyroxine, and atenolol. PHYSICAL EXAMINATION: GENERAL: She is in bed, chronically ill, cachectic. VITAL SIGNS: BMI of only 17. Temperature of 98, blood pressure is 115/50, respiratory rate of 20, heart rate of 96, up to 103. HEENT: Unremarkable. NECK: Supple. HEART: Normal S1 and S2. LUNGS: Decreased breath sounds. ABDOMEN: Revealed mild pelvic tenderness. No rebound or guarding. LABORATORY DATA: Reveals a white count of 18,700, 87% granulocytosis, hemoglobin of 14, platelets of 256. Coagulation is noted. BUN of 23, creatinine of 0.7. Influenza is negative. Urinalysis reveals 1 to 3 wbc's, a few bacteria and the patient had a CAT scan of the abdomen and pelvis read by Dr. Topher Diehl whose reading is incidental left lower lobe infiltrates, some worsening bronchiectasis of right lower lobe, small splenic artery aneurysm suspected. The patient also had a chest x-ray, which revealed hyperinflation and peribronchial thickening. No focal consolidation. ASSESSMENT AND PLAN: This is an 86-year-old female with chronic obstructive lung disease, hypertension, high cholesterol, cataract, glaucoma, admitted with shortness of breath, abdominal discomfort, unremarkable urinalysis what appears to be a recent hospitalization at the end of January, almost in February with sepsis with healthcare-associated pneumonia, left-sided more so, which was positive on the CAT scan of the abdomen. We will check on her blood cultures, urine cultures, Legionella antigen, procalcitonin, currently on doxycycline, and the patient was given vancomycin, cefepime, meropenem. The patient is now on vancomycin, meropenem, and doxycycline. We will check on the donald culture results. Overall, long-term prognosis is quite poor. We will follow closely with you. Gonsalo Whipple MD
[2017-05-07] MEDS: Latanoprost 2.5 ml Opht Soln OU SCH ×2 (02:24→21:38)
--- NOTE | 2017-05-07 08:16 | CARD ---
APPROVED REPORT EKG Measurement Heart [id number] <Conclusion> Sinus tachycardia Incomplete right bundle branch block Left anterior fascicular block PRWP No change
--- NOTE | 2017-05-07 09:05 | PN ---
DATE: 05/07/2017 SUBJECTIVE: The patient is in bed, in no acute distress, nontoxic. No fever. PHYSICAL EXAMINATION: VITAL SIGNS: Temperature is 98, and T max is 99.6. She is chronically ill, debilitated, cachectic. Blood pressure is 120/50, respiratory rate of 18, and heart rate of 93. HEENT: Unremarkable. NECK: Supple. LUNGS: Decreased breath sounds. HEART: Normal S1 and S2. ABDOMEN: Soft. LABORATORY DATA: [place] [address] [place] [id number], hemoglobin of 11, and platelets of 230, and 87% granulocytosis coagulation is noted. Chemistry reveals a BUN of 23 and creatinine of 0.7. Procalcitonin is 0.42. Urine is noted, Legionella antigen is negative and influenza is negative. Microbiology reveals the blood cultures are negative. The patient had a CAT scan of the abdomen and pelvis, which showed a left lower lobe infiltrate. Chest x-ray is noted, no focal consolidation. The patient's EKG reveals a QTc of 465. ASSESSMENT AND PLAN: This is an 86-year-old female with a significant past medical history of chronic obstructive lung disease, chronically ill, debilitated, hypertension, dyslipidemia, carotid artery disease, glaucoma. history of right breast cyst, ex-smoker, high cholesterol, history of appendectomy, cholecystectomy and a right breast cyst removal, who was admitted now with sepsis with healthcare-associated pneumonia, which was found on the CAT scan of the abdomen. Currently, IV access is a problem, nurses are struggling with IV access. We will discontinue the IV vancomycin and IV doxycycline, treat with p.o. doxycycline and meropenem. May be we will switch to p.o. Levaquin next 24 hours. Normal procalcitonin, negative cultures and overall prognosis is poor. If unable to get an IV access, may be we will switch to p.o. Levaquin to complete therapy for this patient. Gonsalo Whipple MD
[2017-05-07] MEDS: Levothyroxine 75 MCG TAB PO SCH (09:17)
[2017-05-07] MEDS: Meropenem 1g/NS 100mL IVPB 1 GM/100 ML PIGGYBACK IVPB SCH (09:35)
[2017-05-07] MEDS: levoFLOXacin 500 MG TAB PO SCH (15:48)
--- NOTE | 2017-05-07 21:36 | PN ---
DATE: 05/07/2017 SUBJECTIVE: She is comfortable in bed, in no acute distress, feeling weak. She is unable to talk much. She lost all the IVs. She cannot get IV antibiotic. Discussed with Dr. Whipple and he is okay to discontinue all IV antibiotics. Blood culture and urine culture all negative. She is unable to ambulate due to fatigue, weakness and failure to thrive. REVIEW OF SYSTEMS: As per HPI. Rest of the 12-point review of systems reviewed and negative. MEDICATIONS: Tylenol 650 q. 4 hours p.r.n., atenolol 25 mg daily, Colace 100 mg three times a day, levothyroxine 75 mcg daily, and Actibile 300 mg p.o. b.i.d. PHYSICAL EXAMINATION GENERAL: Comfortable in bed, in no acute distress. VITAL SIGNS: Blood pressure 115/57, temperature is 98.5, heart rate is 80 per minute, oxygen saturation is 98% on room air and respiratory rate 18 per minute. HEENT: Cachectic. Pallor positive. NECK: Supple. No lymphadenopathy. CHEST: Air entry present and equal bilaterally. No added sound. CARDIOVASCULAR: S1 and S2 normal. No murmur and no gallop. ABDOMEN: Soft and nontender. No hepatosplenomegaly. EXTREMITIES: No edema. CENTRAL NERVOUS SYSTEM: Alert and oriented x3. No focal sensory or motor deficits. SPINE: Nontender. SKIN: No petechiae. No rash. LABORATORY DATA: White count 13.6, hemoglobin 11.5, hematocrit 35.3 and platelet count 230. Sodium 138, potassium 4.1, creatinine 0.7. Total bilirubin 0.8, AST 22, ALT 24, alkaline phosphatase 85. ASSESSMENT: 1. Left lower lobe pneumonia. 2. Leukocytosis. 3. Chronic obstructive pulmonary disease. 4. Abdominal pain. PLAN: She was recommended as per GI. Discussed with Dr. Smith. White count declined to 1300 now, likely due to left lower lobe pneumonia. No respiratory distress. She is on bronchodilators. Lost her IV. Meropenem discontinued, doxycycline discontinued. She is currently on Levaquin 500 mg p.o. daily. We will continue that. Blood culture and urine culture all negative. Abdominal pain resolved. We will continue Synthroid 75 mcg daily and Actibile 300 mg p.o. b.i.d. LFTs within normal limits. Annie Conrad MD
--- NOTE | 2017-05-07 21:40 | HP ---
HISTORY OF PRESENT ILLNESS: Ms. Tracey is an 86-year-old female presented to ED with weakness, body aches, abdominal pain, shortness of breath. CAT scan of the abdomen was unremarkable for acute pathology. No fever, no chills, no rigors. CAT scan of the abdomen also showed left lower lobe infiltrate. She has a history of COPD. No acute shortness of breath in the near past. History of chronic dizziness. She also has hypothyroidism, currently controlled on current medications. PAST MEDICAL HISTORY: Hypertension, COPD, dizziness, hypothyroidism, and history of recurrent fall. PAST SURGICAL HISTORY: Cholecystectomy, appendectomy, and right breast cyst removal. FAMILY HISTORY: Noncontributory. PERSONAL HISTORY: Former smoker. No history of alcohol abuse. ALLERGIES: CORTISONE, IODINE, FLU VACCINE. HOME MEDICATIONS: Lumigan eye drops. REVIEW OF SYSTEMS: As per HPI. Rest of the 12-point review of systems review and negative. PHYSICAL EXAMINATION: GENERAL: Elderly female, cachectic. VITAL SIGNS: Temperature is 97.8, heart rate 89 per minute, respiratory rate 18 per minute, blood pressure 120/60, pulse ox is 99% on room air. HEENT: Normal. NECK: Supple. CHEST: Air entry present and equal bilateral. No added sounds. CARDIOVASCULAR: S1 and S2 normal. No murmurs and no gallops. ABDOMEN: Soft and nontender. No hepatosplenomegaly. EXTREMITIES: No edema. SKIN: No petechia and no rash. MENTAL STATUS: Alert and oriented x3. Moving all the limbs. No focal sensory or motor deficit. SPINE: Nontender. LABORATORY DATA: White count 18,000, hemoglobin 14.1, hematocrit 42.6, platelet count 256. Sodium 138, potassium 4.7, BUN 20, creatinine 0.8, glucose 130, neutrophil 87%, lymphocyte 6%, monocyte 5%, BNP 635. CAT scan as per HPI. EKG, sinus tachycardia. No ST-T changes. ASSESSMENT: 1. Left lower lobe infiltrate. 2. Leukocytosis. 3. Chronic obstructive pulmonary disease. 4. Failure to thrive. 5. Abdominal pain. PLAN: She will be admitted to the hospital on telemonitoring. GI consultation Dr. Smith has been requested. ID consultation with Dr. Whipple for leukocytosis. IV antibiotics meropenem, and doxycycline as per ID. Actigall 300 mg p.o. b.i.d. Stool softener, Colace 100 mg p.o. t.i.d. Continue Tenormin 25 mg daily, Tylenol 650 mg q.6h. p.r.n. We will continue to monitor labs. IV fluids 100 mL an hour normal saline. Annie Conrad MD
[2017-05-08] MEDS: Levothyroxine 75 MCG TAB PO SCH (09:18)
[2017-05-08] MEDS: levoFLOXacin 500 MG TAB PO SCH (09:18)
[2017-05-08] MEDS ORDERED: levoFLOXacin 500 MG TAB PO SCH (09:45)
[2017-05-08 11:08] LABS: BLOOD UREA NITROGEN 14 mg/dL (7-21); CALCIUM 8.6 mg/dL (8.4-10.5); CARBON DIOXIDE 30 mmol/L (21-33); CHLORIDE 96 mmol/L (98-107); GFR AFRICAN-AMERICAN > 60; GLUCOSE,RANDOM 180 mg/dL (70-110); POTASSIUM 3.9 mmol/L (3.6-5.0); SODIUM 132 mmol/L (132-148)
--- NOTE | 2017-05-08 13:23 | CP.PCM.PN ---
Subjective - Date & Time of Evaluation Date of Evaluation: 05/08/17 Time of Evaluation: 10:15 - Subjective Subjective: Still feels weak, has occasional cough which is dry, appetite is still poor, no nausea, no diarrhea, no fevers. Objective - Vital Signs/Intake and Output Vital Signs (last 24 hours): Temp Pulse Resp BP Pulse Ox 97.7 F 94 H 18 103/50 L 93 L 05/08/17 06:00 05/08/17 09:18 05/08/17 06:00 05/08/17 09:18 05/08/17 06:00 Intake and Output: 05/08/17 05/08/17 06:59 18:59 Intake Total 120 Output Total 1200 Balance -1080 - Medications Medications: Current Medications Acetaminophen (Tylenol 325mg Tab) 650 mg PO Q4H PRN PRN Reason: Pain, moderate (4-7) Last Admin: 05/08/17 01:08 Dose: 650 mg Atenolol (Tenormin) 25 mg PO DAILY [facility] Last Admin: 05/08/17 09:18 Dose: 25 mg Docusate Sodium (Colace Liquid) 100 mg PO TID [facility] Last Admin: 05/08/17 09:19 Dose: 100 mg Latanoprost (Xalatan Opht) 0 ml OU HS [facility] Last Admin: 05/07/17 21:38 Dose: Not Given Levofloxacin (Levaquin) 500 mg PO DAILY [facility] Last Admin: 05/08/17 09:18 Dose: 500 mg Levothyroxine Sodium (Synthroid) 75 mcg PO DAILY [facility] Last Admin: 05/08/17 09:18 Dose: 75 mcg Ursodiol (Actigall) 300 mg PO 0800,1800 [facility] Last Admin: 05/08/17 08:16 Dose: 300 mg - Labs Labs: 05/06/17 06:00 05/06/17 06:00 PT 13.5 Seconds (9.9-11.8) H 05/05/17 14:30 INR 1.25 (0.93-1.08) H 05/05/17 14:30 APTT 39.4 Seconds (23.7-30.8) H 05/05/17 14:30 - Constitutional Appears: Non-toxic, Cachectic, Chronically Ill - Head Exam Head Exam: NORMAL INSPECTION - ENT Exam ENT Exam: Mucous Membranes Moist - Neck Exam Neck Exam: absent: Meningismus - Respiratory Exam Respiratory Exam: Decreased Breath Sounds - Cardiovascular Exam Cardiovascular Exam: +S1, +S2 - GI/Abdominal Exam GI & Abdominal Exam: Soft. absent: Tenderness Assessment and Plan - Assessment and Plan (Free Text) Plan: Assessment sepsis with left lower lobe healthcare-associated pneumonia Left knee swelling, likely pseudogout S/P arthrocentesis dyslipidemia carotid artery stenosis COPD HTN glaucoma cataracts hiatal hernia right breast cyst S/P appendectomy S/P cholecystectomy Plan had been on PO Doxycycline and Merrem for 3 days - now on PO Levaquin since IV access is an issue (day 4 today total antibiotics) to complete up to 7 days cultures have been negative, PCT is 0.42 will continue to monitor clinically discussed with Dr. Mack - patient may need physical therapy
--- NOTE | 2017-05-08 14:59 | PN ---
DATE: SUBJECTIVE: An 86-year-old female, resting in bed this morning. She states that she is feeling weak. She states that she has not been out of bed since admission. She reported by the nurses that having no particular problems during the night. PHYSICAL EXAMINATION: VITAL SIGNS: She currently has a temperature of 97.7, her pulse is 88, her blood pressure is 124/58, and her oxygen saturation is 93% on room air. GENERAL: She is alert and oriented x3. NECK: Supple. LUNGS: Show diminished breath sounds at the bases. HEART: S1 and S2 . ABDOMEN: Soft and scaphoid. Positive bowel sounds. EXTREMITIES: Show no evidence of edema. LABORATORY DATA: Last CBC showed a WBC of 13.6, RBC is 3.8, hemoglobin 11.5, hematocrit 35.3, and platelet count of 230. Her chemistry on 05/06/2017 showed normal electrolytes, BUN was 23, creatinine was 0.7, and procalcitonin is 0.42. MEDICATIONS: Currently, the patient is on Actigall with a history of cholecystectomy and biliary stents, which is no longer present, in the past, liquid Colace for relaxation of bowels. She is on Levaquin 750 p.o. daily, Synthroid for hypothyroid disease 75 mcg daily, Tenormin 25 mg daily, Tylenol 2 tabs q.4 hours p.r.n. for moderate pain, and Xalatan eyedrops to the left eye at bedtime. ASSESSMENT AND PLAN: She is currently being followed by infectious disease for a pneumonia. Her urine culture had 10-50,000 of multiple species, felt to be probable contamination. Blood cultures to date are negative. We will get a physical therapy evaluation and nurses have been requested for out of bed to chair. We will review with infectious disease treatment plan. Consult has been requested with GI. The patient has a large hiatal hernia with dysphagia history. We will followup the patient's lab work. Elva Mack MD
[2017-05-08] MEDS: Latanoprost 2.5 ml Opht Soln OU SCH (21:33)
[2017-05-09 06:24] LABS: BASO # 0.02 K/mm3 (0.0-2.0); BASO % 0.2 % (0.0-3.0); EOS % 0.2 % (1.5-5.0); GRAN # 6.41 (1.4-6.5); GRAN % 74.7 % (50.0-68.0); HEMATOCRIT 32.2 % (36.0-48.0); LYMPH # 1.4 (1.2-3.4); LYMPH % 16.5 % (22.0-35.0); MEAN CELL VOLUME 91.2 fl (80.0-105.0); MEAN CORPUSCULAR HEMOGLOBIN 30.6 pg (25.0-35.0); MEAN CORPUSCULAR HGB CONC 33.5 g/dl (31.0-37.0); MEAN PLATELET VOLUME 9.9 fl (7.0-11.0); MONO # 0.7 (0.1-0.6); MONO % 8.4 % (1.0-6.0); RED CELL DISTRIBUTION WIDTH 12.9 % (11.5-14.5); WHITE BLOOD COUNT 8.6 10^3/ul (4.5-11.0)
[2017-05-09] MEDS: Levothyroxine 75 MCG TAB PO SCH (10:22)
[2017-05-09] MEDS: levoFLOXacin 750 MG TAB PO SCH (10:23)
--- NOTE | 2017-05-09 13:47 | PN ---
DATE: 05/09/2017 SUBJECTIVE: The patient is in bed, in no acute distress, nontoxic. PHYSICAL EXAMINATION VITAL SIGNS: Temperature is 98, blood pressure is 112/60, respiratory rate of 18. HEENT: Unremarkable. NECK: Supple. LUNGS: Decreased breath sounds. HEART: Normal S1 and S2. ABDOMEN: Soft, nontender. LABORATORY DATA: Reveals a white count of 8.6, hemoglobin of 10, and platelets of 284. Chemistry reveals a BUN of 14, creatinine of 0.6. Urinalysis is noted and serology is noted. Microbiology reveals the blood cultures are negative. Urine cultures are negative. Urine culture is . Review ordered reveals the patient to be off of antibiotics. ASSESSMENT AND PLAN: This is an 86-year-old female with sepsis, left lower lobe healthcare associated pneumonia with left knee swelling and likely pseudogout, status post thoracentesis, dyslipidemia, and coronary artery diseases. Currently, the patient is on p.o. Levaquin, had received 3 days of meropenem and doxycycline in this patient with chronic obstructive pulmonary disease, hypertension, glaucoma, cataracts, hiatal hernia, right breast cyst, appendectomy, cholecystectomy with today is day #5 of antibiotics with complete 7 days. Case discussed with the nursing staff. Gonsalo Whipple MD
--- NOTE | 2017-05-09 16:28 | CP.PCM.PN ---
<Elva Joyner - Last Filed: 05/09/17 16:27> Subjective - Date & Time of Evaluation Date of Evaluation: 05/09/17 Time of Evaluation: 10:55 - Subjective Subjective: S&E at bedside earlier today, chart reviewed. Complain of nausea. Diet changed to clear liquid. No BM. No SOB or chest pain Objective - Vital Signs/Intake and Output Vital Signs (last 24 hours): Temp Pulse Resp BP Pulse Ox 98 F 72 18 118/70 94 L 05/09/17 12:00 05/09/17 14:00 05/09/17 12:00 05/09/17 12:00 05/09/17 05:20 Intake and Output: 05/09/17 05/09/17 06:59 18:59 Intake Total 600 240 Output Total 720 340 Balance -120 -100 - Medications Medications: Current Medications Acetaminophen (Tylenol 325mg Tab) 650 mg PO Q4H PRN PRN Reason: Pain, moderate (4-7) Last Admin: 05/08/17 01:08 Dose: 650 mg Atenolol (Tenormin) 25 mg PO DAILY [facility] Last Admin: 05/09/17 10:22 Dose: 25 mg Docusate Sodium (Colace) 100 mg PO TID [facility] Last Admin: 05/09/17 10:23 Dose: 100 mg Latanoprost (Xalatan Opht) 0 ml OU HS [facility] Last Admin: 05/08/17 21:33 Dose: 2.5 ml Levofloxacin (Levaquin) 750 mg PO DAILY [facility] Last Admin: 05/09/17 10:23 Dose: 750 mg Levothyroxine Sodium (Synthroid) 75 mcg PO DAILY [facility] Last Admin: 05/09/17 10:22 Dose: 75 mcg Ursodiol (Actigall) 300 mg PO 0800,1800 [facility] Last Admin: 05/09/17 10:22 Dose: 300 mg - Labs Labs: 05/09/17 06:00 05/08/17 10:51 PT 13.5 Seconds (9.9-11.8) H 05/05/17 14:30 INR 1.25 (0.93-1.08) H 05/05/17 14:30 APTT 39.4 Seconds (23.7-30.8) H 05/05/17 14:30 - Constitutional Appears: No Acute Distress, Other (appears weak) - Head Exam Head Exam: NORMOCEPHALIC - Eye Exam Eye Exam: Normal appearance. absent: Scleral icterus - ENT Exam ENT Exam: Mucous Membranes Moist - Neck Exam Neck Exam: Normal Inspection - Respiratory Exam Respiratory Exam: NORMAL BREATHING PATTERN. absent: Respiratory Distress - Cardiovascular Exam Cardiovascular Exam: +S1, +S2 - GI/Abdominal Exam GI & Abdominal Exam: Soft, Normal Bowel Sounds. absent: Tenderness - Extremities Exam Extremities Exam: absent: Calf Tenderness, Pedal Edema - Neurological Exam Neurological Exam: Alert, Awake, Oriented x3 - Skin Skin Exam: Dry, Warm Assessment and Plan - Assessment and Plan (Free Text) Assessment: Assessment: Pneumonia Large hiatal hernia History of cholecystectomy with biliary stent/cholangitis Hypothyroidism history of constipation Plan: clear liquid diet for 24 hours, patient improves advance as tolerated . Continue Actigall On Colace On PO antibiotics Levaquin Seen and discussed W/ Dr. Fowler. <Abdifatah Smith V - Last Filed: 05/09/17 22:46> Objective - Vital Signs/Intake and Output Vital Signs (last 24 hours): Temp Pulse Resp BP Pulse Ox 98.4 F 98 H 18 120/63 94 L 05/09/17 19:40 05/09/17 19:40 05/09/17 19:40 05/09/17 19:40 05/09/17 19:40 Intake and Output: 05/09/17 05/10/17 18:59 06:59 Intake Total 240 Output Total 340 Balance -100 - Medications Medications: Current Medications Acetaminophen (Tylenol 325mg Tab) 650 mg PO Q4H PRN PRN Reason: Pain, moderate (4-7) Last Admin: 05/08/17 01:08 Dose: 650 mg Atenolol (Tenormin) 25 mg PO DAILY [facility] Last Admin: 05/09/17 10:22 Dose: 25 mg Docusate Sodium (Colace) 100 mg PO TID [facility] Last Admin: 05/09/17 17:55 Dose: 100 mg Latanoprost (Xalatan Opht) 0 ml OU HS [facility] Last Admin: 05/09/17 21:52 Dose: 2.5 ml Levofloxacin (Levaquin) 750 mg PO DAILY [facility] Last Admin: 05/09/17 10:23 Dose: 750 mg Levothyroxine Sodium (Synthroid) 75 mcg PO DAILY [facility] Last Admin: 05/09/17 10:22 Dose: 75 mcg Ursodiol (Actigall) 300 mg PO 0800,1800 [facility] Last Admin: 05/09/17 17:55 Dose: 300 mg - Labs Labs: 05/09/17 06:00 05/08/17 10:51 PT 13.5 Seconds (9.9-11.8) H 05/05/17 14:30 INR 1.25 (0.93-1.08) H 05/05/17 14:30 APTT 39.4 Seconds (23.7-30.8) H 05/05/17 14:30 Attending/Attestation - Attestation I have personally seen and examined this patient.: Yes I have fully participated in the care of the patient.: Yes I have reviewed all pertinent clinical information, including history, physical exam and plan: Yes Notes (Text): This is an addendum to GI progress report dictated by Elva Joyner APN.The patient was seen and examined earlier. Medical records, lab studies, imagings were reviewed. Last 24 hours events reviewed. Agreed with the above treatment plan as outlined in Elva Joyner APN's notes the with the addition of the following On clear liquid diet Her by mouth intake is still remains poor. Patient has a large hiatus hernia was only on a pured diet. She feels that she is not able to take 3 times meal. At home she used to have 1 or 2 times only in a day. Abdomen soft no tenderness Pneumonia and UTI on antibiotics continue history of large combined hernia paraesophageal complement history of CBD stones in the past on a long-term Actigall Will slowly advanced the diet to full liquids and then to puree diet 05/09/17 22:43
--- NOTE | 2017-05-09 19:10 | PN ---
SUBJECTIVE: An 87-year-old female, lying in bed this morning. She states that she is just feeling generalized weakness. She has been reported by the nurses is having no particular problems during the night. PHYSICAL EXAMINATION: VITAL SIGNS: Show a temperature of 98, her pulse is 70, blood pressure is 118/70, oxygen saturation is reported on room air at 90%. GENERAL: She is alert and oriented x3. NECK: Supple. LUNGS: Rhonchitic. HEART: S1 and S2 rhythm. ABDOMEN: Soft and positive bowel sounds. EXTREMITIES: Show no evidence of edema. LABORATORY DATA: Microbiological studies today show negative blood culture, growth at 4 days. Urine culture showed multiple species. Laboratory data showed a WBC of 8.6, hemoglobin 10.8, hematocrit 32.2, and platelet count of 284. Chemistries on 05/08 with normal electrolytes with a BUN of 14 and creatinine was 0.6. Currently, the patient is being followed by infectious disease for pneumonia, and she is currently receiving Levaquin 750 daily. She is having thyroid replacements that will be with Synthroid 75 mcg daily. She is on laxative, Colace, stool softener t.i.d. 100 mg, Tenormin 25 mg daily, Actigall 300 mg b.i.d. She has been seen by GI. She has a large hiatal hernia with dysphagia. She has been placed on a clear liquid diet with observation, because she was having some difficulty with her diet and food. She is being followed by infectious disease. The physical therapy has been requested to see the patient as well. She is extremely deconditioned and will require physical therapy. I have spoken to the patient about the options for either going to TCU or to a subacute rehab. We will need to discuss this with her family and son-in-law, and rehab is currently recommending subacute. I will continue to follow the patient at this time and follow up her labs. Elva Mack MD
[2017-05-09] MEDS: Latanoprost 2.5 ml Opht Soln OU SCH (21:52)
[2017-05-10 07:21] LABS: BASO # 0.03 K/mm3 (0.0-2.0); BASO % 0.5 % (0.0-3.0); EOS % 0.5 % (1.5-5.0); GRAN # 4.25 (1.4-6.5); GRAN % 71.2 % (50.0-68.0); HEMATOCRIT 32.5 % (36.0-48.0); LYMPH # 1.2 (1.2-3.4); LYMPH % 19.3 % (22.0-35.0); MEAN CORPUSCULAR HGB CONC 32.9 g/dl (31.0-37.0); MEAN PLATELET VOLUME 9.8 fl (7.0-11.0); MONO # 0.5 (0.1-0.6); MONO % 8.5 % (1.0-6.0); RED CELL DISTRIBUTION WIDTH 12.7 % (11.5-14.5)
[2017-05-10 07:46] LABS: BLOOD UREA NITROGEN 9 mg/dL (7-21); CALCIUM 8.7 mg/dL (8.4-10.5); CARBON DIOXIDE 35 mmol/L (21-33); CHLORIDE 94 mmol/L (98-107); GFR AFRICAN-AMERICAN > 60; GLUCOSE,RANDOM 87 mg/dL (70-110); POTASSIUM 4.3 mmol/L (3.6-5.0); SODIUM 135 mmol/L (132-148)
[2017-05-10] MEDS: Levothyroxine 75 MCG TAB PO SCH (09:55)
[2017-05-10] MEDS: levoFLOXacin 750 MG TAB PO SCH (09:55)
--- NOTE | 2017-05-10 10:31 | CP.PCM.PN ---
<Elva Joyner - Last Filed: 05/10/17 11:01> Subjective - Date & Time of Evaluation Date of Evaluation: 05/10/17 Time of Evaluation: 08:10 - Subjective Subjective: seen and examined at the bedside earlier this morning of the chart was reviewed. Patient still unable to tolerate much of liquid diet. She reports having cough last night around 10 PM and experience a squeezing feeling and this taste after the breath. Take some ice chips but patient does not drink liquids in between meals. Her last bowel movement was prior to admission. Although she states she was moving her bowels pretty well, taking MiraLAX. Objective - Vital Signs/Intake and Output Vital Signs (last 24 hours): Temp Pulse Resp BP Pulse Ox 98.3 F 86 18 111/54 L 93 L 05/10/17 07:45 05/10/17 07:45 05/10/17 07:45 05/10/17 07:45 05/10/17 07:45 Intake and Output: 05/10/17 05/10/17 06:59 18:59 Intake Total 0 Balance 0 - Medications Medications: Current Medications Acetaminophen (Tylenol 325mg Tab) 650 mg PO Q4H PRN PRN Reason: Pain, moderate (4-7) Last Admin: 05/08/17 01:08 Dose: 650 mg Atenolol (Tenormin) 25 mg PO DAILY [facility] Last Admin: 05/10/17 09:54 Dose: 25 mg Docusate Sodium (Colace) 100 mg PO TID [facility] Last Admin: 05/10/17 09:54 Dose: 100 mg Latanoprost (Xalatan Opht) 0 ml OU HS [facility] Last Admin: 05/09/17 21:52 Dose: 2.5 ml Levofloxacin (Levaquin) 750 mg PO DAILY [facility] Last Admin: 05/10/17 09:55 Dose: 750 mg Levothyroxine Sodium (Synthroid) 75 mcg PO DAILY [facility] Last Admin: 05/10/17 09:55 Dose: 75 mcg Pantoprazole Sodium (Protonix Inj) 40 mg IVP Q12 [facility] Ursodiol (Actigall) 300 mg PO 0800,1800 [facility] Last Admin: 05/10/17 09:55 Dose: 300 mg - Labs Labs: 05/10/17 07:10 05/10/17 07:10 PT 13.5 Seconds (9.9-11.8) H 05/05/17 14:30 INR 1.25 (0.93-1.08) H 05/05/17 14:30 APTT 39.4 Seconds (23.7-30.8) H 05/05/17 14:30 - Constitutional Appears: No Acute Distress - Eye Exam Eye Exam: Normal appearance. absent: Scleral icterus - ENT Exam ENT Exam: Mucous Membranes Dry - Respiratory Exam Respiratory Exam: Decreased Breath Sounds, NORMAL BREATHING PATTERN. absent: Rales, Wheezes, Respiratory Distress - Cardiovascular Exam Cardiovascular Exam: +S1, +S2 - GI/Abdominal Exam GI & Abdominal Exam: Soft, Normal Bowel Sounds. absent: Guarding, Tenderness, Rebound - Neurological Exam Neurological Exam: Alert, Awake, Oriented x3 - Skin Skin Exam: Dry, Warm Assessment and Plan - Assessment and Plan (Free Text) Assessment: Assessment: Pneumonia Large hiatal hernia History of cholecystectomy with biliary stent/cholangitis Hypothyroidism history of constipation Plan: continue clear liquid diet for 24 hours, patient improves advance as tolerated . Continue Actigall On Colace start Protonix BID, give a dose now On PO antibiotics Levaquin give a dose of lactulose on and Ensure clear Seen and discussed W/ Dr. Fowler. <Abdifatah Smith V - Last Filed: 05/10/17 21:24> Objective - Vital Signs/Intake and Output Vital Signs (last 24 hours): Temp Pulse Resp BP Pulse Ox 97.4 F L 84 20 107/60 95 05/10/17 16:10 05/10/17 16:10 05/10/17 16:10 05/10/17 16:10 05/10/17 16:10 Intake and Output: 05/10/17 05/11/17 18:59 06:59 Intake Total 480 Balance 480 - Medications Medications: Current Medications Acetaminophen (Tylenol 325mg Tab) 650 mg PO Q4H PRN PRN Reason: Pain, moderate (4-7) Last Admin: 05/08/17 01:08 Dose: 650 mg Atenolol (Tenormin) 25 mg PO DAILY [facility] Last Admin: 05/10/17 09:54 Dose: 25 mg Docusate Sodium (Colace) 100 mg PO TID [facility] Last Admin: 05/10/17 18:16 Dose: 100 mg Latanoprost (Xalatan Opht) 0 ml OU HS [facility] Last Admin: 05/09/17 21:52 Dose: 2.5 ml Levofloxacin (Levaquin) 750 mg PO DAILY [facility] Last Admin: 05/10/17 09:55 Dose: 750 mg Levothyroxine Sodium (Synthroid) 75 mcg PO DAILY [facility] Last Admin: 05/10/17 09:55 Dose: 75 mcg Pantoprazole Sodium (Protonix Inj) 40 mg IVP Q12 [facility] Ursodiol (Actigall) 300 mg PO 0800,1800 [facility] Last Admin: 05/10/17 17:09 Dose: 300 mg - Labs Labs: 05/10/17 07:10 05/10/17 07:10 PT 13.5 Seconds (9.9-11.8) H 05/05/17 14:30 INR 1.25 (0.93-1.08) H 05/05/17 14:30 APTT 39.4 Seconds (23.7-30.8) H 05/05/17 14:30 Attending/Attestation - Attestation I have personally seen and examined this patient.: Yes I have fully participated in the care of the patient.: Yes I have reviewed all pertinent clinical information, including history, physical exam and plan: Yes Notes (Text): This is an addendum to GI progress report dictated by Elva Joyner APN.The patient was seen and examined earlier. Medical records, lab studies, imagings were reviewed. Last 24 hours events reviewed. Agreed with the above treatment plan as outlined in Elva Joyner APN's notes the with the addition of the following On clear liquid diet. He chest discomfort postprandially slightly better on PPI now esophageal ulcerations and bezoar are the most likely contributory factor for discomfort We'll start the patient on PPN would consider slowly advancing the diet to pur ed diet after 48 hours Patient is malnourished. She mentioned that her by mouth intake at home also was poor. B check electrolytes and also will discuss with Dr Mack 05/10/17 21:18
--- NOTE | 2017-05-10 14:46 | PN ---
SUBJECTIVE: The patient is in bed, in no acute distress, nontoxic. No fevers or chills. No nausea. PHYSICAL EXAMINATION: VITAL SIGNS: Temperature is 98, blood pressure is 120/70, respiratory rate of 16. HEENT: Unremarkable. NECK: Supple. LUNGS: Decreased breath sounds. HEART: Normal S1 and S2. ABDOMEN: Soft, nontender. LABORATORY DATA: Reveals a white count of 6, hemoglobin of 10, and platelets of 290. BUN of 9, creatinine of 0.6. Urinalysis is noted and serology is noted. Microbiology is reviewed. Review of orders reveals the patient to be off of antibiotics IV. The patient is currently on p.o. Levaquin. ASSESSMENT AND PLAN: This is an 87-year-old female with sepsis, left lower healthcare associated pneumonia with left knee swelling and most likely pseudogout, status post thoracentesis, dyslipidemia, and coronary artery diseases. Currently on p.o. Levaquin, had received meropenem and doxycycline and today is day #6 of Levaquin, we will complete 7 days. Gonsalo Whipple MD
--- NOTE | 2017-05-10 15:57 | PN ---
DATE: SUBJECTIVE: An 86-year-old female resting in bed this morning. Nursing staff states that the patient is having a poor oral intake. She complains of feeling weak. PHYSICAL EXAMINATION: GENERAL: She is alert and oriented x3. VITAL SIGNS: Her temperature is 98.3, her pulse is 86, her blood pressure is 111/54. NECK: Supple. LUNGS: Show some rhonchi. HEART: S1 and S2 rhythm. ABDOMEN: Soft with positive bowel sounds. EXTREMITIES: No evidence of edema. LABORATORY DATA: Shows WBC of 6.0, hemoglobin 10.7, hematocrit 32.5, platelet count 290. Chemistry shows sodium 135, potassium 4.3, chloride 94, CO2 of 35, BUN is 9, creatinine is 0.6. MEDICATIONS: The patient is receiving Levaquin p.o. being treated for pneumonia, being followed by Infectious disease. She is on Synthroid replacement therapy for hypothyroid disease, Tenormin 25 mg daily for her underlying arteriosclerotic heart disease, Xalatan eye drops for her glaucoma, Tylenol p.r.n. for pain, and Protonix IV. ASSESSMENT AND PLAN: She has an extremely large hiatal hernia in the chest cavity area, which precludes her ability to eat solid foods. She has been placed on a liquid diet, was having some discomfort with consumption of liquids. The patient has had a cholecystectomy in the past and is on Actigall. We will review with Gastroenterology regarding management of her nutritional status, her hiatal hernia, and looking at the patient's care notes, physical therapy evaluation done yesterday shows that the patient required some assistance for mobility. She walked 10 feet with a rolling walker. The social service, physical therapy looking into a subacute rehabilitation, but we need to evaluate and assess the patient's nutritional status. We have to discuss this with health and social care teacher and the window caser and we will ask Gastroenterology to reassess the patient as well as ask dietary for input. Elva Mack MD
[2017-05-10] MEDS: Latanoprost 2.5 ml Opht Soln OU SCH (22:17)
[2017-05-11 07:03] LABS: ALB/GLOB RATIO 1.1 (1.1-1.8); ALKALINE PHOSPHATASE 83 U/L (38-126); ALT/SGPT 28 U/L (7-56); AST/SGOT 21 U/L (14-36); BILIRUBIN,TOTAL 0.5 mg/dL (0.2-1.3); BLOOD UREA NITROGEN 9 mg/dL (7-21); CALCIUM 8.6 mg/dL (8.4-10.5); CARBON DIOXIDE 32 mmol/L (21-33); CHLORIDE 95 mmol/L (98-107); GFR AFRICAN-AMERICAN > 60; GLUCOSE,RANDOM 89 mg/dL (70-110); POTASSIUM 3.9 mmol/L (3.6-5.0); SODIUM 135 mmol/L (132-148); TOTAL PROTEIN 5.9 g/dL (5.8-8.3)
[2017-05-11 08:15] LABS: BASO # 0.04 K/mm3 (0.0-2.0); BASO % 0.5 % (0.0-3.0); EOS % 0.5 % (1.5-5.0); GRAN # 5.49 (1.4-6.5); GRAN % 72.2 % (50.0-68.0); HEMATOCRIT 33.1 % (36.0-48.0); LYMPH # 1.3 (1.2-3.4); LYMPH % 16.7 % (22.0-35.0); MEAN CELL VOLUME 90.7 fl (80.0-105.0); MEAN CORPUSCULAR HEMOGLOBIN 30.7 pg (25.0-35.0); MEAN CORPUSCULAR HGB CONC 33.8 g/dl (31.0-37.0); MEAN PLATELET VOLUME 10.2 fl (7.0-11.0); MONO # 0.8 (0.1-0.6); MONO % 10.1 % (1.0-6.0); RED CELL DISTRIBUTION WIDTH 12.7 % (11.5-14.5); WHITE BLOOD COUNT 7.6 10^3/ul (4.5-11.0)
[2017-05-11] MEDS: levoFLOXacin 750 MG TAB PO SCH (09:24)
[2017-05-11] MEDS: Levothyroxine 75 MCG TAB PO SCH (09:24)
--- NOTE | 2017-05-11 12:40 | CP.PCM.PN ---
<Elva Joyner - Last Filed: 05/11/17 12:39> Subjective - Date & Time of Evaluation Date of Evaluation: 05/11/17 Time of Evaluation: 09:50 - Subjective Subjective: seen and examined at the bedside earlier today, the chart was reviewed. Patient remains on clear liquids and tolerated more this a.m. compared to yesterday. No reports of nausea, vomiting, shortness of breath or chest pain. No report of BM. Given laxatives. Objective - Vital Signs/Intake and Output Vital Signs (last 24 hours): Temp Pulse Resp BP Pulse Ox 97.3 F L 91 H 16 118/59 L 93 L 05/11/17 08:00 05/11/17 08:00 05/11/17 08:00 05/11/17 08:00 05/11/17 08:00 Intake and Output: 05/11/17 05/11/17 06:59 18:59 Intake Total 180 Balance 180 - Medications Medications: Current Medications Acetaminophen (Tylenol 325mg Tab) 650 mg PO Q4H PRN PRN Reason: Pain, moderate (4-7) Last Admin: 05/08/17 01:08 Dose: 650 mg Atenolol (Tenormin) 25 mg PO DAILY [facility] Last Admin: 05/11/17 09:24 Dose: 25 mg Docusate Sodium (Colace) 100 mg PO TID [facility] Last Admin: 05/11/17 09:24 Dose: 100 mg Amino Acids (Clinimix 4.25/5 % (1000 Ml)) 1,000 mls @ 42 mls/hr IV .[id number] [facility] Stop: 05/14/17 18:01 Latanoprost (Xalatan Opht) 0 ml OU HS [facility] Last Admin: 05/10/17 22:17 Dose: 2.5 ml Levofloxacin (Levaquin) 750 mg PO DAILY [facility] Last Admin: 05/11/17 09:24 Dose: 750 mg Levothyroxine Sodium (Synthroid) 75 mcg PO DAILY [facility] Last Admin: 05/11/17 09:24 Dose: 75 mcg Pantoprazole Sodium (Protonix Inj) 40 mg IVP Q12 [facility] Last Admin: 05/11/17 09:25 Dose: 40 mg Ursodiol (Actigall) 300 mg PO 0800,1800 [facility] Last Admin: 05/11/17 09:24 Dose: 300 mg - Labs Labs: 05/11/17 06:00 05/11/17 06:00 PT 13.5 Seconds (9.9-11.8) H 05/05/17 14:30 INR 1.25 (0.93-1.08) H 05/05/17 14:30 APTT 39.4 Seconds (23.7-30.8) H 05/05/17 14:30 - Constitutional Appears: No Acute Distress, Cachectic - Eye Exam Eye Exam: Normal appearance. absent: Scleral icterus - ENT Exam ENT Exam: Mucous Membranes Moist - Neck Exam Neck Exam: Normal Inspection - Respiratory Exam Respiratory Exam: Decreased Breath Sounds, NORMAL BREATHING PATTERN. absent: Rales, Wheezes, Respiratory Distress - Cardiovascular Exam Cardiovascular Exam: +S1, +S2 - GI/Abdominal Exam GI & Abdominal Exam: Soft, Normal Bowel Sounds. absent: Guarding, Tenderness, Rebound - Extremities Exam Extremities Exam: Normal Capillary Refill. absent: Calf Tenderness - Neurological Exam Neurological Exam: Alert, Awake, Oriented x3 - Skin Skin Exam: Dry, Warm Assessment and Plan - Assessment and Plan (Free Text) Assessment: Assessment: Pneumonia Large hiatal hernia History of cholecystectomy with biliary stent/cholangitis Hypothyroidism history of constipation Plan: continue clear liquid diet start PPN Continue Actigall On Colace continue Protonix BID On PO antibiotics Levaquin continue Ensure clear Plan for TCU Seen and discussed W/ Dr. Fowler <Abdifatah Smith V - Last Filed: 05/11/17 22:37> Objective - Vital Signs/Intake and Output Vital Signs (last 24 hours): Temp Pulse Resp BP Pulse Ox 97.8 F 74 20 115/64 97 05/11/17 16:00 05/11/17 16:00 05/11/17 16:00 05/11/17 16:00 05/11/17 16:00 Intake and Output: 05/11/17 05/12/17 18:59 06:59 Intake Total 120 Balance 120 - Labs Labs: 05/11/17 06:00 05/11/17 06:00 PT 13.5 Seconds (9.9-11.8) H 05/05/17 14:30 INR 1.25 (0.93-1.08) H 05/05/17 14:30 APTT 39.4 Seconds (23.7-30.8) H 05/05/17 14:30 Attending/Attestation - Attestation I have personally seen and examined this patient.: Yes I have fully participated in the care of the patient.: Yes I have reviewed all pertinent clinical information, including history, physical exam and plan: Yes Notes (Text): This is an addendum to GI progress report dictated by Elva Joyner APN.The patient was seen and examined earlier. Medical records, lab studies, imagings were reviewed. Last 24 hours events reviewed. Agreed with the above treatment plan as outlined in Elva Joyner APN's notes the with the addition of the following please slightly better on PPI, clear liquid diet Abdomen soft cachectic-appearing moderately nourished Would continue the clear liquid diet and PPN 05/11/17 22:36
--- NOTE | 2017-05-11 16:19 | PN ---
SUBJECTIVE: The patient is in bed, in no acute distress, nontoxic. PHYSICAL EXAMINATION VITAL SIGNS: Temperature is 98, blood pressure is 118/70, respiratory rate of 16. HEENT: Unremarkable. NECK: Supple. LUNGS: Decreased breath sounds. HEART: Normal S1 and S2 ABDOMEN: Soft and nontender. LABORATORY DATA: Examination reveals patient's white count of 7.6, hemoglobin is 11. Chemistries reveals a BUN of 9, creatinine of 0.6. Urinalysis is noted and urine for Legionella antigen is negative. Influenza is negative. Microbiology is noted. Blood cultures are negative. Urine cultures, probable contamination with multiple species. Review of the orders reveals the patient to be on p.o. Levaquin. ASSESSMENT AND PLAN: An 87-year-old female seen earlier today in #[id number], bed #2 with left lower lobe Healthcare-associated pneumonia, left knee swelling and most likely pseudogout status post thoracentesis, dyslipidemia, coronary artery disease, is currently on p.o. Levaquin and day #7, we will discontinue the Levaquin after today's last dose which was given at 09:30 this morning. Gonsalo Whipple MD
[2017-05-11] MEDS ORDERED: Amino/Dext 4.25/5 1,000 ML IV SCH (18:00)
[2017-05-11 18:04] VITALS: BP 115/64; PULSE 74; RESP 20; TEMP 97.8; O2SAT 97
--- NOTE | 2017-05-12 00:39 | DS ---
This is an 86-year-old female, who was admitted to [facility] for weakness, found to have a pneumonia, treated with antibiotics. She was also found to have malnourished state, felt to be secondary to her GI history and problem, which consists of a large hiatal hernia and dysphagia. She has past history of gallstones, gallbladder resection, biliary stent, which is no longer present, history of esophageal ulcers, COPD, hyperthyroid disease, aortic stenosis, arteriosclerotic heart disease, glaucoma, vitamin B12 deficiency. The patient is having physical therapy, but due to her decondition state and poor nutritional state, she is having difficulty participating. I have to review with GI, the patient has been advised to initiate therapy protocol with hyperalimentation and slowly advance diet at times tolerated. I recommended that the patient go to transitional care unit, so we can monitor the patient closely with this given treatment plan in place. She will continue on Actigall 300 mg twice a day, hyperalimentation and Colace 100 mg t.i.d., Levaquin 750 daily, Protonix 40 mg q. 12, Synthroid 75 mcg daily, Tenormin 25 mg daily, Tylenol 2 tabs q. 4 hours p.r.n. for moderate pain, Xalatan ophthalmic solution to the left eye at bedtime. All these findings have been discussed with the patient and her son-in-law as well as with the individual consultants. Elva Mack MD
== END 2017-05-11 19:31 | DRG 871 ==
LOC: ED 13:43 → EROBSV 15:07 → ERH 18:31 → OBSVTOIN 18:31 → ERH 20:57 → 2RSO 22:36 → 5RSO 05-09 23:24
PROVIDERS: ADMIT Internal Medicine Nephrology; ATTEND Internal Medicine
DX: A41.9 Sepsis, unspecified organism (principal); J18.9 Pneumonia, unspecified organism; R64 Cachexia; E46 Unspecified protein-calorie malnutrition; J44.0 Chronic obstructive pulmonary disease with (acute) lower respiratory infection; K22.10 Ulcer of esophagus without bleeding; I35.0 Nonrheumatic aortic (valve) stenosis; Z68.1 Body mass index [BMI] 19.9 or less, adult; I65.29 Occlusion and stenosis of unspecified carotid artery; I10 Essential (primary) hypertension; R62.7 Adult failure to thrive; M11.262 Other chondrocalcinosis, left knee; E78.00 Pure hypercholesterolemia, unspecified; I25.10 Atherosclerotic heart disease of native coronary artery without angina pectoris; E53.8 Deficiency of other specified B group vitamins; Y95 Nosocomial condition; E03.9 Hypothyroidism, unspecified; K21.9 Gastro-esophageal reflux disease without esophagitis; K59.00 Constipation, unspecified; K44.9 Diaphragmatic hernia without obstruction or gangrene; H40.9 Unspecified glaucoma; H26.9 Unspecified cataract; Z90.49 Acquired absence of other specified parts of digestive tract; Z87.891 Personal history of nicotine dependence

== ENCOUNTER 2017-05-11 19:31 | Inpatient (IN) | payer MEDICARE ==
[2017-05-11 20:26] VITALS: BMI 17.9
[2017-05-11] MEDS: Amino/Dext 4.25/5 1,000 ML IV SCH (21:12)
[2017-05-11] MEDS: Latanoprost 2.5 ml Opht Soln OU SCH (22:37)
[2017-05-11] MEDS ORDERED: Pneumococcal 23-Valent Vaccine IM ONE (22:43)
[2017-05-12] MEDS: Levothyroxine 75 MCG TAB PO SCH (06:02)
[2017-05-12] MEDS ORDERED: levoFLOXacin 750 MG TAB PO SCH (10:00)
--- NOTE | 2017-05-12 13:51 | HP ---
HISTORY OF PRESENT ILLNESS: The patient is an 87-year-old female, admitted to the Transitional Care Unit. She has a recent history of pneumonia, past medical history of cholecystectomy, biliary stent which has been removed, vitamin B12 deficiency, valvular heart disease, glaucoma, hypothyroid disease, malnutrition, arteriosclerotic heart disease, degenerative arthritis, and gait disorder. SOCIAL HISTORY: She is a nonsmoker, nondrinker, and nondrug user. ALLERGIES: SHE HAS ALLERGIES TO CORTISONE, IODINE, FLU VACCINE, AND CORTISONE. ACTIVE MEDICATIONS: Xalatan eye drops 0.5 mL to the left eye at bedtime, Tylenol 2 tablets every 4 hours p.r.n., atenolol 25 mg daily, Synthroid 75 mcg daily, Protonix 40 mg IV q. 12 hours., Levaquin 750 mg daily, Colace 100 mg t.i.d., ursodiol 300 mg b.i.d., and she is on hyperalimentation. PAST MEDICAL HISTORY: She has a large hiatal hernia, which sits in her chest, which causes her to have a great deal of discomfort and swallowing issues. She is currently on clear liquid diet with hyperalimentation. The plan by GI is to advance diet slowly as tolerated and watch the patient closely. PHYSICAL EXAMINATION VITAL SIGNS: Showed her temperature of 98.6, her blood pressure is 109/52, and her respiratory rate is 18. NECK: Supple. LUNGS: Show rhonchi at the bases. HEART: S1 and S2 with grade II/ systolic murmur. ABDOMEN: Soft with positive bowel sounds. EXTREMITIES: Show no evidence of edema. NEUROLOGIC: Neurologically, she is alert and oriented x3. IMPRESSION AND PLAN: We will get labs in the morning. She is scheduled for PICC line today without alimentation and she will continued to be followed by GI and Infectious Diseases. Elva Mack MD
--- NOTE | 2017-05-12 17:41 | CP.PCM.CON ---
History of Present Illness - History of Present Illness History of Present Illness: 86 year old female with PMH of dyslipidemia, carotid artery stenosis, COPD, HTN , glaucoma, cataracts, hiatal hernia, right breast cyst as initially admitted in [facility] because of knee swelling and was found to have probable pseudogout. She was noted to have cough nd was eventually found to have left lower healthcare-associated pneumonia and has been on antibiotics. She is now transferred to [facility] for continued medical therapy and physical rehab. Infectious Diseases consult is requested to see if she still needs antibiotics. Currently she is still complaining of some weakness and deconditioning. She denies fever or chills, no colds, cough is better, breathing is better, less knee pain, no chest pain, no headache or dizziness, no abdominal pain, no diarrhea, no dysuria. Review of Systems - Review of Systems All systems: reviewed and no additional remarkable complaints except (as per HPI ) Past Patient History - Infectious Disease Hx of Infectious Diseases: None - Past Social History Smoking Status: Former Smoker - CARDIAC Hx Cardiac Disorders: Yes Hx Hypertension: Yes - PULMONARY Hx Chronic Obstructive Pulmonary Disease (COPD): Yes - NEUROLOGICAL Hx Neurological Disorder: Yes Hx Dizziness: Yes - HEENT Hx HEENT Problems: Yes (WEARS RX GLASSES, COWLITZ) Hx Cataracts: Yes Hx Glaucoma: Yes - RENAL Hx Chronic Kidney Disease: No - ENDOCRINE/METABOLIC Hx Endocrine Disorders: Yes Hx Hypothyroidism: Yes - HEMATOLOGICAL/ONCOLOGICAL Hx Blood Disorders: No - INTEGUMENTARY Hx Dermatological Problems: No - MUSCULOSKELETAL/RHEUMATOLOGICAL Hx Falls: Yes - GASTROINTESTINAL Hx Gastrointestinal Disorders: Yes (CONSTIPATION,HIATAL HERNIA,COLITIS) - GENITOURINARY/GYNECOLOGICAL Hx Genitourinary Disorders: No Hx Reproductive Disorders: No - PSYCHIATRIC Hx Psychophysiologic Disorder: No Hx Depression: No Hx Emotional Abuse: No Hx Physical Abuse: No Hx Substance Use: No - SURGICAL HISTORY Hx Surgeries: Yes Hx Appendectomy: Yes Hx Cholecystectomy: Yes Other/Comment: r breast cyst removed - ANESTHESIA Hx Anesthesia: Yes Meds Allergies/Adverse Reactions: Allergies Allergy/AdvReac Type Severity Reaction Status Date / Time cortisone Allergy RASH Verified 05/11/17 20:50 iodine Allergy RASH Verified 05/11/17 20:50 cortisone Allergy SWELLING Uncoded 05/11/17 20:50 flu vaccine Allergy RASH Uncoded 05/11/17 20:50 - Medications Medications: Current Medications Acetaminophen (Tylenol 325mg Tab) 650 mg PO Q4H PRN PRN Reason: Pain, moderate (4-7) Atenolol (Tenormin) 25 mg PO DAILY [facility] Docusate Sodium (Colace) 100 mg PO TID [facility] Amino Acids (Clinimix 4.25/5 % (1000 Ml)) 1,000 mls @ 42 mls/hr IV .[id number] [facility] Last Admin: 05/11/17 21:12 Dose: 42 mls/hr Latanoprost (Xalatan Opht) 0.05 ml OU HS [facility] Last Admin: 05/11/17 22:37 Dose: Not Given Levofloxacin (Levaquin) 750 mg PO DAILY [facility] Levothyroxine Sodium (Synthroid) 75 mcg PO 0600 [facility] Last Admin: 05/12/17 06:02 Dose: 75 mcg Pantoprazole Sodium (Protonix Inj) 40 mg IVP 0600,1800 [facility] Last Admin: 05/12/17 06:02 Dose: 40 mg Ursodiol (Actigall) 300 mg PO 0800,1800 [facility] Physical Exam - Constitutional Appears: Non-toxic, No Acute Distress - Head Exam Head Exam: NORMAL INSPECTION - Neck Exam Neck exam: Negative for: Meningismus - Respiratory Exam Respiratory Exam: Decreased Breath Sounds - Cardiovascular Exam Cardiovascular Exam: +S1, +S2 - GI/Abdominal Exam GI & Abdominal Exam: Soft. absent: Tenderness Results - Vital Signs Recent Vital Signs: Last Vital Signs Temp 98.6 F 05/11/17 22:31 Pulse 73 05/11/17 22:31 Resp 18 05/11/17 22:31 BP 109/53 L 05/11/17 22:31 Pulse Ox Assessment & Plan - Assessment and Plan (Free Text) Plan: Assessment sepsis with left lower lobe healthcare-associated pneumonia Left knee swelling, likely pseudogout S/P arthrocentesis dyslipidemia carotid artery stenosis COPD HTN glaucoma cataracts hiatal hernia right breast cyst S/P appendectomy S/P cholecystectomy Plan on PO Levaquin (day 8) - will d/c antibiotics after today cultures have been negative, PCT is 0.42 will continue to monitor clinically
[2017-05-12] MEDS: Amino/Dext 4.25/5 1,000 ML IV SCH (21:02)
[2017-05-12] MEDS: Latanoprost 2.5 ml Opht Soln OU SCH (21:03)
[2017-05-13] MEDS: Levothyroxine 75 MCG TAB PO SCH (05:22)
[2017-05-13] MEDS ORDERED: Pantoprazole 40mg/100ml IVPB 40 MG/100 ML BAG IVPB ONE (06:30)
[2017-05-13 07:24] LABS: BASO # 0.02 K/mm3 (0.0-2.0); BASO % 0.2 % (0.0-3.0); EOS # 0.1 (0.0-0.7); EOS % 0.5 % (1.5-5.0); GRAN # 7.73 (1.4-6.5); GRAN % 81.8 % (50.0-68.0); HEMATOCRIT 29.9 % (36.0-48.0); LYMPH # 1.1 (1.2-3.4); LYMPH % 11.3 % (22.0-35.0); MEAN CELL VOLUME 90.6 fl (80.0-105.0); MEAN CORPUSCULAR HEMOGLOBIN 30.6 pg (25.0-35.0); MEAN CORPUSCULAR HGB CONC 33.8 g/dl (31.0-37.0); MONO # 0.6 (0.1-0.6); MONO % 6.2 % (1.0-6.0); RED CELL DISTRIBUTION WIDTH 12.6 % (11.5-14.5); WHITE BLOOD COUNT 9.5 10^3/ul (4.5-11.0)
[2017-05-13 07:35] LABS: ALB/GLOB RATIO 1.1 (1.1-1.8); ALKALINE PHOSPHATASE 71 U/L (38-126); ALT/SGPT 27 U/L (7-56); AST/SGOT 22 U/L (14-36); BILIRUBIN,TOTAL 0.4 mg/dL (0.2-1.3); BLOOD UREA NITROGEN 14 mg/dL (7-21); CALCIUM 8.5 mg/dL (8.4-10.5); CARBON DIOXIDE 32 mmol/L (21-33); CHLORIDE 93 mmol/L (98-107); GFR AFRICAN-AMERICAN > 60; GLUCOSE,RANDOM 101 mg/dL (70-110); POTASSIUM 3.5 mmol/L (3.6-5.0); SODIUM 132 mmol/L (132-148); TOTAL PROTEIN 5.5 g/dL (5.8-8.3)
[2017-05-13] MEDS ORDERED: Potassium Chloride 20 mEq ER Tab PO ONE (10:53)
--- NOTE | 2017-05-13 13:03 | CON ---
NEUROLOGY CONSULTATION DATE: 05/13/2017 CHIEF COMPLAINT: Evaluated for the paresthesia of the feet. HISTORY OF PRESENT ILLNESS: This is an 87-year-old woman with past medical history of dyslipidemia, carotid artery stenosis, COPD, hypertension, glaucoma, cataracts, hiatal hernia, and right breast cyst, initially admitted to [facility] because of knee swelling and found to have probable pseudogout, then noted to have cough and was essentially found to have a left lower lobe healthcare-associated pneumonia and was placed on antibiotics. Now she is on for deconditioned state and generalized weakness as well as continued medical antibiotic therapy. I was consulted because she had numbness of her feet. Currently, she mentions that she has numbness of her toes up to her calves as well as numbness in her hands intermittently. She has underlying arthritis as well. After a B12 injection was given, her B12 level now is 999. Her potassium is low today and mildly dehydrated. She is having a very poor p.o. intake. Otherwise, she is moving all extremities. PAST MEDICAL HISTORY: History of carotid artery stenosis, COPD, hypertension, glaucoma, cataracts, hiatal hernia, right breast cyst, arthritis, and B12 deficiency. REVIEW OF SYSTEMS: A 14-point review of systems is negative except as per the HPI. SOCIAL HISTORY: No illicit drug use, smoking, or ETOH abuse at this time. ALLERGIES: CORTISONE, IODINE, AND FLU VACCINE. MEDICATIONS: Reviewed via nurse's reconciliation sheet. FAMILY HISTORY: Noncontributory. PHYSICAL EXAMINATION: VITAL SIGNS: Temperature of 97.4, pulse rate of 82, blood pressure of 92/50, respiratory rate of 20, and oxygen saturation 90% on room air. GENERAL: The patient is sitting up in bed, in no acute distress. HEENT: Atraumatic and normocephalic. PERRLA. Extraocular muscles are intact. NECK: Supple. No JVD. No adenopathy noted. LUNGS: Decreased breath sounds bilaterally. HEART: S1 and S2 normal rate and rhythm. No murmurs, rubs, or gallops. ABDOMEN: Soft, nontender, and nondistended. Bowel sounds are present. EXTREMITIES: No clubbing. No cyanosis. Peripheral pulses 2+ felt bilaterally. NEUROLOGIC: The patient is alert and oriented to person, place, and year. Recall after five minutes is 0/3. Attention span and thought process slow. Cranial nerves II through XII intact. Motor exam, moves all extremities equally. Increased tone throughout. No pronator drift seen. Sensory exam, decreased light touch to pinprick up to the calves bilaterally, decreased vibration to the toes. DTRs are 1+ throughout. Coordination: [id number]-ex-ngyp intact. Gait is deferred for now. LABORATORY DATA: Sodium 138, potassium 4.7, chloride 96, carbon dioxide of 21, BUN of 20, and creatinine of 0.8. Random glucose of 130. ASSESSMENT AND PLAN: This is an 87-year-old woman with past medical history of gout, arteriosclerotic disease, hypothyroidism, malnutrition, degenerative arthritis, chronic obstructive pulmonary disease, glaucoma, cataracts, and hiatal hernia admitted to [facility] for initial knee swelling, found to have a probable pseudogout, and was noted to have cough and was eventually found to have left lower lobe healthcare-associated pneumonia and is on continued intravenous antibiotics therapy and physical therapy for her underlying deconditioned state and generalized weakness and was consulted for numbness of her toes. Her numbness of the toes could be residual. Has B12 deficiency. Currently, her B12 level is normal. She possibly has underlying degenerative arthritis as well as underlying some mild peripheral neuropathy from malnutrition causing her to have paresthesias of her extremities. At this time, I recommend; 1. Continue with physical therapy for deconditioned state. 2. Increase protein intake and increase diet as tolerated. 3. We will recommend as an outpatient to be on alpha-lipoic acid 600 mg p.o. b.i.d. for neuropathic relief. 4. Could consider if the paresthesias are intolerable to be a low-dose gabapentin 100 mg p.o. at bedtime. 5. As an outpatient, we would like to do an EMG in my office to assess for degree of neuropathy. At this time could give her antibiotic therapy for underlying pneumonia. Thank you for this consult. Reymundo Torrez MD
--- NOTE | 2017-05-13 14:05 | PN ---
SUBJECTIVE: An 87-year-old female, resting comfortably in a chair this morning on transitional care unit. Nursing staff relates that the patient this morning had her diet advanced from clear liquid to pureed. Shortly after she had some farina, she complained of some nausea, this has been communicated to the mmi teacher. She is not offering any other specific complaint. She does have some tingling in the soles of her feet. There is a history of B12 deficiency. Her recent B12 level was within a normal range. She recently received a B12 injection, but she does have marked degenerative arthritis of the spine and of the knees with gait disorder. PHYSICAL EXAMINATION: VITAL SIGNS: Showed temp at 97.4, blood pressure is 104/56, pulse is 73, oxygen sat is 99% on room air, respiratory rate is 20. GENERAL: She is alert and oriented x3. NECK: Supple. LUNGS: Clear. HEART: S1 and S2 rhythm. ABDOMEN: Soft with positive bowel sounds. EXTREMITIES: No evidence of edema. LABORATORY DATA: She has a WBC of 9.5, RBC 3.3, hemoglobin 11.1, hematocrit 29.9 and platelet count 289. Chemistry shows sodium 132, potassium 3.5, chloride 93, CO2 of 32, BUN is 14, creatinine is 0.6. ALT, AST and alkaline phosphatase are normal. Her total protein is 5.5. Her albumin is 2.9. Calcium is 8.5. PLAN: 1. We will request neurology evaluation. 2. We will replete her potassium and follow up with chemistry and magnesium level. 3. Discussion with GI concerning her treatment and management plan. MEDICATIONS: She is currently on Actigall 300 mg twice a day, hyperalimentation, Colace 100 mg t.i.d., Levaquin 750 daily for pneumonia, Protonix b.i.d. 40 mg, Synthroid 75 mcg daily, Tenormin 25 mg daily, Tylenol 2 tabs q. 4 hours p.r.n. for moderate pain, Xalatan eye drops for her glaucoma and Zofran 4 mg IV q. 8 hours for nausea. Elva Mack MD
--- NOTE | 2017-05-13 14:36 | CP.PCM.PN ---
Subjective - Date & Time of Evaluation Date of Evaluation: 05/13/17 Time of Evaluation: 11:40 - Subjective Subjective: Still feels de-conditioned, no fevers overnight, not in distress. Objective - Vital Signs/Intake and Output Vital Signs (last 24 hours): Temp Pulse Resp BP Pulse Ox 97.4 F L 73 20 104/56 L 99 05/12/17 16:17 05/12/17 16:17 05/12/17 16:17 05/12/17 16:17 05/12/17 16:17 - Medications Medications: Current Medications Acetaminophen (Tylenol 325mg Tab) 650 mg PO Q4H PRN PRN Reason: Pain, moderate (4-7) Last Admin: 05/13/17 07:21 Dose: 650 mg Atenolol (Tenormin) 25 mg PO DAILY [facility] Last Admin: 05/12/17 10:45 Dose: 25 mg Docusate Sodium (Colace) 100 mg PO TID [facility] Last Admin: 05/12/17 17:43 Dose: 100 mg Amino Acids (Clinimix 4.25/5 % (1000 Ml)) 1,000 mls @ 42 mls/hr IV .[id number] [facility] Last Admin: 05/12/17 21:02 Dose: 42 mls/hr Pantoprazole Sodium (Protonix 40mg Ivpb) 40 mg in 100 mls @ 200 mls/hr IVPB 0600,1800 [facility] Latanoprost (Xalatan Opht) 0.05 ml OU HS [facility] Last Admin: 05/12/17 21:03 Dose: Not Given Levofloxacin (Levaquin) 750 mg PO DAILY [facility] Last Admin: 05/12/17 10:46 Dose: 750 mg Levothyroxine Sodium (Synthroid) 75 mcg PO 0600 [facility] Last Admin: 05/13/17 05:22 Dose: 75 mcg Ondansetron HCl (Zofran Inj) 4 mg IVP Q8H PRN; Protocol PRN Reason: Nausea/Vomiting Ursodiol (Actigall) 300 mg PO 0800,1800 [facility] Last Admin: 05/13/17 08:09 Dose: 300 mg - Labs Labs: 05/13/17 07:00 05/13/17 07:00 - Constitutional Appears: Non-toxic, No Acute Distress - Head Exam Head Exam: NORMAL INSPECTION - Neck Exam Neck Exam: absent: Meningismus - Respiratory Exam Respiratory Exam: Decreased Breath Sounds - Cardiovascular Exam Cardiovascular Exam: +S1, +S2 - GI/Abdominal Exam GI & Abdominal Exam: Soft. absent: Tenderness Assessment and Plan - Assessment and Plan (Free Text) Plan: Assessment sepsis with left lower lobe healthcare-associated pneumonia, clinically improved Left knee swelling, likely pseudogout S/P arthrocentesis dyslipidemia carotid artery stenosis COPD HTN glaucoma cataracts hiatal hernia right breast cyst S/P appendectomy S/P cholecystectomy Plan S/P 8 days of PO Levaquin cultures have been negative, PCT is 0.42 will continue to monitor clinically off antibiotics
[2017-05-13] MEDS: Pantoprazole 40mg/100ml IVPB 40 MG/100 ML BAG IVPB SCH (17:47)
[2017-05-13] MEDS ORDERED: Pantoprazole 40mg/100ml IVPB 40 MG/100 ML BAG IVPB SCH (18:00)
--- NOTE | 2017-05-13 21:05 | PN ---
DATE: 05/13/2017 SUBJECTIVE: This patient was seen and evaluated earlier today. The patient feels better slightly, but he is very weak and wants to have a pureed food. PHYSICAL EXAMINATION: VITAL SIGNS: Temperature 97.4, blood pressure 93/50, respirations 12, O2 saturation 100%. HEENT: Atraumatic, anicteric. NECK: Supple. HEART: S1 and S2 heard. LUNGS: Bilateral air entry present. ABDOMEN: Soft. LABORATORY DATA: Hemoglobin 10.1, hematocrit 29.9, WBC 9.5, platelets 289. Chemistries, potassium 3.5, sodium 132. IMPRESSION: This 87-year-old patient admitted with a large hiatus hernia, status post repair in the past, has history of gastroesophageal reflux disease, history of common bile duct stones, admitted with pneumonia and also urinary tract infection. The patient is very cachectic, malnourished. The patient has a very poor p.o. intake. The patient was not able to tolerate solid food initially, put on liquid diet and also peripheral parenteral nutrition. The patient is slowly improving. PLAN: 1. Continue the proton pump inhibitor. 2. We will start the patient on a small dose of pureed food. 3. Follow up of the electrolytes supplementary potassium. 4. The patient was slightly nauseous after the initial pureed food, but subsequently the patient was able to tolerate it. The patient mentioned to me that normally she takes once or maximum twice a day of the food. She is not able to take three times meal. The patient was advised to take small amount as tolerating. Thank you very much allowing us to participate in the care of your patient. Abdifatah Smith MD
[2017-05-13] MEDS: Amino/Dext 4.25/5 1,000 ML IV SCH (21:09)
[2017-05-13] MEDS: Latanoprost 2.5 ml Opht Soln OU SCH (21:10)
[2017-05-14] MEDS: Pantoprazole 40mg/100ml IVPB 40 MG/100 ML BAG IVPB SCH ×2 (05:43→17:48)
[2017-05-14] MEDS: Levothyroxine 75 MCG TAB PO SCH (05:44)
[2017-05-14 07:28] LABS: BLOOD UREA NITROGEN 14 mg/dL (7-21); CALCIUM 8.5 mg/dL (8.4-10.5); CARBON DIOXIDE 32 mmol/L (21-33); CHLORIDE 97 mmol/L (98-107); GFR AFRICAN-AMERICAN > 60; GLUCOSE,RANDOM 97 mg/dL (70-110); MAGNESIUM 1.6 mg/dL (1.7-2.2); POTASSIUM 3.6 mmol/L (3.6-5.0); SODIUM 135 mmol/L (132-148)
[2017-05-14] MEDS ORDERED: Magnesium Sulfate 2 GM in Sodium Chloride 0.9% 100 ML IV ONE (09:33)
--- NOTE | 2017-05-14 11:34 | PN ---
SUBJECTIVE: An 87-year-old female resting comfortably in bed this morning. She states that she had some farina this morning which did not cause too much discomfort, although she gets early satiety and a fullness sensation with small amounts of food. Nursing staff related there were no particular problems during the day or night. PHYSICAL EXAMINATION: GENERAL: She is alert and oriented x3. VITAL SIGNS: Show a temp of 97.4 and a pulse is 70, manual blood pressure is 100/50, her oxygen sat is 99% on room air. NECK: Supple. No JVD. LUNGS: Clear with diminished breath sounds at the bases. HEART: S1 and S2 rhythm. ABDOMEN: Soft, positive bowel sounds. EXTREMITIES: No evidence of edema. LABORATORY DATA: Shows normal electrolytes. Her potassium is now 3.6, her magnesium is 1.6, BUN is 14 with a creatinine of 0.6. MEDICATIONS: She currently is on Actigall 300 mg b.i.d., IV hyperalimentation, Colace 100 mg t.i.d., Protonix b.i.d., Synthroid 75 mcg daily, Tenormin 25 mg daily, Xalatan eyedrops to the left eye at bedtime, Tylenol p.r.n. for moderate pain. Her antibiotic Levaquin for her pneumonia has been discontinued. She is being followed by infectious disease. She is also being followed by GI closely monitoring the patient's diet and she will be followed off antibiotics closely. She was seen by neurology for her sensation of numbness in her feet with a history of B12 deficiency and degenerative arthritis. A recommendation at this time by neurology is to continue physical therapy, increase her protein intake, outpatient alpha-lipoic acid for neuropathic relief, may consider gabapentin at bedtime and an EMG as an outpatient for followup. We will replete her serum magnesium and follow up her labs and continue current physical therapy. Elva Mack MD
--- NOTE | 2017-05-14 11:55 | PN ---
Error. no doctation MTDD
--- NOTE | 2017-05-14 16:56 | CP.PCM.PN ---
Subjective - Date & Time of Evaluation Date of Evaluation: 05/14/17 Time of Evaluation: 11:25 - Subjective Subjective: Comfortable, still feels weak but a little better, cough is improved, no fevers overnight. Objective - Vital Signs/Intake and Output Vital Signs (last 24 hours): Temp Pulse Resp BP Pulse Ox 97.4 F L 70 12 93/50 L 100 05/13/17 10:00 05/13/17 11:24 05/13/17 10:00 05/13/17 11:24 05/13/17 10:00 - Medications Medications: Current Medications Acetaminophen (Tylenol 325mg Tab) 650 mg PO Q4H PRN PRN Reason: Pain, moderate (4-7) Last Admin: 05/13/17 07:21 Dose: 650 mg Atenolol (Tenormin) 25 mg PO DAILY [facility] Last Admin: 05/13/17 11:24 Dose: Not Given Docusate Sodium (Colace) 100 mg PO TID [facility] Last Admin: 05/13/17 17:46 Dose: 100 mg Amino Acids (Clinimix 4.25/5 % (1000 Ml)) 1,000 mls @ 42 mls/hr IV .[id number] [facility] Last Admin: 05/13/17 21:09 Dose: 42 mls/hr Pantoprazole Sodium (Protonix 40mg Ivpb) 40 mg in 100 mls @ 200 mls/hr IVPB 0600,1800 [facility] Last Admin: 05/14/17 05:43 Dose: 200 mls/hr Magnesium Sulfate 2 gm/ Sodium (Chloride) 104 mls @ 102 mls/hr IV ONCE ONE Stop: 05/14/17 10:34 Latanoprost (Xalatan Opht) 0.05 ml OU HS [facility] Last Admin: 05/13/17 21:10 Dose: 0.05 ml Levothyroxine Sodium (Synthroid) 75 mcg PO 0600 [facility] Last Admin: 05/14/17 05:44 Dose: 75 mcg Ondansetron HCl (Zofran Inj) 4 mg IVP Q8H PRN; Protocol PRN Reason: Nausea/Vomiting Ursodiol (Actigall) 300 mg PO 0800,1800 [facility] Last Admin: 05/14/17 08:26 Dose: 300 mg - Labs Labs: 05/13/17 07:00 05/14/17 06:30 - Constitutional Appears: Non-toxic, No Acute Distress, Cachectic - Head Exam Head Exam: NORMAL INSPECTION - ENT Exam ENT Exam: Mucous Membranes Moist - Neck Exam Neck Exam: absent: Meningismus - Respiratory Exam Respiratory Exam: Decreased Breath Sounds - Cardiovascular Exam Cardiovascular Exam: +S1, +S2 - GI/Abdominal Exam GI & Abdominal Exam: Soft. absent: Tenderness Assessment and Plan - Assessment and Plan (Free Text) Plan: Assessment sepsis with left lower lobe healthcare-associated pneumonia, clinically improved and S/P treatment Left knee swelling, likely pseudogout S/P arthrocentesis dyslipidemia carotid artery stenosis COPD HTN glaucoma cataracts hiatal hernia right breast cyst S/P appendectomy S/P cholecystectomy Plan S/P 8 days of PO Levaquin cultures have been negative, PCT is 0.42 will continue to monitor clinically off antibiotics since she is at risk for nosocomial infections
--- NOTE | 2017-05-14 20:20 | PN ---
DATE: 05/14/2017 SUBJECTIVE: This patient was seen and evaluated earlier today. The patient appears much more comfortable today. Tolerating the pureed diet slightly better than yesterday. PHYSICAL EXAMINATION: VITAL SIGNS: Afebrile, pulse is 79, and blood pressure 100/55. HEENT: Atraumatic and anicteric. NECK: Supple. HEART: S1 and S2 heard. LUNGS: Bilateral air entry present. ABDOMEN: Soft. Mild tenderness present. Deep palpation to epigastric area. EXTREMITIES: No edema. No cyanosis. LABORATORY DATA: No recent labs today. IMPRESSION: This 87-year-old patient with a large hiatus hernia, paraesophageal component, history of significant esophageal reflux disease on IV Protonix now. Slowly is able to tolerate the pureed diet slowly. The patient is on PPN. Admitted with severe sepsis, urinary tract infection and pneumonia. History of CBD stone . PLAN: The plan is to continue the Actigall and Protonix. Continue the pureed diet. Presently, she is off the antibiotics. Thank you very much allowing us to participate in the care of your patient. Abdifatah Smith MD MTDD
[2017-05-14] MEDS: Amino/Dext 4.25/5 1,000 ML IV SCH (21:03)
[2017-05-14] MEDS: Latanoprost 2.5 ml Opht Soln OU SCH (21:03)
[2017-05-15] MEDS: Pantoprazole 40mg/100ml IVPB 40 MG/100 ML BAG IVPB SCH ×2 (05:21→17:30)
[2017-05-15] MEDS: Levothyroxine 75 MCG TAB PO SCH (05:22)
[2017-05-15 06:46] LABS: HEMATOCRIT 31.3 % (36.0-48.0); MEAN CELL VOLUME 90.7 fl (80.0-105.0); MEAN CORPUSCULAR HEMOGLOBIN 30.7 pg (25.0-35.0); MEAN CORPUSCULAR HGB CONC 33.9 g/dl (31.0-37.0); MEAN PLATELET VOLUME 8.7 fl (7.0-11.0); RED CELL DISTRIBUTION WIDTH 13.5 % (11.5-14.5); WHITE BLOOD COUNT 10.7 10^3/ul (4.5-11.0)
[2017-05-15 06:57] LABS: ALB/GLOB RATIO 1.2 (1.1-1.8); ALKALINE PHOSPHATASE 73 U/L (38-126); ALT/SGPT 29 U/L (7-56); AST/SGOT 17 U/L (14-36); BILIRUBIN,TOTAL 0.4 mg/dL (0.2-1.3); BLOOD UREA NITROGEN 15 mg/dL (7-21); CALCIUM 8.4 mg/dL (8.4-10.5); CARBON DIOXIDE 33 mmol/L (21-33); CHLORIDE 98 mmol/L (95-110); GFR AFRICAN-AMERICAN > 60; GLUCOSE,RANDOM 97 mg/dL (70-110); PHOSPHOROUS 2.5 mg/dL (2.5-4.5); POTASSIUM 3.7 mmol/L (3.6-5.0); SODIUM 136 mmol/L (132-148); TOTAL PROTEIN 5.6 g/dL (5.8-8.3)
--- NOTE | 2017-05-15 12:01 | PN ---
DATE: SUBJECTIVE: An 87-year-old female, resting quietly this morning on transitional care unit. The nursing staff relates that they were no particular problems during the night. The patient is on a pureed diet day #2. She seems to be tolerating it, however, she states that she feels full after small amounts of food. She is also continuing on her hyperalimentation. PHYSICAL EXAMINATION: VITAL SIGNS: Her temperature is 98, her pulse is 80, her blood pressure is 115/61, and her oxygen saturation 96% on room air. NECK: Supple. No JVD. LUNGS: Show diminished breath sounds at the bases. HEART: S1 and S2. ABDOMEN: Soft and scaphoid. Positive bowel sounds. EXTREMITIES: Show no evidence of edema. NEUROLOGIC: She is alert and oriented x3. LABORATORY DATA: Shows a WBC of 10.7, RBC of 3.45, hemoglobin 10.6, hematocrit 31.3, and platelet count is 310. Chemistry shows normal electrolytes, BUN is 15, creatinine is 0.6. Serum magnesium is now 2. Total protein is 5.6, albumin is 3. MEDICATIONS: The patient is on Actigall 300 mg b.i.d.,peripheral hyperalimentation, Colace 100 mg t.i.d., Protonix b.i.d. Synthroid 75 mcg daily, Tenormin 25 mg daily, and Tylenol two time q. 4 hours p.r.n. for moderate pain, latanoprost eye drops to the left eye, Bentyl and Zofran 4 mg IV q. 8 hours p..p.r.n. PROBLEMS: 1. Large hiatal hernia,which precludes the ability of the patient to eat normal quantity of food and regular diet, currently being fed with a purred diet, close observation is ongoing to see how she tolerates this, hyperalimentation is continued. 2. She has some dysphagia secondary to the hiatal hernia. She continues on the Protonix IV. 3. She has a hypothyroid disorder, she is on Synthroid replacement therapy. 4. She has arteriosclerotic heart disease. 5. She has a history of peripheral neuropathy with B12 deficiency. 6. She has a decondition state. 7. She has a history of cholecystectomy. 8. She has a history of glaucoma. PLAN: We will continue physical therapy on the unit and continue current GI recommendations for nutritional support. The staff has been made aware of the patient's medical condition and treatment plan and she continues with physical therapy Elva Mack MD
--- NOTE | 2017-05-15 12:56 | CP.PCM.PN ---
Subjective - Date & Time of Evaluation Date of Evaluation: 05/15/17 Time of Evaluation: 10:20 - Subjective Subjective: Seen and examined at the bedside earlier this morning, chart was reviewed. No acute overnight events reported. Patient is out of bed reported to tolerate bowlof cream of wheat and juice, not much nausea or discomfort.patient has not had BM since last week. Objective - Vital Signs/Intake and Output Vital Signs (last 24 hours): Temp Pulse Resp BP Pulse Ox 98 F 80 14 117/65 96 05/14/17 16:00 05/14/17 16:00 05/14/17 16:00 05/15/17 10:01 05/14/17 16:00 - Medications Medications: Current Medications Acetaminophen (Tylenol 325mg Tab) 650 mg PO Q4H PRN PRN Reason: Pain, moderate (4-7) Last Admin: 05/13/17 07:21 Dose: 650 mg Atenolol (Tenormin) 25 mg PO DAILY [facility] Last Admin: 05/15/17 10:01 Dose: 25 mg Docusate Sodium (Colace) 100 mg PO TID [facility] Last Admin: 05/15/17 10:02 Dose: 100 mg Amino Acids (Clinimix 4.25/5 % (1000 Ml)) 1,000 mls @ 42 mls/hr IV .[id number] [facility] Last Admin: 05/14/17 21:03 Dose: 42 mls/hr Pantoprazole Sodium (Protonix 40mg Ivpb) 40 mg in 100 mls @ 200 mls/hr IVPB 0600,1800 [facility] Last Admin: 05/15/17 05:21 Dose: 200 mls/hr Latanoprost (Xalatan Opht) 0.05 ml OU HS [facility] Last Admin: 05/14/17 21:03 Dose: 0.05 ml Levothyroxine Sodium (Synthroid) 75 mcg PO 0600 [facility] Last Admin: 05/15/17 05:22 Dose: 75 mcg Ondansetron HCl (Zofran Inj) 4 mg IVP Q8H PRN; Protocol PRN Reason: Nausea/Vomiting Ursodiol (Actigall) 300 mg PO 0800,1800 [facility] Last Admin: 05/15/17 08:26 Dose: 300 mg - Labs Labs: 05/15/17 06:00 05/15/17 06:00 - Constitutional Appears: No Acute Distress - Head Exam Head Exam: NORMAL INSPECTION - Eye Exam Eye Exam: Normal appearance. absent: Scleral icterus - ENT Exam ENT Exam: Mucous Membranes Moist - Neck Exam Neck Exam: Normal Inspection - Respiratory Exam Respiratory Exam: NORMAL BREATHING PATTERN. absent: Respiratory Distress - Cardiovascular Exam Cardiovascular Exam: +S1, +S2 - GI/Abdominal Exam GI & Abdominal Exam: Soft, Normal Bowel Sounds. absent: Guarding, Tenderness, Rebound - Extremities Exam Extremities Exam: Normal Capillary Refill - Neurological Exam Neurological Exam: Alert, Awake, Oriented x3 Assessment and Plan - Assessment and Plan (Free Text) Assessment: Assessment: Pneumonia Large hiatal hernia History of cholecystectomy with biliary stent/cholangitis Hypothyroidism history of constipation Plan: continue pure diet on PPN Continue Actigall On Colace 3 times a day continue Protonix BID Seen and discussed W/ Dr. Fowler
--- NOTE | 2017-05-15 16:08 | CP.PCM.PN ---
Subjective - Date & Time of Evaluation Date of Evaluation: 05/15/17 Time of Evaluation: 10:50 - Subjective Subjective: Comfortable, not in distress, afebrile, has a little more energy today. Objective - Vital Signs/Intake and Output Vital Signs (last 24 hours): Temp Pulse Resp BP Pulse Ox 98 F 80 14 115/61 96 05/14/17 16:00 05/14/17 16:00 05/14/17 16:00 05/14/17 16:00 05/14/17 16:00 - Medications Medications: Current Medications Acetaminophen (Tylenol 325mg Tab) 650 mg PO Q4H PRN PRN Reason: Pain, moderate (4-7) Last Admin: 05/13/17 07:21 Dose: 650 mg Atenolol (Tenormin) 25 mg PO DAILY [facility] Last Admin: 05/14/17 10:57 Dose: 25 mg Docusate Sodium (Colace) 100 mg PO TID [facility] Last Admin: 05/14/17 17:48 Dose: 100 mg Amino Acids (Clinimix 4.25/5 % (1000 Ml)) 1,000 mls @ 42 mls/hr IV .[id number] [facility] Last Admin: 05/14/17 21:03 Dose: 42 mls/hr Pantoprazole Sodium (Protonix 40mg Ivpb) 40 mg in 100 mls @ 200 mls/hr IVPB 0600,1800 [facility] Last Admin: 05/15/17 05:21 Dose: 200 mls/hr Latanoprost (Xalatan Opht) 0.05 ml OU HS [facility] Last Admin: 05/14/17 21:03 Dose: 0.05 ml Levothyroxine Sodium (Synthroid) 75 mcg PO 0600 [facility] Last Admin: 05/15/17 05:22 Dose: 75 mcg Ondansetron HCl (Zofran Inj) 4 mg IVP Q8H PRN; Protocol PRN Reason: Nausea/Vomiting Ursodiol (Actigall) 300 mg PO 0800,1800 [facility] Last Admin: 05/15/17 08:26 Dose: 300 mg - Labs Labs: 05/15/17 06:00 05/15/17 06:00 - Constitutional Appears: Non-toxic, No Acute Distress - Head Exam Head Exam: NORMAL INSPECTION - ENT Exam ENT Exam: Mucous Membranes Moist - Neck Exam Neck Exam: absent: Meningismus - Respiratory Exam Respiratory Exam: Decreased Breath Sounds - Cardiovascular Exam Cardiovascular Exam: +S1, +S2 - GI/Abdominal Exam GI & Abdominal Exam: Soft. absent: Tenderness Assessment and Plan - Assessment and Plan (Free Text) Plan: Assessment sepsis with left lower lobe healthcare-associated pneumonia, clinically improved and S/P treatment Left knee swelling, likely pseudogout S/P arthrocentesis dyslipidemia carotid artery stenosis COPD HTN glaucoma cataracts hiatal hernia right breast cyst S/P appendectomy S/P cholecystectomy Plan S/P 8 days of PO Levaquin cultures have been negative, PCT is 0.42 will continue to monitor clinically off antibiotics since she is at risk for hospital-acquired infections
[2017-05-15] MEDS: Amino/Dext 4.25/5 1,000 ML IV SCH (20:41)
[2017-05-15] MEDS: Latanoprost 2.5 ml Opht Soln OU SCH (21:03)
[2017-05-16] MEDS: Pantoprazole 40mg/100ml IVPB 40 MG/100 ML BAG IVPB SCH ×2 (05:29→17:45)
[2017-05-16] MEDS: Levothyroxine 75 MCG TAB PO SCH (05:29)
[2017-05-16] MEDS ORDERED: Magnesium Citrate Oral SOL (300 ml) PO ONE (13:45)
--- NOTE | 2017-05-16 13:49 | CP.PCM.PN ---
Subjective - Date & Time of Evaluation Date of Evaluation: 05/16/17 Time of Evaluation: 13:46 - Subjective Subjective: S&E at bedside. No acute overnight events. Tolerated more or puree diet. No BM for about 1 week, passign flatus. No N/V or abdominal pain. Objective - Vital Signs/Intake and Output Vital Signs (last 24 hours): Temp Pulse Resp BP Pulse Ox 97.2 F L 73 12 109/55 L 96 05/16/17 11:20 05/16/17 11:20 05/16/17 11:20 05/16/17 11:20 05/16/17 11:20 Intake and Output: 05/16/17 05/16/17 06:59 18:59 Intake Total 270 Balance 270 - Medications Medications: Current Medications Acetaminophen (Tylenol 325mg Tab) 650 mg PO Q4H PRN PRN Reason: Pain, moderate (4-7) Last Admin: 05/13/17 07:21 Dose: 650 mg Atenolol (Tenormin) 25 mg PO DAILY [facility] Last Admin: 05/16/17 10:11 Dose: 25 mg Docusate Sodium (Colace) 100 mg PO TID [facility] Last Admin: 05/16/17 10:10 Dose: 100 mg Pantoprazole Sodium (Protonix 40mg Ivpb) 40 mg in 100 mls @ 200 mls/hr IVPB 0600,1800 [facility] Last Admin: 05/16/17 05:29 Dose: 200 mls/hr Latanoprost (Xalatan Opht) 0.05 ml OU HS [facility] Last Admin: 05/15/17 21:03 Dose: 0.05 ml Levothyroxine Sodium (Synthroid) 75 mcg PO 0600 [facility] Last Admin: 05/16/17 05:29 Dose: 75 mcg Ondansetron HCl (Zofran Inj) 4 mg IVP Q8H PRN; Protocol PRN Reason: Nausea/Vomiting Ursodiol (Actigall) 300 mg PO 0800,1800 [facility] Last Admin: 05/16/17 07:50 Dose: 300 mg - Labs Labs: 05/15/17 06:00 05/15/17 06:00 - Constitutional Appears: No Acute Distress - Eye Exam Eye Exam: Normal appearance. absent: Scleral icterus - ENT Exam ENT Exam: Mucous Membranes Moist - Neck Exam Neck Exam: Normal Inspection - Respiratory Exam Respiratory Exam: NORMAL BREATHING PATTERN. absent: Respiratory Distress - Cardiovascular Exam Cardiovascular Exam: +S1, +S2 - GI/Abdominal Exam GI & Abdominal Exam: Soft, Normal Bowel Sounds. absent: Guarding, Tenderness, Rebound - Neurological Exam Neurological Exam: Alert, Awake, Oriented x3 Assessment and Plan - Assessment and Plan (Free Text) Assessment: Assessment: Pneumonia Constipation Large hiatal hernia History of cholecystectomy with biliary stent/cholangitis Hypothyroidism history of constipation Plan: continue pure diet plan top DC PPN, pt tolerating po intake, discuss w/ Dr. Mack Continue Actigall On Colace 3 times a day continue Protonix BID give magnesium citrate Seen and discussed W/ Dr. Fowler
--- NOTE | 2017-05-16 15:18 | PN ---
DATE: 05/16/2017 SUBJECTIVE: The patient is in bed in no acute distress, nontoxic. PHYSICAL EXAMINATION VITAL SIGNS: Temperature is 97, blood pressure is 109/50, respiratory rate of 20, heart rate of 73. HEENT: Unremarkable. NECK: Supple. LUNGS: Decreased breath sound. HEART: Normal S1, S2. ABDOMEN: Soft and nontender. LABORATORY EXAMINATION: Reveals a white count of 10, hemoglobin of 10, and platelets of 310. Chemistries reveals a BUN of 15, creatinine of 0.6, and microbiology is not reviewed, review of orders, the patient is off of antibiotics. ASSESSMENT/PLAN The patient is an 87-year-old with sepsis of left lower lobe healthcare-associated pneumonia, status post treatment of left knee swelling, most likely pseudogout, status post arthrocentesis; dyslipidemia; carotid artery stenosis; chronic obstructive lung disease; hypertension; glaucoma; cataracts; hiatal hernia; right breast cyst; status post appendectomy; cholecystectomy, currently now off of antibiotics, afebrile. She is at risk for developing nosocomial infections. Gonsalo Whipple MD
--- NOTE | 2017-05-16 16:41 | PN ---
DATE: SUBJECTIVE: An 87-year-old female on the transitional care unit this morning. Nursing staff relates that the patient states that she has not moved her bowels for several days, the gastroenterology is aware. PHYSICAL EXAMINATION: GENERAL: She is alert and oriented x3. VITAL SIGNS: Temperature of 98, her pulse is 80, her blood pressure is 112/61, respiratory rate is 20, oxygen sat is 95% on room air. LUNGS: Show diminished breath sounds at the bases. HEART: S1 and S2 rhythm. ABDOMEN: Soft and scaphoid. Positive bowel sounds. EXTREMITIES: Show no evidence of edema. Currently, the patient is receiving hyperalimentation along with a pureed diet. She is tolerating the pureed diet, but eating very small amounts. After discussion with GI, we will discontinue the hyperalimentation, monitor the patient closely on this pureed diet. She and her family are fully aware that there is a need for her to eat small frequent meals during the course of the day. At this particular point in time, she does not wish to go to a subacute rehab. We will continue with her physical therapy on the transitional care unit. MEDICATIONS: She will continue on current Actigall, Colace, Protonix, Synthroid, Tenormin, Tylenol and Xalatan eyedrops. ASSESSMENT AND PLAN: We will review with GI regarding a laxative regimen for this patient. She has a large hiatal hernia with dysphagia symptomatology, feels full with very small amounts of food. We are attempting to adjust her diet, so she receives adequate nutrition. She has a past medical history of cholecystectomy, hypothyroid disease, atherosclerotic heart disease, dysphagia, esophageal ulcers, B12 deficiency and glaucoma. Elva Mack MD
[2017-05-16] MEDS: Latanoprost 2.5 ml Opht Soln OU SCH (21:34)
[2017-05-17] MEDS: Levothyroxine 75 MCG TAB PO SCH (05:24)
[2017-05-17] MEDS: Pantoprazole 40mg/100ml IVPB 40 MG/100 ML BAG IVPB SCH ×2 (05:24→17:21)
--- NOTE | 2017-05-17 11:51 | PN ---
DATE: SUBJECTIVE: An 87-year-old female, resting comfortably in bed this morning. Today is the first day and her hyperalimentation has been discontinued. She is receiving a pureed diet. She says that she did move her bowels after using some citrate of magnesia. Nurses relate that there were no particular problems during the day. PHYSICAL EXAMINATION: GENERAL: She is alert and oriented x3. VITAL SIGNS: This morning of 98.2 temperature, pulse is 91, blood pressure is 103/62, and oxygen saturation is 94% on room air. NECK: Supple. No JVD. LUNGS: Clear. HEART: S1 and S2 rhythm. ABDOMEN: Soft with positive bowel sounds. EXTREMITIES: No evidence of edema. ASSESSMENT AND PLAN: The patient is receiving modified diet because of her dysphagia and hiatal hernia, being followed by Gastrointestinal and intravenous Protonix. She is receiving physical therapy on the unit because of the generalized decondition state. She has B12 deficiency with numbness in the lower extremity. She has been seen by Neurology with recommendation for outpatient EMG. We will continue current level of care. The patient has been requesting to have additional physical therapy. We are awaiting the insurance decision. Elva Mack MD
[2017-05-17] MEDS ORDERED: POLYETHYLENE GLYCOL 3350 17 GM/Dose PACKET PO SCH (13:20)
--- NOTE | 2017-05-17 13:25 | CP.PCM.PN ---
Subjective - Date & Time of Evaluation Date of Evaluation: 05/17/17 Time of Evaluation: 10:00 - Subjective Subjective: seen and examined at the bedside earlier today, patient had magnesium citrate and had multiple bowel movements with relief. Denies nausea, vomiting, or abdominal pain. No reports of any melena or bright red blood per rectum. She was able to tolerateome pancakes and coffee this morning Objective - Vital Signs/Intake and Output Vital Signs (last 24 hours): Temp Pulse Resp BP Pulse Ox 98.2 F 91 H 20 97/50 L 94 L 05/17/17 06:00 05/17/17 10:00 05/17/17 06:00 05/17/17 10:00 05/17/17 06:00 - Medications Medications: Current Medications Acetaminophen (Tylenol 325mg Tab) 650 mg PO Q4H PRN PRN Reason: Pain, moderate (4-7) Last Admin: 05/13/17 07:21 Dose: 650 mg Atenolol (Tenormin) 25 mg PO DAILY [facility] Last Admin: 05/17/17 10:00 Dose: Not Given Docusate Sodium (Colace) 100 mg PO TID [facility] Last Admin: 05/17/17 10:02 Dose: Not Given Pantoprazole Sodium (Protonix 40mg Ivpb) 40 mg in 100 mls @ 200 mls/hr IVPB 0600,1800 [facility] Last Admin: 05/17/17 05:24 Dose: 200 mls/hr Latanoprost (Xalatan Opht) 0.05 ml OU HS [facility] Last Admin: 05/16/17 21:34 Dose: 0.05 ml Levothyroxine Sodium (Synthroid) 75 mcg PO 0600 [facility] Last Admin: 05/17/17 05:24 Dose: 75 mcg Ondansetron HCl (Zofran Inj) 4 mg IVP Q8H PRN; Protocol PRN Reason: Nausea/Vomiting Polyethylene Glycol (Miralax) 17 gm PO PRN PRN PRN Reason: Constipation Ursodiol (Actigall) 300 mg PO 0800,1800 [facility] Last Admin: 05/17/17 07:46 Dose: 300 mg - Labs Labs: 05/15/17 06:00 05/15/17 06:00 - Constitutional Appears: No Acute Distress - Head Exam Head Exam: NORMOCEPHALIC - Eye Exam Eye Exam: Normal appearance. absent: Scleral icterus - Neck Exam Neck Exam: Normal Inspection - Cardiovascular Exam Cardiovascular Exam: +S1, +S2 - GI/Abdominal Exam GI & Abdominal Exam: Soft, Normal Bowel Sounds. absent: Guarding, Tenderness, Rebound - Neurological Exam Neurological Exam: Alert, Awake, Oriented x3 Assessment and Plan - Assessment and Plan (Free Text) Assessment: Assessment: Pneumonia Constipation Large hiatal hernia History of cholecystectomy with biliary stent/cholangitis Hypothyroidism history of constipation Plan: continue pure diet Continue Actigall On Colace 3 times a day continue Protonix BID MiraLAX prn constipation, to be given if no BM in 48 hours Seen and discussed W/ Dr. Fowler
--- NOTE | 2017-05-17 16:51 | PN ---
DATE: 05/17/2017 SUBJECTIVE: The patient is in bed, in no acute distress, was seen early this morning in room #322. OBJECTIVE: VITAL SIGNS: On exam, temperature is 98, blood pressure is 97/50 and respiratory rate of 16. EXAMINATION OF HEENT: Unremarkable. NECK: Supple. LUNGS: Have decreased breath sounds. HEART EXAM: Normal S1 and S2. ABDOMEN EXAMINATION: Soft and nontender. LABORATORY EXAMINATION: Reveals a white count of 10,000; hemoglobin of 10 and platelets of 310. Chemistries reveal a BUN of 15 and creatinine of 0.6. Microbiology is noted. ASSESSMENT AND PLAN: An 87-year-old with sepsis of the left lower lobe, healthcare-associated pneumonia, status post treatment; left knee swelling, most likely a pseudogout, status post arthrocentesis; dyslipidemia; carotid artery stenosis; chronic obstructive lung disease; hypertension; glaucoma; cataract; hiatal hernia; right breast cyst and status post appendectomy, cholecystectomy. Currently, the patient is off of antibiotics, afebrile. The patient is at risk for developing nosocomial infections. Review of the orders confirms the patient to be off of antibiotics. Gonsalo Whipple MD
[2017-05-17] MEDS: Latanoprost 2.5 ml Opht Soln OU SCH (21:16)
[2017-05-18] MEDS: Pantoprazole 40mg/100ml IVPB 40 MG/100 ML BAG IVPB SCH ×2 (05:27→17:59)
[2017-05-18] MEDS: Levothyroxine 75 MCG TAB PO SCH (05:27)
[2017-05-18] MEDS ORDERED: POLYETHYLENE GLYCOL 3350 17 GM/Dose PACKET PO PRN (10:00)
[2017-05-18 11:51] LABS: BASO # 0.04 K/mm3 (0.0-2.0); BASO % 0.4 % (0.0-3.0); EOS # 0.1 (0.0-0.7); GRAN # 7.15 (1.4-6.5); GRAN % 78.4 % (50.0-68.0); HEMATOCRIT 30.4 % (36.0-48.0); LYMPH # 1.1 (1.2-3.4); LYMPH % 11.7 % (22.0-35.0); MEAN CELL VOLUME 92.1 fl (80.0-105.0); MEAN CORPUSCULAR HEMOGLOBIN 30.6 pg (25.0-35.0); MEAN CORPUSCULAR HGB CONC 33.2 g/dl (31.0-37.0); MEAN PLATELET VOLUME 9.1 fl (7.0-11.0); MONO # 0.8 (0.1-0.6); MONO % 8.5 % (1.0-6.0); RED CELL DISTRIBUTION WIDTH 13.7 % (11.5-14.5); WHITE BLOOD COUNT 9.1 10^3/ul (4.5-11.0)
[2017-05-18 12:00] LABS: ALB/GLOB RATIO 1.2 (1.1-1.8); ALKALINE PHOSPHATASE 90 U/L (38-126); ALT/SGPT 25 U/L (7-56); AST/SGOT 26 U/L (14-36); BILIRUBIN,TOTAL 0.4 mg/dL (0.2-1.3); BLOOD UREA NITROGEN 16 mg/dL (7-21); CALCIUM 8.8 mg/dL (8.4-10.5); CARBON DIOXIDE 34 mmol/L (21-33); CHLORIDE 96 mmol/L (98-107); GFR AFRICAN-AMERICAN > 60; GLUCOSE,RANDOM 94 mg/dL (70-110); POTASSIUM 4.7 mmol/L (3.6-5.0); SODIUM 135 mmol/L (132-148); TOTAL PROTEIN 5.9 g/dL (5.8-8.3)
--- NOTE | 2017-05-18 15:15 | PN ---
DATE OF SERVICE: 05/18/2017 SUBJECTIVE: The patient is in bed, in no acute distress, nontoxic. No fever and chills. OBJECTIVE: VITAL SIGNS: Temperature is 98, blood pressure is 100/60, respiratory rate of 18. HEENT: Unremarkable. NECK: Supple. LUNGS: Decreased breath sounds. HEART: Normal S1 and S2. ABDOMEN: Soft, nontender. LABORATORY DATA: Laboratory examination reveals a white count of 9, hemoglobin of 10. The chemistries have noted and microbiology is noted. Review of orders reveals the patient to be off antibiotics. ASSESSMENT AND PLAN: This is an 87-year-old with sepsis with a left lower lobe healthcare-associated pneumonia, status post treatment, left knee swelling and pseudogout, status post arthrocentesis, dyslipidemia, carotid artery stenosis, and glaucoma, currently off antibiotics, afebrile. The patient is at risk for developing nosocomial infection. Gonsalo Whipple MD
[2017-05-18] MEDS: Latanoprost 2.5 ml Opht Soln OU SCH (22:04)
--- NOTE | 2017-05-18 22:31 | PN ---
DATE: SUBJECTIVE: An 87-year-old female receiving occupational and physical therapy on the transitional care unit. She is tolerating a pureed diet at this time. Her vital signs show a temperature 97.5 and her blood pressure is 108/57. LABORATORY DATA: Shows WBC of 9.1, RBC 3.3, hemoglobin 10.1, hematocrit 30.4 and platelet count is 296. Chemistry shows sodium 135, potassium 4.7, chloride 96, CO2 of 36, BUN is 16 and creatinine is 0.7. LFT's are normal. ASSESSMENT AND PLAN: The patient had been treated for pneumonia while in the hospital, is currently off of antibiotics, being followed by Infectious Disease. Gastroenterology is following the patient for hiatal hernia and dysphagia, she is tolerating a pureed diet at this time. She has moved her bowels. We are awaiting approval by her insurance company to extend her rehabilitation, she is extremely deconditioned. 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 Elva Mack MD
[2017-05-19] MEDS: Pantoprazole 40mg/100ml IVPB 40 MG/100 ML BAG IVPB SCH (05:10)
[2017-05-19] MEDS: Levothyroxine 75 MCG TAB PO SCH (05:11)
[2017-05-19 10:30] VITALS: BP 116/61; PULSE 84
--- NOTE | 2017-05-19 11:29 | PN ---
DATE: 05/19/2017 SUBJECTIVE: The patient is in bed, in no acute distress, nontoxic. OBJECTIVE: VITAL SIGNS: On exam, temperature is 97, blood pressure is 108/50, respiratory rate of 18 and heart rate of 71. EXAMINATION OF HEENT: Unremarkable. NECK: Supple. LUNGS: Decreased breath sounds. HEART EXAM: Normal S1 and S2. ABDOMEN EXAMINATION: Soft and nontender. LABORATORY EXAMINATION: Reveals a white count is 9.1, hemoglobin of 10 and platelets of 296. BUN of 16 and creatinine of 0.7. Microbiology is noted. Dr. Mack' note from yesterday is reviewed. ASSESSMENT AND PLAN: This is an 87-year-old female who was seen in room #322 this morning with sepsis and left lower lobe healthcare-associated pneumonia, status post treatment. The patient had left knee swelling and pseudogout, status post arthrocentesis; history of dyslipidemia; carotid artery stenosis; glaucoma, currently off of antibiotics, afebrile, however deconditioned. The patient is at risk for developing nosocomial infection. Gonsalo Whipple MD
--- NOTE | 2017-05-19 12:49 | CP.PCM.PN ---
Subjective - Date & Time of Evaluation Date of Evaluation: 05/19/17 Time of Evaluation: 09:40 - Subjective Subjective: Seen and examined at the bedside earlier this morning, continues to tolerate pur ed diet, had pain cake, coffee and juice. Patient did have 2 semi-loose bowel movements yesterday no reports of bleeding, denies abdominal pain. Objective - Vital Signs/Intake and Output Vital Signs (last 24 hours): Temp Pulse Resp BP Pulse Ox 97.5 F L 84 15 116/61 95 05/18/17 15:45 05/19/17 10:28 05/18/17 15:45 05/19/17 10:28 05/18/17 15:45 - Medications Medications: Current Medications Acetaminophen (Tylenol 325mg Tab) 650 mg PO Q4H PRN PRN Reason: Pain, moderate (4-7) Last Admin: 05/13/17 07:21 Dose: 650 mg Atenolol (Tenormin) 25 mg PO DAILY [facility] Last Admin: 05/19/17 10:28 Dose: 25 mg Docusate Sodium (Colace) 100 mg PO TID [facility] Last Admin: 05/19/17 10:27 Dose: Not Given Latanoprost (Xalatan Opht) 0.05 ml OU HS [facility] Last Admin: 05/18/17 22:04 Dose: 0.05 ml Levothyroxine Sodium (Synthroid) 75 mcg PO 0600 [facility] Last Admin: 05/19/17 05:11 Dose: 75 mcg Pantoprazole Sodium (Protonix Ec Tab) 40 mg PO ACB [facility] Polyethylene Glycol (Miralax) 17 gm PO DAILY PRN PRN Reason: Constipation Ursodiol (Actigall) 300 mg PO 0800,1800 [facility] Last Admin: 05/19/17 08:02 Dose: 300 mg - Labs Labs: 05/18/17 11:40 05/18/17 11:40 - Constitutional Appears: No Acute Distress - Eye Exam Eye Exam: Normal appearance. absent: Scleral icterus - ENT Exam ENT Exam: Mucous Membranes Moist - Respiratory Exam Respiratory Exam: Decreased Breath Sounds, NORMAL BREATHING PATTERN. absent: Rales, Wheezes, Respiratory Distress - GI/Abdominal Exam GI & Abdominal Exam: Soft, Normal Bowel Sounds. absent: Guarding, Tenderness, Rebound - Neurological Exam Neurological Exam: Alert, Awake, Oriented x3 Assessment and Plan - Assessment and Plan (Free Text) Assessment: Assessment: Pneumonia Constipation Large hiatal hernia History of cholecystectomy with biliary stent/cholangitis Hypothyroidism history of constipation Plan: continue pure diet Continue Actigall On Colace 3 times a day, hold for diarrhea change IV Protonix twice a day to Protonix by mouth daily MiraLAX prn constipation, to be given if no BM in 48 hours Seen and discussed W/ Dr. Fowler
[2017-05-19 14:08] VITALS: RESP 12; TEMP 97; O2SAT 99
[2017-05-20] MEDS ORDERED: Pantoprazole 40 mg EC Tab PO SCH (07:30)
--- NOTE | 2017-06-02 06:52 | DS ---
SUMMARY: An 87-year-old female with a history of vitamin B12 deficiency, hiatal hernia, dysphagia, pneumonia, degenerative arthritis, history of cholecystectomy, history of arteriosclerotic heart disease, scheduled for transfer to [facility] for rehab therapy. She will continue her B12 treatments as an outpatient. She will be on puree diet as per Infectious Disease and she will continue on Protonix 40 mg b.i.d., Synthroid 75 mcg daily, Tenormin 25 mg daily, Tylenol two tablets q. 4 hours p.r.n. for moderate pain, Xalatan eye drops for glaucoma, and Zofran p.r.n. for nausea. Elva Mack MD
== END 2017-05-19 17:24 | DRG 91 ==
LOC: TRCU 19:31
PROVIDERS: ADMIT Internal Medicine; ATTEND Internal Medicine
PROC: 3E0336Z Introduction of Nutritional Substance into Peripheral Vein, Percutaneous Approach (ICD-10-PCS; 2017-05-11)
PROC: F07Z9FZ Gait Training/Functional Ambulation Treatment using Assistive, Adaptive, Supportive or Protective Equipment (ICD-10-PCS; principal; 2017-05-12)
PROC: F08Z4FZ Home Management Treatment using Assistive, Adaptive, Supportive or Protective Equipment (ICD-10-PCS; 2017-05-12)
DX: R26.89 Other abnormalities of gait and mobility (principal); A41.9 Sepsis, unspecified organism; R65.20 Severe sepsis without septic shock; J18.9 Pneumonia, unspecified organism; R64 Cachexia; E46 Unspecified protein-calorie malnutrition; Z68.1 Body mass index [BMI] 19.9 or less, adult; J44.0 Chronic obstructive pulmonary disease with (acute) lower respiratory infection; G62.9 Polyneuropathy, unspecified; R13.19 Other dysphagia; N39.0 Urinary tract infection, site not specified; E86.0 Dehydration; I65.29 Occlusion and stenosis of unspecified carotid artery; I25.10 Atherosclerotic heart disease of native coronary artery without angina pectoris; E53.8 Deficiency of other specified B group vitamins; H40.9 Unspecified glaucoma; E03.9 Hypothyroidism, unspecified; K44.9 Diaphragmatic hernia without obstruction or gangrene; I10 Essential (primary) hypertension; K59.00 Constipation, unspecified; H26.9 Unspecified cataract; E78.5 Hyperlipidemia, unspecified; M47.9 Spondylosis, unspecified; M17.0 Bilateral primary osteoarthritis of knee; K21.9 Gastro-esophageal reflux disease without esophagitis; Y95 Nosocomial condition; M11.262 Other chondrocalcinosis, left knee; N60.01 Solitary cyst of right breast; Z90.49 Acquired absence of other specified parts of digestive tract; Z87.891 Personal history of nicotine dependence

== ENCOUNTER 2017-05-12 11:47 | Day surgery (SDC) | payer MEDICARE ==
[2017-05-11 20:26] VITALS: BMI 17.9
[2017-05-12] MEDS ORDERED: Lidocaine 2% Inj (20ml) ONE (11:54)
[2017-05-12 12:22] VITALS: RESP 18; O2SAT 97
[2017-05-12 13:54] VITALS: BP 113/52; PULSE 65; TEMP 97
--- NOTE | 2017-05-12 20:02 | VASCULAR ---
PROCEDURE: Ultrasound and fluoroscopically placed left upper extremity PICC line. HISTORY: Long-term IV antibiotics. Needs PICC line PHYSICIAN(S): Jorge Leiva MD. TECHNIQUE: The relative risks and indications of the procedure were explained to the patient and consent obtained. The patient was placed supine on the arteriogram table and the left arm prepped and draped in the usual sterile fashion. A tourniquet was applied to the left axilla. 1% Xylocaine was used to anesthetize the skin and soft tissues at the puncture site above the elbow. The left basilic vein was punctured under direct ultrasound guidance with a micropuncture set. A 0.018 guidewire was advanced centrally and used to measure the length to the SVC/RA junction. A 5 Iraqi single-lumen PICC line 47 cm long was advanced to the SVC/RA junction. The catheter was flushed and secured. The patient tolerated the procedure well. IMPRESSION: 1. Ultrasound and fluoroscopically placed left upper extremity PICC line. A 5 Iraqi single-lumen PICC line 47 cm long was advanced to the SVC/RA junction.
== END 2017-05-12 13:55 ==
LOC: OPSURG 11:47
PROVIDERS: ATTEND Radiology Vascular & Interventional Radiology
DX: J18.9 Pneumonia, unspecified organism (principal); Z79.2 Long term (current) use of antibiotics; J44.0 Chronic obstructive pulmonary disease with (acute) lower respiratory infection; I10 Essential (primary) hypertension; E03.9 Hypothyroidism, unspecified; R62.7 Adult failure to thrive
CPT/HCPCS: 36569; J1644

== ENCOUNTER 2018-04-02 07:18 | Day surgery (SDC) | payer MEDICARE ==
[2018-03-26 13:01] VITALS: BMI 17.2
[2018-04-02 08:07] LABS: BASO # 0.04 K/mm3 (0.0-2.0); BASO % 0.7 % (0.0-3.0); EOS # 0.1 (0.0-0.7); EOS % 2.1 % (1.5-5.0); GRAN # 4.07 (1.4-6.5); GRAN % 67.1 % (50.0-68.0); HEMOGLOBIN 13.5 g/dL (12.0-16.0); LYMPH # 1.5 (1.2-3.4); LYMPH % 24.8 % (22.0-35.0); MEAN CELL VOLUME 90.9 fl (80.0-105.0); MEAN PLATELET VOLUME 10.3 fl (7.0-11.0); MONO # 0.3 (0.1-0.6); MONO % 5.3 % (1.0-6.0); RBC 4.5 10^6/uL (3.5-6.1); RED CELL DISTRIBUTION WIDTH 13.8 % (11.5-14.5); WHITE BLOOD COUNT 6.1 10^3/ul (4.5-11.0)
--- NOTE | 2018-04-02 08:12 | HP ---
Copied To: Radha Montalvo MD Attending MD: Radha Montalvo MD REASON FOR ADMISSION: Left heart catheterization, possible angioplasty, abnormal stress test. BRIEF CLINICAL HISTORY: This is an 87-year-old female with past medical history significant for right bundle-branch block, history of right carotid artery stenosis 70%-80%, complaining of chest pain, dyspnea on exertion. Patient is scheduled for elective cardiac catheterization, possible angioplasty. PAST MEDICAL HISTORY: Significant for CAD, history of right internal carotid artery 70%-80% stenosis. Echo shows IHSS configuration. CURRENT MEDICATIONS: Patient is taking baby aspirin 81 mg po daily, Plavix 75 mg daily, Colace 100 mg p.o. b.i.d., Zetia 10 mg daily, levothyroxine 75 mcg daily, Xalatan eyedrops 0.04 mL in each eye, MiraLax 17 g p.o. daily, aspirin 81 mg daily, atenolol 25 mg p.o. daily, atorvastatin 10 mg daily at dinner, Lumigan eye drop one drop each eye at bedtime, acetaminophen (Tylenol) 325 mg every 6 p.r.n. ALLERGIES: ALLERGY TO CORTISONE, ALLERGY TO IODINE, ALLERGY TO FLU VACCINE. REVIEW OF SYSTEMS: As per HPI. PHYSICAL EXAMINATION: VITAL SIGNS: As follows, height of the patient 5 feet 4 inches, weight of the patient 100 pounds, body mass index 17.2 kg/sq m. HEENT: PERRLA. Extraocular muscles intact. NECK: Supple. No carotid bruits or thyromegaly. CHEST: Clear to auscultation. HEART: S1 and S2, regular. ABDOMEN: Soft. EXTREMITIES: Clubbing and cyanosis negative. DIAGNOSTIC DATA: Recent cardiac workup as follows, patient had an echocardiography on 02/08/2018 that showed ejection fraction of 65%, with IHSS physiology, not well visualized LVOT, [id number]-[id number] aortic regurgitation, mild mitral regurgitation, mild tricuspid regurgitation, may consider pulmonary regurgitation. We will consider FE, cardioversion, FE correlate clinically, consider FE. Patient had a bilateral carotid that mentioned, technically difficult study, moderate plaque in RCA and ICA. Cardiac nuclear stress test, patient underwent Lexiscan dated 02/16/2018 that shows normal LV function, probably abnormal myocardial perfusion study, reversible apical defects suspicion for ischemia, fixed defect basal inferior could be due to previous myocardial injury or versus cannot rule out a small soft tissue attenuation, normal gated wall motion compared to last study, 03/09/2016, the changes appears new and has an inferior defect. Blood workup pending. IMPRESSION: Abnormal stress test, hypertension, hyperlipidemia, hypothyroidism, multiple risk factors for coronary artery disease, abnormal stress test, [id number] mitral regurgitation, [id number] aortic regurgitation, mild tricuspid regurgitation, right bundle-branch block. Further recommendation after the cardiac catheterization. Risk, benefits and alternatives explained to the patient. The patient is agreeable to proceed for cardiac catheterization. We will follow with you. Thank you, Dr. Mack, for providing us the opportunity in taking care of the patient, Zainab Tracey. Radha Montalvo MD TOBIN
[2018-04-02 08:17] LABS: INR 0.98; PROTHROMBIN TIME 11.3 SECONDS (9.4-12.5)
[2018-04-02 08:19] LABS: BLOOD UREA NITROGEN 13 mg/dL (7-21); CALCIUM 9.6 mg/dL (8.4-10.5); GFR NON-AFRICAN AMERICAN 59; HDL CHOLESTEROL 65 mg/dL (29-60)
[2018-04-02 08:30] LABS: LDL CHOLESTEROL 50 mg/dL (0-129)
--- NOTE | 2018-04-02 09:00 | CARD ---
APPROVED REPORT Date of service: 04/02/2018 EKG Measurement Heart [id number] <Conclusion> Normal sinus rhythm Incomplete right bundle branch block Left anterior fascicular block PRWP C/W prior ECG 05/05/17: the rate is slower
[2018-04-02] MEDS ORDERED: Famotidine 20mg/50ml 20 MG/50 ML BAG IVPB ONE (09:27)
[2018-04-02] MEDS ORDERED: DiphenhydrAMINE 50 mg/ml Inj ONE (09:27)
[2018-04-02] MEDS ORDERED: Lidocaine PF 2% (5 ml) Inj (For Cardiac Arrhy) ONE ×2 (10:54→11:02)
[2018-04-02] MEDS ORDERED: Iodixanol 320 MG/ML 200 ML BOTTLE IV ONE (10:55)
[2018-04-02] MEDS ORDERED: Iodixanol 320 MG/ML 100 ML BOTTLE IV ONE (10:55)
[2018-04-02] MEDS ORDERED: Iohexol 350mgl/ml 50 ML ONE (10:55)
[2018-04-02] MEDS ORDERED: Midazolam 2 MG/2 ML VIAL ONE (11:17)
[2018-04-02] MEDS ORDERED: Sodium Chloride 0.9% 1,000 ML IV SCH (12:00)
--- NOTE | 2018-04-02 12:47 | CPOSTOP ---
Copied To: Radha Montalvo MD Attending MD: Radha Montalvo MD DATE: 04/02/2018 PHYSICIAN: Radha Montalvo MD ASSISTANT DIRECTOR OF PLANT OPERATIONS: BLANCHE Barry. TYPE OF ANESTHESIA: Moderate conscious sedation, total dose given 1 mg of Versed and 25 mcg of fentanyl. PRE-PROCEDURE DIAGNOSES: Unstable angina, abnormal stress test. FINDINGS: Normal coronary arteries. FINAL DIAGNOSES: Normal coronary arteries, preserved left ventricular function. POST PROCEDURE CONDITION: The patient's condition is stable. VASCULAR ACCESS SITE: Right femoral groin. CLOSURE DEVICE APPLIED: Mynx. TOTAL RADIATION DOSE: 632.98 milligray unit. TOTAL FLUORO TIME: 2.5 minutes. Radha Montalvo MD
--- NOTE | 2018-04-02 13:46 | CARD ---
APPROVED REPORT Date of service: 04/02/2018 Procedure(s) performed: Left Heart Catheterization HISTORY The patient is a 87 year-old female with a history of : peripheral vascular disease, chronic lung disease, previous diagnostic cath, tobacco history() : The patient is a former smoker , hypertension , dyslipidemia , had an abnormal stress test apical and inferior septal ischemia. INDICATION The indication(s) include : positive stress test. CASE TECHNIQUE The patient was brought electively to the Cardiac Catheterization Laboratory in a fasting state and was prepped and draped in a sterile manner. The right femoral groin was infiltrated with 2% Lidocaine subcutaneous anesthesia. A 6 Fr x 11 cm Tanvi sheath was inserted into the right femoral artery without difficulty. Coronary angiography was performed using coronary diagnostic catheters. The left coronary system was accessed and visualized with a Diagnostic,6 Fr JL 4 catheter. The right coronary system was accessed and visualized with a Diagnostic ,6 Fr JR 4 catheter. The left ventricle was accessed and visualized with a 6 Fr Pigtail catheter. Left ventricular/Aortic Valve gradient assessed on pullback. Left ventriculogram was performed in CRUZ projection. Closure device was deployed with a 6 Fr / 7 Fr MynxGrip without any complications. The patient tolerated the procedure well and there were no complications associated with the procedure. Vessel Analysis The patient's coronary anatomy is right dominant. The left main coronary artery is a medium size vessel without significant stenosis. The left main trifurcates to the left anterior descending, circumflex, and ramus. The left anterior descending artery is a medium size vessel with diffuse calcification noted throughout this vessel and without significant stenosis. The first diagonal branch is a small size vessel with diffuse calcification noted throughout this vessel and without significant stenosis. The second diagonal branch is a small size vessel with diffuse calcification noted throughout this vessel and without significant stenosis. The third diagonal branch is a medium size vessel with diffuse calcification noted throughout this vessel and without significant stenosis. There is a 55% stenosis in the ostial segment. The circumflex artery is a medium size vessel with intimal irregularities and without significant stenosis. The first obtuse marginal branch is a medium size vessel with intimal irregularities and without significant stenosis. The right coronary artery is a large size vessel with intimal irregularities and without significant stenosis. The right posterior descending artery is a medium size vessel with intimal irregularities and without significant stenosis. The right posterolateral branch is a medium size vessel with intimal irregularities and without significant stenosis. Left Ventricle The left ventricle is normal in size with normal contractility. There was no cardiomyopathy. The left ventricular ejection fraction is estimated to be 65%. The left ventricular end diastolic pressure is 10-12 mmHg. There was no gradient across the aortic valve upon pullback. Conclusion Normal major epicardial coronaries D3 has ostial 55% stenosis , which is less than 1.5 mm vessel. Preserved Lv Fx. EF-65%, EDP-10-12 mmof Hg. Recommendations Aggressive Medical TherapyCardiac Risk Reduction Program CC; Drs. Mack/ Peng.
[2018-04-02 17:30] VITALS: TEMP 97.8
[2018-04-02 17:31] VITALS: BP 133/65; PULSE 74; RESP 18; O2SAT 99
== END 2018-04-02 18:00 | disposition home or self-care (01) ==
LOC: CATH 07:18
PROVIDERS: ATTEND Internal Medicine Cardiovascular Disease
DX: R07.9 Chest pain, unspecified (principal); R94.39 Abnormal result of other cardiovascular function study; E78.5 Hyperlipidemia, unspecified; I45.10 Unspecified right bundle-branch block; I10 Essential (primary) hypertension; I65.21 Occlusion and stenosis of right carotid artery; I73.9 Peripheral vascular disease, unspecified; E03.9 Hypothyroidism, unspecified; Z87.891 Personal history of nicotine dependence
CPT/HCPCS: 36415; 80048; 80061; 85025; 85610; 85730; 86850; 86900; 93005; 93458; 99152; C1760; C1769; C2629; J1200; J1644; J2250; J2930; J3010; J7030; J7040; Q9966

== ENCOUNTER 2018-09-04 10:08 | Outpatient (CLI) | payer MEDICARE | END 2018-09-04 10:09 | disposition home or self-care (01) | LOC: LAB 10:08 ==